=== PATIENT | female | born 1985 | race Caucasian/White ===

== ENCOUNTER 2016-11-16 08:35 | Emergency (ER) | payer OTHER ==
[~2016-11-16 08:35] MED LIST: BENZ1TAB7 PO; DEP250A PO; DEP500A PO; HAL5 PO
[2016-11-16 08:44] VITALS: BP 136/96; PULSE 101; RESP 18; O2SAT 98
--- NOTE | 2016-11-16 08:48 | ED.REPORT ---
HPI-Psychiatric Illness Date of Service Nov 16, 2016 ED Provider: Kurt Najera DO The patient is a 31 year old female with a hx of schizophrenia and polysubstance abuse who presents to the ED by EMS after standing outside for 18 hrs in the rain. Family called 911 after the pt would not come inside. On scene , she will not talk to medics or police. Pt has no complaints, denies suicidal ideation and states she has no pain or problems. She saw a counselor on the 01 of November. Nursing Notes Stated Complaint: MENTAL EVAL Chief Complaint: General Complaint Nursing Notes Reviewed: Yes Allergies: Coded Allergies: Sulfa (Sulfonamide Antibiotics) (Verified Allergy, Severe, 06/29/15) Scheduled Benztropine Mesylate (Benztropine Mesylate) 1 Mg Tablet 1 MG PO BID Divalproex DR (Depakote DR) 250 Mg Tablet 250 MG PO HS Divalproex DR (Depakote DR) 500 Mg Tablet 500 MG PO HS Haloperidol (Haloperidol) 5 Mg Tablet 10 MG PO HS Haloperidol (Haloperidol) 5 Mg Tablet 10 MG PO DAILY General Time Seen by MD: 08:47 Chief Complaint Bizarre behavior Hx Obtained From: EMS Unable to Obtain Hx: Patient condition Arrived By: Ambulance Onset Occurred: 17 - 20 hours ago Symptom Duration: Since onset Progression Since Onset: Unchanged Severity: Current: No pain currently Similar Sx Previous: No Risk-Psychiatric Illness Suicide Risk Stratification RF Statements: Risk factors reviewed Past Medical History Past Medical History Notes: recent admit for EtOH intox requiring intubation Past Medical History 1) Schizophrenia 2) History of polysubstance abuse Past Surgical History Unknown Smoking History Light Tobacco Smoker Social History Drug Use: Meth, Other Ambulatory Status Independent Review of Systems Unable to Obtain ROS Patient condition, Mental status Physical Exam Initial Vital Signs Vital Signs (First) Date Time Temp Pulse Resp B/P Pulse Ox O2 Delivery O2 Flow Rate FiO2 11/16/16 08:44 36.5 101 18 136/96 98 Room Air Initial VS: Reviewed Head / Eyes: Atraumatic, Normocephalic, PERRL Respiratory: Breath sounds normal, Clear to auscultation, No respiratory distress Cardiovascular: Regular rate & rhythm, Heart sounds normal Abdomen / GI: Soft, Non-tender, No guarding, No rebound Extremities: Vascular intact, Neuro intact, No swelling, No tenderness Skin: Warm General/Constitutional: Awake does not respond to questions intially refuses to follow nurse and doctor commands Mental Status: Positive: Unresponsive Psychiatric: Not suicidal Interpretation & Diagnostics Lab Results Interpretation Result Diagram: 11/16/16 0903 11/16/16 0903 Test 11/16/16 09:03 11/16/16 12:24 White Blood Count 7.7th/mm3 (3.8-10.1) Red Blood Count 4.49mil/mm3 (3.90-5.20) Hemoglobin 14.7g/dL (12.0-15.6) Hematocrit 43.7% (35.0-46.0) Mean Corpuscular Volume 97.3fL (81-100) Mean Corpuscular Hemoglobin 32.7pg (27.0-35.0) Mean Corpuscular Hemoglobin Concent 33.6% (32.0-37.0) Red Cell Distribution Width 12.2% (12.3-15.4) Platelet Count 185bil/L (150-400) Neutrophils (%) (Auto) 68.9% (40-74) Lymphocytes (%) (Auto) 24.5% (14-46) Monocytes (%) (Auto) 5.3% (4-12) Eosinophils (%) (Auto) 0.9% (0-5) Basophils (%) (Auto) 0.3% (0-3) Sodium Level 138mEq/L (134-144) Potassium Level 4.3mEq/L (3.5-5.2) Chloride Level 98mEq/L (97-108) Carbon Dioxide Level 20mmol/L (18-29) Blood Urea Nitrogen 12mg/dL (6-20) Creatinine 0.88mg/dL (0.57-1.00) Estimat Glomerular Filtration Rate 107mL/min (>59) Glucose Level 97mg/dL (60-99) Calcium Level 9.6mg/dL (8.5-10.1) Total Bilirubin 0.3mg/dL (0.0-1.2) Aspartate Amino Transf (AST/SGOT) 19U/L (0-50) Alanine Aminotransferase (ALT/SGPT) 22U/L (0-32) Alkaline Phosphatase 113U/L (25-150) Total Protein 7.1g/dL (6.4-8.4) Albumin 4.6g/dL (3.4-5.0) Thyroid Stimulating Hormone (TSH) 2.000uIU/mL (0.450-4.500) Hold Lima Top Tube Received (Received) Urine Color Dark yellow (YELLOW) Urine Appearance Cloudy (CLEAR,HAZY) Urine pH 5.5 (5.0-8.0) Urine Specific [place] 1.030 (1.003-1.035) Urine Protein 30mg/dL (NEG,TRACE) Urine Glucose (UA) Negativemg/dL (NEGATIVE) Urine Ketones 40mg/dL (NEGATIVE) Urine Occult Blood Large (NEGATIVE) Urine Nitrite Negative (NEGATIVE) Urine Bilirubin Negative (NEGATIVE) Urine Urobilinogen Normalmg/dL (NORMAL) Urine Leukocyte Esterase Small (NEGATIVE) Urine RBC 3-10/hpf (0-2) Urine WBC 11-50/hpf (0-5) Urine Epithelial Cells Moderate/hpf (NONE-MOD) Urine Crystals Amorphous urates (NONE Urine Bacteria Few/hpf (NONE-FEW) Urine Hyaline Casts None/lpf (NONE) Urine Granular Casts None seen (NONE SEEN) Urine Waxy Casts None seen (NONE SEEN) Urine Red Blood Cell Casts None seen (NONE SEEN) Urine White Blood Cell Casts None seen (NONE SEEN) Urine Mucus Present (None Seen) Urine Trichomonas None seen (NONE SEEN) Urine Yeast None (NONE SEEN) Urinalysis Comment Urine Culture Reflexed Indicated Re-Eval/Medical Decision Med Decision/Clinical Course I suspect that this is severely decompensated mental illness. I recommended that this patient be detained. Patient denied any urinary tract infection symptoms such as burning urgency or frequency. This is asymptomatic bacteriuria I do not suspect that this needs treatment with antibiotics. Counseled Regarding: Diagnosis, Lab results, Need for admission Discharge & Departure Shift Change Sign-Out Patient Care Transferred: Yes Discussed Complaint(s): Yes Additonal Information: Awt placement Impression: Primary Impression: Schizophrenia Schizophrenia type: unspecified Qualified Code: F20.9 - Schizophrenia, unspecified )( Condition at Discharge: Clear for psych facility Disposition: ADMITTED TO HOSPITAL Discharge Condition All VS Reviewed: Yes Condition: Stable Referrals: NOPCP (PCP) [facility] Care Transferred to: [facility] Care Transferred at: 15:20 Scribe Attestation Portion of this note were transcribed by Alayna Graham. I, Dr. O'Nella, personally performed the history, physical exam, and medical decision-making: I reviewed and confirmed the accuracy for the information in the transcribed note. Signed by: ruchi Sharp, 11/16/16 1500 copies to: KYRIE; [facility] Kurt Najera DO Nov 16, 2016 08:47 Alayna Graham Nov 16, 2016 10:01
[2016-11-16 09:14] LABS: BASOPHILS % (AUTO) 0.3 % (0-3); EOSINOPHILS % (AUTO) 0.9 % (0-5); MONOCYTES % (AUTO) 5.3 % (4-12); Mean Corpuscular Hemoglobin 32.7 pg (27.0-35.0); Mean Corpuscular Volume 97.3 fL (81-100); NEUTROPHILS % (AUTO) 68.9 % (40-74); Platelet Count 185 bil/L (150-400)
[2016-11-16 10:00] VITALS: BP 130/80; PULSE 93; RESP 16; O2SAT 96
[2016-11-16 13:00] VITALS: BP 136/82; PULSE 93; RESP 14; O2SAT 96
[2016-11-16 13:05] LABS: APPEARANCE,URINE CLOUDY (CLEAR,HAZY); COLOR,URINE DARK YELLOW (YELLOW); PH,URINE 5.5 (5.0-8.0)
[2016-11-16 13:06] LABS: OCCULT BLOOD,URINE LARGE (NEGATIVE); UROBILINOGEN,URINE NORMAL (NORMAL)
[2016-11-16 15:54] VITALS: BP 133/75; PULSE 90; RESP 16; O2SAT 97
[2016-11-16 17:41] VITALS: BP 140/90; PULSE 96; RESP 14; O2SAT 96
== END 2016-11-16 17:42 | disposition other institution (70) ==
LOC: SED 08:35 → EDBD 08:35 → SED 17:42
DX: F20.9 Schizophrenia, unspecified (principal); F15.90 Other stimulant use, unspecified, uncomplicated; Z79.899 Other long term (current) drug therapy; Z88.2 Allergy status to sulfonamides

== ENCOUNTER 2016-12-17 11:02 | Emergency (ER) | payer OTHER ==
[~2016-12-17] VITALS: Ht 162.6 cm; Wt 91.0 kg
[2016-12-17 11:29] VITALS: BP 150/103; PULSE 90; RESP 18; O2SAT 98
--- NOTE | 2016-12-17 12:31 | ED.REPORT ---
HPI-Psychiatric Illness Date of Service December 17, 2016 ED Provider: Nursing Notes Stated Complaint: PSYCHIATRIC Chief Complaint: Psychiatric Complaint Allergies: Coded Allergies: Sulfa (Sulfonamide Antibiotics) (Verified Allergy, Severe, 06/29/15) Scheduled Benztropine Mesylate (Benztropine Mesylate) 1 Mg Tablet 1 MG PO BID Divalproex DR (Depakote DR) 250 Mg Tablet 250 MG PO HS Divalproex DR (Depakote DR) 500 Mg Tablet 500 MG PO HS Haloperidol (Haloperidol) 5 Mg Tablet 10 MG PO HS Haloperidol (Haloperidol) 5 Mg Tablet 10 MG PO DAILY Lorazepam (Lorazepam) 1 Mg Tablet 1 MG PO QID Metronidazole (Metronidazole) 500 Mg Tablet 500 MG PO BID Olanzapine (Zyprexa) 5 Mg Tablet 5 MG PO BID General Time Seen by MD: 12:31 Past Medical History Past Medical History Notes: recent admit for EtOH intox requiring intubation Past Medical History 1) Schizophrenia 2) History of polysubstance abuse Past Surgical History Unknown Smoking History Light Tobacco Smoker Social History Drug Use: Meth, Other Ambulatory Status Independent Physical Exam Initial Vital Signs Vital Signs (First) Date Time Temp Pulse Resp B/P Pulse Ox O2 Delivery O2 Flow Rate FiO2 12/17/16 11:29 36.6 90 18 150/103 98 12/17/16 23:41 Room Air Interpretation & Diagnostics Lab Results Interpretation Result Diagram: 12/17/16 1310 12/17/16 1310 Test 12/17/16 13:10 White Blood Count 8.8th/mm3 (3.8-10.1) Red Blood Count 4.56mil/mm3 (3.90-5.20) Hemoglobin 14.9g/dL (12.0-15.6) Hematocrit 44.4% (35.0-46.0) Mean Corpuscular Volume 97.4fL (81-100) Mean Corpuscular Hemoglobin 32.7pg (27.0-35.0) Mean Corpuscular Hemoglobin Concent 33.6% (32.0-37.0) Red Cell Distribution Width 12.1% (12.3-15.4) Platelet Count 170bil/L (150-400) Neutrophils (%) (Auto) 62.5% (40-74) Lymphocytes (%) (Auto) 27.8% (14-46) Monocytes (%) (Auto) 6.8% (4-12) Eosinophils (%) (Auto) 2.4% (0-5) Basophils (%) (Auto) 0.3% (0-3) Sodium Level 141mEq/L (134-144) Potassium Level 3.9mEq/L (3.5-5.2) Chloride Level 100mEq/L (97-108) Carbon Dioxide Level 27mmol/L (18-29) Blood Urea Nitrogen 8mg/dL (6-20) Creatinine 0.78mg/dL (0.57-1.00) Estimat Glomerular Filtration Rate 123mL/min (>59) Glucose Level 96mg/dL (60-99) Calcium Level 10.0mg/dL (8.5-10.1) Total Bilirubin 0.3mg/dL (0.0-1.2) Aspartate Amino Transf (AST/SGOT) 22U/L (0-50) Alanine Aminotransferase (ALT/SGPT) 21U/L (0-32) Alkaline Phosphatase 107U/L (25-150) Total Protein 7.5g/dL (6.4-8.4) Albumin 4.8g/dL (3.4-5.0) Thyroid Stimulating Hormone (TSH) 3.160uIU/mL (0.450-4.500) Hold Lima Top Tube Received (Received) Valproic Acid (Depakene) Level 3ug/mL (50-125) Discharge & Departure Referrals: NOPCP (PCP) Kurt Najera DO December 17, 2016 12:31
--- NOTE | 2016-12-17 12:37 | ED.REPORT ---
HPI-Psychiatric Illness Date of Service December 17, 2016 ED Provider: History of Present Illness: 31yo female with hx. of schizophrenia, reportedly not at baseline per accompanying sample case porter from [facility]. Pt. does report some use of unspecified illicit substances. Declines to answer most questions about her health history, including psych medication compliance. She denies any SI/HI. Nursing Notes Stated Complaint: PSYCHIATRIC Chief Complaint: Psychiatric Complaint Nursing Notes Reviewed: Yes Allergies: Coded Allergies: Sulfa (Sulfonamide Antibiotics) (Verified Allergy, Severe, 06/29/15) Scheduled Benztropine Mesylate (Benztropine Mesylate) 1 Mg Tablet 1 MG PO BID Divalproex DR (Depakote DR) 250 Mg Tablet 250 MG PO HS Divalproex DR (Depakote DR) 500 Mg Tablet 500 MG PO HS Haloperidol (Haloperidol) 5 Mg Tablet 10 MG PO HS Haloperidol (Haloperidol) 5 Mg Tablet 10 MG PO DAILY General Time Seen by MD: 12:31 Chief Complaint Bizarre behavior brokerage office manager reports increased "standing and staring." Hx Obtained From: Processing Inspector ([facility] case sealer) Arrived By: Walk-in Onset Occurred: Onset unknown Symptom Duration: Duration unknown Recent Healthcare: No recent doctor visit Similar Sx Previous: Yes Risk-Psychiatric Illness Suicide Risk Stratification Suicide Risk Factors - Adult: : Prior psych admission: Substance abuse RF Statements: Risk factors reviewed Past Medical History Past Medical History Notes: recent admit for EtOH intox requiring intubation Past Medical History 1) Schizophrenia 2) History of polysubstance abuse Past Surgical History Unknown Smoking History Light Tobacco Smoker Social History Drug Use: Meth, Other Ambulatory Status Independent Review of Systems Unable to Obtain ROS Patient condition Physical Exam Initial Vital Signs Vital Signs (First) Date Time Temp Pulse Resp B/P Pulse Ox O2 Delivery O2 Flow Rate FiO2 12/17/16 11:29 36.6 90 18 150/103 98 12/17/16 23:41 Room Air Initial VS: Reviewed General/Constitutional: No acute distress, Well hydrated Alertness: Positive: Confused (schizo-affect) Behavior: Positive: Uncooperative, Withdrawn Psychiatric: Not suicidal, Not homicidal Abnormal Mood/Affect: Positive: Flat affect Respiratory / Chest: Breath sounds NL, Breath sounds = bilat, No respiratory distress Cardiovascular: Heart rate NL, Regular rhythm, Heart sounds NL Abdomen: Soft, No guarding Interpretation & Diagnostics Interpretation & Diagnostics: Serum Valproic acid =3 (range 50-100) Lab Results Interpretation Result Diagram: 12/17/16 1310 12/17/16 1310 Test 12/17/16 13:10 White Blood Count 8.8th/mm3 (3.8-10.1) Red Blood Count 4.56mil/mm3 (3.90-5.20) Hemoglobin 14.9g/dL (12.0-15.6) Hematocrit 44.4% (35.0-46.0) Mean Corpuscular Volume 97.4fL (81-100) Mean Corpuscular Hemoglobin 32.7pg (27.0-35.0) Mean Corpuscular Hemoglobin Concent 33.6% (32.0-37.0) Red Cell Distribution Width 12.1% (12.3-15.4) Platelet Count 170bil/L (150-400) Neutrophils (%) (Auto) 62.5% (40-74) Lymphocytes (%) (Auto) 27.8% (14-46) Monocytes (%) (Auto) 6.8% (4-12) Eosinophils (%) (Auto) 2.4% (0-5) Basophils (%) (Auto) 0.3% (0-3) Sodium Level 141mEq/L (134-144) Potassium Level 3.9mEq/L (3.5-5.2) Chloride Level 100mEq/L (97-108) Carbon Dioxide Level 27mmol/L (18-29) Blood Urea Nitrogen 8mg/dL (6-20) Creatinine 0.78mg/dL (0.57-1.00) Estimat Glomerular Filtration Rate 123mL/min (>59) Glucose Level 96mg/dL (60-99) Calcium Level 10.0mg/dL (8.5-10.1) Total Bilirubin 0.3mg/dL (0.0-1.2) Aspartate Amino Transf (AST/SGOT) 22U/L (0-50) Alanine Aminotransferase (ALT/SGPT) 21U/L (0-32) Alkaline Phosphatase 107U/L (25-150) Total Protein 7.5g/dL (6.4-8.4) Albumin 4.8g/dL (3.4-5.0) Thyroid Stimulating Hormone (TSH) 3.160uIU/mL (0.450-4.500) Hold Lima Top Tube Received (Received) Valproic Acid (Depakene) Level 3ug/mL (50-125) Re-Eval/Medical Decision Med Decision/Clinical Course Pt. is non-compliant with meds, likely resulting in decompensation of schizophrenia. FOR[facility] PATROLMAN consulted and reports Pt. has VELASQUEZ, requiring CDMHP eval in ED to consider possible detainment. Juan J Reid, CDP came and evaluated Pt. She will be detained to [facility], bed available at 12:00AM Counseled Regarding: Diagnosis, Need for transfer Discharge & Departure Impression: Primary Impression: Schizophrenia Schizophrenia type: undifferentiated schizophrenia Qualified Code: F20.3 - Undifferentiated schizophrenia Additional Impression: Noncompliance with medication regimen )( Condition at Discharge: Clear for psych facility Disposition: Transfer, Psychiatric Inpt Transfer Requested at: 21:00 Receiving Hospital: [facility] Transfer Accepted: Yes Transfer Accepted at: 21:30 Transfer Reason: Higher level of care Patient Informed: Unable Referrals: NOPCP (PCP) EDSupervising Provider for APC: Steven Mcleod MD, Christopher R PAC December 17, 2016 12:37 Steven Mcleod MD December 18, 2016 07:21
[2016-12-17 13:23] LABS: BASOPHILS % (AUTO) 0.3 % (0-3); EOSINOPHILS % (AUTO) 2.4 % (0-5); MONOCYTES % (AUTO) 6.8 % (4-12); Mean Corpuscular Hemoglobin 32.7 pg (27.0-35.0); Mean Corpuscular Volume 97.4 fL (81-100); NEUTROPHILS % (AUTO) 62.5 % (40-74); Platelet Count 170 bil/L (150-400)
[2016-12-17 23:41] VITALS: BP 128/84; RESP 16; O2SAT 95
== END 2016-12-17 23:45 | disposition other institution (70) ==
LOC: SED 11:02
DX: F20.3 Undifferentiated schizophrenia (principal); Z91.14 Patient's other noncompliance with medication regimen; F17.200 Nicotine dependence, unspecified, uncomplicated; Z88.2 Allergy status to sulfonamides

== ENCOUNTER 2016-12-20 12:20 | Inpatient (IN) | payer MEDICAID, OTHER ==
[~2016-12-20] VITALS: Ht 162.6 cm; Wt 91.5 kg
--- NOTE | 2016-12-20 16:05 | NUR ---
0700- 1900. nurs. Admit note .. 31 y.o. female pt admitted to [facility] at 1455 from [facility], transported by [facility]. Pt has outpt care with [place] services, AMAURY Salinas, and Dr Perez. Pt was on LRO since prev recent hosp. at [facility], but was apparently failing to take meds, not eating, sleeping, or taking care of hygiene, standing outside her apt building for several hours at a time unresponsive, not paying rent at risk of eviction. Pt apparently has hx of meth and MJ abuse, and reports use, but RDS in [facility] ED on 12/17 negative. Pt admitted to [facility] on a petition to revoke LRO and is now on a order for continuance with hearing on 12/25/16. Pt transferred to [facility] because of pt privacy concerns at [facility]. On admission pt pleasant, familiar with unit, some latency in verbal expression ,some sadness re not wanting to be spending time in hospital wanting "to have a greater spiritual experience" and denying AHs but c/o GUZMAN on R. temporal area and some pinching pain in small area of L temporal area. Pt reporting that she is not menstruating as reported " because I am " Pt is on metronidazole 500mg po BID for 7 days [facility] Pt has bartholin gland cyst on L. labia txed with warm wet compresses. Pt has possible bacterial vaginosis.
[2016-12-20] MEDS ORDERED: LORA1TAB PO (17:07)
[2016-12-20] MEDS ORDERED: METR500T19 PO (17:07)
[2016-12-20] MEDS ORDERED: OLAN5TAB4 PO (17:11)
[2016-12-20] MEDS ORDERED: Magnesium Hydroxide 10 mL Oral Concentration PO PRN (17:20)
[2016-12-20] MEDS ORDERED: Benzocaine-Menthol Lozenge 2/Pkg PO PRN (17:20)
--- NOTE | 2016-12-20 20:35 | NUR ---
Observations 0900 to 0 Pt arrived on unit at 1455 and was able to complete the admission process and signed all paperwork. Pt affect and mood was flat, guarded and isolative. Pt was in her room and isolative most of the shift coming out to D.R. occasionally. Pt was minimally social when approached by staff, responding with short answers. Pt attended meals in D.R. and 100% of dinner. Pt was offered snack but declined. Pt was observed every 15 minutes throughout the shift as ordered. Pt is currently in bed resting, respirations apparent.
[2016-12-20] MEDS: METRONIDAZOLE 500 MG PO SCH (21:50)
--- NOTE | 2016-12-21 05:20 | NUR ---
nursing, nights, 11-7 s/o- has appeared to sleep after 2114 during q 15 minute assessments. a- no apparent distress. p- monitor behavior/emotional state, quality, times and amount of sleep, use and effect of medication. milly
[2016-12-21] MEDS: METRONIDAZOLE 500 MG PO SCH ×2 (07:48→20:35)
[2016-12-21 10:15] VITALS: BP 127/85; PULSE 77; RESP 16
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
--- NOTE | 2016-12-21 21:12 | NUR ---
Observations 0900 to 2130 Pt affect and mood was flat, guarded and isolative. Pt has been standing in her doorway/hallway and staring down the hallway refusing to respond when approached and getting worse throughout the day. Pt was isolative coming in and out of room and out to D.R. occasionally. Pt was minimally social when approached by staff, responding with one word answers and head nods. Pt almost appears. Pt attended meals in D.R. and ate approximately 50-60% of meals. Pt was offered snack but declined. Pt was observed every 15 minutes throughout the shift as ordered.
[2016-12-21] MEDS: LORazepam 1 mg Tablet PO PRN (21:58)
--- NOTE | 2016-12-22 05:34 | NUR ---
Pt rigidly standing in hallway staring ahead with a fixed gaze, attempting to respond to questions but unable to get out a word except for an inaudible answer. Movements are much delayed she does not engage in spontaneous conversation and has difficulty making needs known. Pt has great difficulty following through on a task, encouraged her to communicate with a thumbs up or down but she was unable to. She is disheveled, thought blocking evident and although she needed many prompts to swallow medications she was compliant. Pt received Ambien 5mg and Ativan 1mg at 2158. Pt slept 7.25 hours without interruption.
[2016-12-22 08:00] VITALS: BP 116/80; PULSE 87; RESP 18
[2016-12-22] MEDS: METRONIDAZOLE 500 MG PO SCH ×2 (08:07→20:32)
--- NOTE | 2016-12-22 12:47 | PCM.PNPSY ---
Subjective Date of Service December 22, 2016 Subjective I spent 30 minutes both reviewing treatment plan with clinical team, interviewing the patient and providing supportive/educational psychotherapy. I spent more than 50% of the time counseling the patient. I reviewed the treatment plan with the patient and discussed options available including the potential risks, benefits and side effects. [place] reports being sad and missing her family. She continues to have severe impairment in Thought organization and mood stability. Staff reports that she has been attempting to participate in one-to-one unit and group activities but that she is so psychomotor retarded that she is having difficulty. She slept 6 hours. She denies medication side effects. Patient was not able to identify her medications or what they were used to treat. Current Medications Current Medications Clonazepam 0.5 mg BID PO Last administered on 12/22/16 08:07; Admin Dose 0.5 MG ; Start 12/21/16 at 20:30 Lorazepam 1 mg Q4H PRN PO Last administered on 12/21/16 21:58; Admin Dose 1 MG ; Start 12/20/16 at 17:20 Olanzapine 5 mg BID PO Last administered on 12/21/16 07:49; Admin Dose 5 MG; Start 12/20/16 at 20:30; Stop 12/21/16 at 14:24; Status DC Olanzapine 10 mg BID PO Last administered on 12/22/16 08:07; Admin Dose 10 MG; Start 12/21/16 at 20:30 Patient Own Medication 1 ea BID PO Last administered on 12/22/16 08:07; Admin Dose 1 EA; Start 12/20/16 at 20:30 Zolpidem Tartrate 5 mg HS PRN PO Last administered on 12/21/16 21:58; Admin Dose 5 MG; Start 12/20/16 at 17:20 Mental Status Exam Vital Signs Vital Signs Date Time Temp Pulse Resp B/P Pulse Ox O2 Delivery O2 Flow Rate FiO2 12/22/16 08:00 37.0 87 18 116/80 Appearance: Unkept, Disheveled Attitude: Guarded Behavior: Other (prolonged blank stare) Affect: Restricted, Flat Mood: Dysthymic, Fearful Thought Process/Associations: Blocking Speech Production: Soft, Mumbled Speech Rate: Lags/Latency Speech Articulation: Slurred Thought Content: Anabaptism preoccupation Danger to Self/Suicidal Ideati: None Danger to Others: None Delusions: Other (Preocupation "getting to Eros") Hallucinations: Auditory (Denies), Visual (Denies) Consciousness: Alert Orientation: Person, Place, Date, Situation Memory: Grossly Intact Estimate Intellectual Function: Below Average Basis for IQ estimate: Word use/vocabulary, Educational history (9th grade education) Cognitive Testing Method: Spelling forward & backward Insight: Limited Judgement: Limited Mental Health Plan Patient is a 31 yo female in a nearly catatonic state and a very poor historian. She has a history of schizophrenia and poly substance abuse and was transferred to the care center from [facility] due to her ex-spouse being on staff there. She was evaluated in [facility] ED on 12/17/16 for bizarre behavior and transferred to [facility] where a bed was available. Per nursing staff, patient 's ex- is on staff which led to a "conflict of interest resulting in legal matters", they requested a transfer to our facility. She has likely been noncompliant with her medications leading to decompensation. Substance abuse is likely a contributing factor however patient is not specific about recent use and urine tox dip in the ED on 12/17/16 was negative. She appears disheveled, acting detached, and bizarre. She has intense feelings about God in that she wants Him to be respected and when asked about family history she states that her mother has diabetes type II or she used to if God has cured it already. She does not seem to have an extraordinary relationship with God as they have no way of communicating with each other with the exception of prayer. She does feel her primary goal is to get to [place]. She presents suspicious and guarded with prolonged blank stare. Her Thought process is guarded with occasional thought blocking. [place] AXIS I: schizophrenia chronic paranoid poly substance abuse AXIS II: differed AXIS III: bacterial vaginosis AXIS IV: medication non compliance AXIS V: GAF 25 Treatments Patient is being provided with a high degree of safety through the structure and active adult engagement. We will focus on developing improved coping skills and identifying stressors that may have led to current episode. We will attempt to: Integrate into therapeutic groups, milieu and individual therapy. Maintain in a closely monitored and structured unit Provide low-stimulation environment Obtain collateral data to assist in treatment planning Assess degree of lability of affect and impulse control Complete safety plan Decrease frequency of relapse and need for re-hospitalization Denies thoughts of harm to self Establish a consistent sleep pattern Use medication effective in stabilization of mood and/or thought process Reduce the risk of imminent harm to self and/or others by providing a safe environment Assure patient tolerates medication without side effects Patient will be on the following psychiatric medications: metronidazole Zyprexa increase to 10mg PO BID Legal status: 90 day petition to revoke. Patient will have a chance to talk to the traffic survey technician on Saturday. Clayton Cash MD December 22, 2016 12:46
--- NOTE | 2016-12-22 14:52 | NUR ---
Nursing Notes Day shift S: Can I watch a movie? O: Pt asked appropriate questions today. Pt more interactive today, she does stand and stare at people, appears catatonic. Pt responds to direct questions with a very mumbled, quiet response that is difficult to understand. A: Pt appears disheveled, her hair unkempt. Pt slow to respond. Pt will stand and just stare with a fixed gaze at other people, almost through them. Pt has interacted with other patients today and has also participated in group meeting this morning P: Follow plan of care, monitor behaviors.
--- NOTE | 2016-12-22 19:40 | NUR ---
Observations 0900 to 2130 Pt maintained behavioral control throughout the shift. Pt mostly communicates in 1-2 words, spent most of day staring vacantly. Pt communicated more successfully in morning and communication decreased as day went on. Pt attended community meeting and said daily goal was to get out of hospital. Pt briefly sat on patio and threw nerf football. Pt smiled once at a joke from peer but otherwise was flat, withdrawn. pt ate 50-75% of meals and was observed every 15 minutes as ordered.
--- NOTE | 2016-12-23 05:18 | NUR ---
Nursing Note 7pm to 11pm Open Tenter Operator Pt appears somewhat improved, less mute with peers and select staff, hygiene improved, however when this personal lines underwriter approached pt. she smiled but would not answer questions. Pt took meds with less time examining them. Still paranoid and guarded. Received Ambien 5mg for sleep and slept without interruption throughout the night. Monitored pt. with q15 min face checks for safety location and accountability
[2016-12-23] MEDS: METRONIDAZOLE 500 MG PO SCH ×2 (07:43→20:58)
[2016-12-23 08:30] VITALS: BP 138/95; PULSE 98; RESP 16
--- NOTE | 2016-12-23 11:56 | NUR ---
Nursing Note [id number] Behavior S/O: Pt ate 100% of breakfast. Pt took am medications as ordered. Pt d/n attend group, but stood in hallway instead. Pt has no interaction with peers. When asked questions, she answered me in an extremely muffled tone or with her lips closed. Pt has no eye contact with staff or peers. A: Pt is paranoid & guarded. P: Provide supportive environment. Monitor medications & effects.
--- NOTE | 2016-12-23 18:35 | PCM.PNPSY ---
Subjective Date of Service December 23, 2016 Subjective The patient only had minimal responses to questions. She seemed quite apprehensive and fearful. She denied side effects. Sleep: 7 hours, "a little" Appetite: "Okay" Suicidal and homicidal ideation: Denied Auditory hallucinations: Would not respond Visual hallucinations: Would not respond Other Psychotic Symptoms: Appeared quite frightened Anxiety: Endorsed Depression: Would not respond Current Medications Current Medications Clonazepam 0.5 mg BID PO Last administered on 12/23/16 07:43; Admin Dose 0.5 MG ; Start 12/21/16 at 20:30 Olanzapine 10 mg BID PO Last administered on 12/23/16 07:43; Admin Dose 10 MG; Start 12/21/16 at 20:30 Mental Status Exam Appearance: Unkept, Disheveled Attitude: Guarded Behavior: Other (prolonged blank stare) Affect: Restricted, Flat Mood: Dysthymic, Fearful Thought Process/Associations: Blocking Speech Production: Soft, Mumbled Speech Rate: Lags/Latency Speech Articulation: Slurred Thought Content: Other (difficult to assess) Danger to Self/Suicidal Ideati: None Danger to Others: None Delusions: Other (Preocupation "getting to Eros") Hallucinations: Auditory (unable to assess), Visual (unable to assess) Consciousness: Alert Orientation: Person, Place, Situation Memory: Untestable Estimate Intellectual Function: Below Average Basis for IQ estimate: Word use/vocabulary, Educational history (9th grade education) Attention/Concentration & Cogn: Impaired Insight: Limited Judgement: Limited Mental Health Plan Patient is a 31 yo female in a nearly catatonic state which makes her a very poor historian with history of schizophrenia and poly substance abuse transferred [facility] the [facility] from [facility]. She was evaluated in [facility] ED on 12/17/16 for bizarre behavior and transferred to [facility] where a bed was available. Per nursing staff, patient's ex- is on staff which led to a "conflict of interest resulting in legal matters", they requested a transfer to our facility. She has likely been noncompliant with her medications leading to decompensation. The patient is here on a petition for revocation of less restrictive order. Substance abuse is likely a contributing factor however patient is not specific about recent use and urine tox dip in the ED on 12/17/16 was negative. She appears disheveled, acting detached, and bizarre. She has intense feelings about God in that she wants him to be respected and when asked about family history she states that her mother has diabetes type II or she used to if God has cured it already. She reported her primary goal is to get to [place]. She presents suspicious and guarded with prolonged blank stare. Due to her level of thought blocking or current level of psychosis is difficult to assess. [place] AXIS I: Schizophrenia, chronic paranoid type Poly substance use disorder AXIS II: Deferred AXIS III: Bacterial vaginosis AXIS IV: Unknown AXIS V: GAF 25 Medications Metronidazole 500 mg twice a day Olanzapine 10 mg twice a day Clonazepam 0.5 mg twice daily Zolpidem 5 mg nightly as needed for insomnia Lorazepam 1 mg every 4 hours as needed for anxiety or agitation Treatments 1. The patient is admitted to the inpatient unit and will be provided a safe and secure environment. 2. The patient is denying current active suicidality and is not in need of a one-to-one at this time. 3. The patient is encouraged to participate with group and milieu activities. 4. The patient will be seen by the treatment team on a daily basis to assess symptoms, side effects and response to treatment. 5. Continue current medications 6. Contact outpatient provider regarding need for mood stabilizer or alternate medication. 7. Anticipated length of stay is 14+ days. Quinn Rosen MD December 23, 2016 18:35
--- NOTE | 2016-12-23 19:39 | NUR ---
Observations 0900 to 2130 Pt affect and mood was flat, guarded, withdrawn and isolative. Pt has been standing in her doorway/hallway and staring down the hallway at times. Pt was isolative coming in and out of room and out to D.R. occasionally. Pt was minimally social when approached by staff, responding with one word answers and head nods. Pt had a visitor and it appeared to go well. Pt attended meals in D.R. and ate 100% of breakfast and 75% of lunch. Pt has not eaten dinner yet. Pt was offered snack but declined. Pt took a shower with some encouragement from staff. Pt was observed every 15 minutes throughout the shift as ordered. Pt is currently resting in bed, eyes closed, respirations apparent.
--- NOTE | 2016-12-23 23:25 | NUR ---
Nurses Note Evening Patient has been nearly mute whispering and isolating to her room. Patient has psychomotor retardation. She was visited by a male friend without improved spontaneity. Patient remains medication compliant without adverse effects. Her hygiene and appetite have been poor,sleep undisturbed. Will maintain q 15min. checks for safety and support. Addendum: 12/23/16 at 2331 by RAN MARTINEZ RN Amended: Links added.
--- NOTE | 2016-12-24 05:38 | NUR ---
Nursing note: shift supervisor rn/sleep Patient appears to be sleeping on safety checks during the night, no complaints voiced
[2016-12-24 08:50] VITALS: BP 124/87; PULSE 76; RESP 15
[2016-12-24] MEDS: METRONIDAZOLE 500 MG PO SCH ×2 (09:34→20:23)
--- NOTE | 2016-12-24 13:16 | NUR ---
Nursing Note [id number] Behavior S/O: Pt ate 100% of breakfast & lunch. Vital signs stable. Pt has been able to talk minimally with peers, staff & on the phone. Tone is very quiet, but understandable. Pt hesitant to answer questions. Pt asked why I came into her room while she was on the phone. Pt has intense stares at times or has avoidant gaze. Pt reports, "I'm going home tomorrow." She is scheduled for a hearing tomorrow & has agreed to take medications prior to court. A: Pt appears paranoid & guarded. She appears to be responding to internal stimuli. P: Provide supportive environment. Monitor medications & effects.
--- NOTE | 2016-12-24 16:14 | NUR ---
Observations 0900 to 2130 Pt affect and mood was flat, guarded, withdrawn and isolative. Pt has been in bed a majority of the shift, [facility] in the late morning and early afternoon. Pt was minimally social when approached by staff, responding with one word answers and head nods. Pt attended meals in D.R. and ate 100% of breakfast and 100% of lunch. Pt was offered snack but declined. Pt was observed every 15 minutes throughout the shift as ordered. Pt is currently resting in bed, eyes closed, respirations apparent.
[2016-12-24] MEDS: Divalproex (QD) 500 mg ER24 Tablet PO SCH (20:22)
--- NOTE | 2016-12-24 22:42 | PCM.PNPSY ---
Subjective Date of Service December 24, 2016 Subjective The patient was somewhat more talkative today. She furrowed her brow while looking intently at this writer technical publications. She assented that she believed that she was communicating telepathically. We review prior treatment with Haldol, Depakote and Zyprexa. She felt the Depakote was somewhat helpful. She denied side effects. Sleep: 9 hours Appetite: "Okay" Suicidal and homicidal ideation: Denied Auditory hallucinations: denies Visual hallucinations: denies Other Psychotic Symptoms: endorsed telepathy Anxiety: Endorsed Depression: Denied Current Medications Current Medications Divalproex Sodium 1,000 mg HS PO Last administered on 12/24/16t 20:22; Admin Dose 1,000 MG; Start 12/24/16 at 21:00 Mental Status Exam Appearance: Unkept, Disheveled Attitude: Guarded Behavior: Other (prolonged furrowed stare) Affect: Restricted, Flat Mood: Dysthymic, Fearful Thought Process/Associations: Blocking Speech Production: Soft, Mumbled Speech Rate: Lags/Latency Speech Articulation: Slurred Thought Content: Other (difficult to assess) Danger to Self/Suicidal Ideati: None Danger to Others: None Delusions: Other (Endorses telepathy) Hallucinations: Auditory (Denies), Visual (Denies) Consciousness: Alert Orientation: Person, Place, Situation Memory: Untestable Estimate Intellectual Function: Average (to ), Below Average Basis for IQ estimate: Word use/vocabulary, Educational history (9th grade education) Attention/Concentration & Cogn: Impaired Insight: Limited Judgement: Limited Mental Health Plan Patient is a 31 yo female who presented in a nearly catatonic state with a history of schizophrenia and polysubstance use [facility] She was evaluated in [facility] ED on 12/17/16 for bizarre behavior and transferred to [facility] where a bed was available. Per nursing staff, patient's ex- is on staff and they requested a transfer to our facility. The patient has been medication non-adherent leading to decompensation. The patient is here on a petition for revocation of less restrictive order. Substance abuse is likely a contributing factor however patient is not specific about recent use and urine tox screen in the ED on was negative. She appears disheveled, acting detached, and bizarre. She is also expressing synagogue preoccupation with her reported primary goal to get to [place]. She presents suspicious and guarded with prolonged blank stare. Due to her level of thought blocking or current level of psychosis is difficult to assess, but she did endorse telepathy today and agreed to take Depakote. [place] AXIS I: Schizophrenia, chronic paranoid type Poly substance use disorder AXIS II: Deferred AXIS III: Bacterial vaginosis AXIS IV: Unknown AXIS V: GAF 25 Medications Metronidazole 500 mg twice a day Olanzapine 10 mg twice a day Clonazepam 0.5 mg twice daily Zolpidem 5 mg nightly as needed for insomnia Lorazepam 1 mg every 4 hours as needed for anxiety or agitation Treatments 1. The patient is admitted to the inpatient unit and will be provided a safe and secure environment. 2. The patient is denying current active suicidality and is not in need of a one-to-one at this time. 3. The patient is encouraged to participate with group and milieu activities. 4. The patient will be seen by the treatment team on a daily basis to assess symptoms, side effects and response to treatment. 5. Add DepakoteER 1000mg po nightly 6. Contacted outpatient provider regarding need for mood stabilizer or alternate medication, but not available and message left. 7. Anticipated length of stay is 14+ days. Quinn Rosen MD December 24, 2016 22:42 Quinn Rosen MD December 24, 2016 22:42
--- NOTE | 2016-12-24 23:10 | NUR ---
NURSING NOTE [id number] Mood: "congest... congestion" Affect: constricted Behavior: Pt. isolating to her room for most of the shift. Did come out to eat dinner. Approached this pattern chart writer several times this shift as though she had a question to ask but would just stand and stare, silently. Thought processes: endorsing AH/VH but could not elaborate as to what they were. Pt. has delayed responses. Appears very guarded. Needs much encouragement to answer questions and then when she does answer it is in a very low whisper. When pt was asked about her mood she responded "congestion" but then denied any cold or congestion symptoms and then told this pattern chart writer "I just need to walk for a little bit" and asked this pattern chart writer to walk w/her. She laughed when this pattern chart writer asked her if she had set a goal for the day but could not explain why. Maikol Conn 5 mg @ HS
--- NOTE | 2016-12-25 06:15 | NUR ---
Nursing Note 11pm to 7am Director Of Rehabilitation Pt asleep at start of shift. Got Ambien 5mg at 2021 and slept through the night without interruption. No issues observed or reported. Monitored pt. with q 15 minute face checks for safety, location and accountability. Monitored pt with q 15 minute face checks for safety, location and accountability
[2016-12-25] MEDS: METRONIDAZOLE 500 MG PO SCH ×2 (08:30→21:23)
--- NOTE | 2016-12-25 14:16 | NUR ---
Nursing Note [id number] Behavior S/O: Pt ate 100% of breakfast & lunch today. When asked how she was feeling she stated, "I'm pissed. I want to go home. My rents paid and I'm wasting it." Pt requesting a test because she thinks she is . Pt had test done in our ER prior to her being sent to [facility] then being transferred here. Pt stopped talking & started mumbling after being told she wasn't . A: Pt has no insight into illness. P: Provide supportive environment. Monitor medications & effects.
[2016-12-25 14:25] VITALS: BP 111/59; PULSE 66; RESP 17
--- NOTE | 2016-12-25 16:43 | PCM.PNPSY ---
Subjective Date of Service December 25, 2016 Subjective Patient had recently woken from rest upon our visit today, she was minimally conversant. She has tried Risperidone in the past which made her "narcoleptic". Records from [facility] showed that she had been taking Invega 6 mg previously. She remains quiet and will only occasionally answer questions. She does state that she wants to be at home and safe with her kids. Sleep: 12 hours Appetite: "Okay" Suicidal and homicidal ideation: Denied Auditory hallucinations: denies Visual hallucinations: denies Other Psychotic Symptoms: endorsed telepathy, States that she wants to hurt the thoughts inside her. No racing thoughts Anxiety: Endorsed Depression: 12/19 Current Medications Current Medications Divalproex Sodium 1,000 mg HS PO Last administered on 12/24/16t 20:22; Admin Dose 1,000 MG; Start 12/24/16 at 21:00 Mental Status Exam Vital Signs Vital Signs Date Time Temp Pulse Resp B/P Pulse Ox O2 Delivery O2 Flow Rate FiO2 12/25/16 14:25 36.8 66 17 111/59 Appearance: Unkept, Disheveled Attitude: Guarded Behavior: Other (prolonged furrowed stare) Affect: Restricted, Flat Mood: Dysthymic, Fearful Thought Process/Associations: Blocking Speech Production: Soft, Mumbled Speech Rate: Lags/Latency Speech Articulation: Slurred Thought Content: Other (difficult to assess) Danger to Self/Suicidal Ideati: None Danger to Others: None Delusions: Other (Endorses telepathy) Hallucinations: Auditory (Denies), Visual (Denies) Consciousness: Alert Orientation: Person, Place, Situation Memory: Untestable Estimate Intellectual Function: Average (to ), Below Average Basis for IQ estimate: Word use/vocabulary, Educational history (9th grade education) Attention/Concentration & Cogn: Impaired Insight: Limited Judgement: Limited Mental Health Plan Patient is a 31 yo female who presented in a nearly catatonic state with a history of schizophrenia and polysubstance use [facility] from [facility]. She was evaluated in [facility] ED on 12/17/16 for bizarre behavior and transferred to [facility] where a bed was available. Per nursing staff, patient's ex- is on staff and they requested a transfer to our facility. The patient has been medication non-adherent leading to decompensation. The patient is here on a petition for revocation of less restrictive order. Substance abuse is likely a contributing factor however patient is not specific about recent use and urine tox screen in the ED on was negative. She appears disheveled, acting detached, and bizarre. She is also expressing restoration preoccupation with her reported primary goal to get to [place]. . Patient is sleeping well and remains tired. She has previously done well on Invega and Risperidone like medications per [facility] though she was very sleepy on Risperidone during the day. Patient somewhat more engaging with treatment team. [place] AXIS I: Schizophrenia, chronic paranoid type Poly substance use disorder AXIS II: Deferred AXIS III: Bacterial vaginosis AXIS IV: Unknown AXIS V: GAF 25 Medications Metronidazole 500 mg twice a day Olanzapine 10 mg twice a day Clonazepam 0.5 mg twice daily Zolpidem 5 mg nightly as needed for insomnia Lorazepam 1 mg every 4 hours as needed for anxiety or agitation Treatments 1. The patient is admitted to the inpatient unit and will be provided a safe and secure environment. 2. The patient is denying current active suicidality and is not in need of a one-to-one at this time. 3. The patient is encouraged to participate with group and milieu activities. 4. The patient will be seen by the treatment team on a daily basis to assess symptoms, side effects and response to treatment. 5. DepakoteER 1000mg po nightly, blood level after 5 days. 6. Add Risperidone 2 mg at bedtime only. Decrease Olanzapine to 5 mg BID starting tomorrow morning. 7. Anticipated length of stay is 14+ days. Attending Statement The patient was seen and examined together with Dr. Drake on 12-25-16 and I have added additional information to the note above. Holyl Drake DO December 25, 2016 16:43 Quinn Rosen MD December 25, 2016 22:19
--- NOTE | 2016-12-25 18:12 | NUR ---
Observations [id number] Pt was asleep upon start of shift. She slept much of the morning, waking up late for breakfast. She continues to speak very little to peers and staff, but more so then observed yesterday. Pt attended court today. She expressed the desire to leave and is not happy she has to stay. PT continues to say that she is . She attended group and was much more vocal and articulate then observed the rest of the day. Pt ate 100% of meals. She was observed every 15 minutes of shift as directed.
--- NOTE | 2016-12-25 19:59 | NUR ---
Nurses Note Evening Patient remains minimally verbal with poor eye contact. She has been out on the unit attempting to interact with peers. Patients' hygiene remains disturbed, her appetite and sleep patterns within normal limits.Will maintain q 15min. checks for safety and support. Addendum: 12/25/16 at 2002 by RAN MARTINEZ RN Amended: Links added.
[2016-12-25] MEDS: Divalproex (QD) 500 mg ER24 Tablet PO SCH (21:22)
[2016-12-25] MEDS: risperiDONE 2 mg Tablet PO SCH (21:23)
[2016-12-26] MEDS: METRONIDAZOLE 500 MG PO SCH ×2 (08:46→20:30)
[2016-12-26 13:24] VITALS: BP 114/78; PULSE 89; RESP 16
[2016-12-26] MEDS: Alum-Mag Hydrox-Simeth 30 mL Suspension PO PRN (13:43)
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
--- NOTE | 2016-12-26 18:25 | NUR ---
[facility] Day Shift Pt maintained behavioral control throughout the shift. Pt affect appears flat, somewhat brighter when engaged with staff or peers. Pt remains somewhat latent, though less so than noted on previous shifts. Pt spends most of the shift sitting quietly in the dining room, participating in unit activities, or resting in her room. Pt is appropriate with staff and peers when active on the unit. Pt attended community meeting and participated in group activities throughout the shift. Pt attended all meals and ate approx 70-100% of all meals.
--- NOTE | 2016-12-26 20:26 | NUR ---
Biodiesel Processing Technician/Counselor: S: "Sebastien tells me don't give up." O: Patient slept 9+ hours last night as per staff. She denies S/I and H/I. She denies auditory and visual hallucinations. Depression is 8/10 and anxiety is 7/10. A: Patient is unkept, disheveled, guarded, restricted affect, dysthymic, fearful, mumbled speech, limited insight, limited judgment. P: Follow the care plan, coordinate with out-patient providers.
[2016-12-26] MEDS: Divalproex (QD) 500 mg ER24 Tablet PO SCH (21:34)
[2016-12-26] MEDS: risperiDONE 2 mg Tablet PO SCH (21:35)
--- NOTE | 2016-12-27 04:49 | NUR ---
nursing, nights, 11-7 s/o- has appeared to sleep after 0 during q 15 minute assessments. a- no apparent distress. p- monitor behavior/emotional state, quality, times and amount of sleep, use and effect of medication. milly
[2016-12-27] MEDS: METRONIDAZOLE 500 MG PO SCH ×2 (08:30→20:30)
[2016-12-27 10:05] VITALS: BP 115/71; PULSE 92; RESP 16
--- NOTE | 2016-12-27 15:25 | PCM.PNPSY ---
Subjective Date of Service December 27, 2016 Subjective Upon observation earlier in the day patient was seen smiling and interacting with peers. She was resting at the time of our visit. She was able to answer questions appropriately. She states that the risperidone is at a good dose for now and that she is able to feel landry. Sleep: 7.5+ Appetite: good Suicidal and homicidal ideation: denies Auditory hallucinations: does not endorse Visual hallucinations: does not endorse Other Psychotic Symptoms: Does not want to hurt the thoughts inside her Anxiety: less than yesterday Depression: less than yesterday Current Medications Current Medications Olanzapine 5 mg BID PO Last administered on 12/27/16 09:09; Admin Dose 5 MG; Start 12/26/16 at 08:30 Risperidone 2 mg HS PO Last administered on 12/26/16 21:35; Admin Dose 2 MG; Start 12/25/16 at 21:00 Mental Status Exam Vital Signs Vital Signs Date Time Temp Pulse Resp B/P Pulse Ox O2 Delivery O2 Flow Rate FiO2 12/27/16 10:05 36.8 92 16 115/71 Appearance: Unkept, Disheveled Attitude: Guarded Behavior: Other (prolonged furrowed stare, only periodic) Affect: Restricted, Flat Mood: Dysthymic, Fearful Thought Process/Associations: Blocking Speech Production: Soft, Mumbled Speech Rate: Lags/Latency Speech Articulation: Slurred Thought Content: Other (difficult to assess) Danger to Self/Suicidal Ideati: None Danger to Others: None Delusions: Other (Endorses telepathy) Hallucinations: Auditory (Denies), Visual (Denies) Consciousness: Alert Orientation: Person, Place, Situation Memory: Untestable Estimate Intellectual Function: Average (to ), Below Average Basis for IQ estimate: Word use/vocabulary, Educational history (9th grade education) Attention/Concentration & Cogn: Impaired Insight: Limited Judgement: Limited Mental Health Plan Patient is a 31 yo female in a nearly catatonic state which makes her a very poor historian with history of schizophrenia and poly substance abuse transferred to the care center from [facility]. She was evaluated in [facility] ED on 12/17/16 for bizarre behavior and transferred to [facility] where a bed was available. Per nursing staff, patient's ex- is on staff which led to a "conflict of interest resulting in legal matters", they requested a transfer to our facility. She has likely been noncompliant with her medications leading to decompensation. Substance abuse is likely a contributing factor however patient is not specific about recent use and urine tox dip in the ED on 12/17/16 was negative. She appears disheveled, acting detached, and bizarre. She has intense feelings about God. She does feel her primary goal is to get to [place]. She presents suspicious and guarded with prolonged blank stare. Her thought process is guarded with occasional thought blocking. Today, the patient is sleeping well and remains tired. She is overall improving and seems to be more expressive and states she is "joyful." She has been telling staff that she is , lab history review shows a low Vitamin D level in 2009. If low, supplementation would likely contribute to improving her mood and affect. [place] AXIS I: Schizophrenia, chronic paranoid type Poly substance use disorder AXIS II: Deferred AXIS III: Bacterial vaginosis AXIS IV: Unknown AXIS V: GAF 25 Medications Metronidazole 500 mg twice a day Olanzapine 5 mg twice a day Clonazepam 0.5 mg twice daily Risperidone 2mg nightly Zolpidem 5 mg nightly as needed for insomnia Lorazepam 1 mg every 4 hours as needed for anxiety or agitation Treatments 1. The patient is admitted to the inpatient unit and will be provided a safe and secure environment. 2. The patient is denying current active suicidality and is not in need of a one-to-one at this time. 3. The patient is encouraged to participate with group and milieu activities. 4. The patient will be seen by the treatment team on a daily basis to assess symptoms, side effects and response to treatment. 5. DepakoteER 1000mg po nightly, blood level after 5 days (12/28/16) 6. Risperidone 2 mg at bedtime only, increase as tolerated to 4mg. 7. Olanzapine 5 mg BID. 8. Vitamin D level and beta HCG blood tests to be drawn today. 9. Anticipated length of stay is 14+ days. Attending Statement The patient was seen and examined together with Dr. Drake on 12/27/16 and I have added additional information to the note above. Holly Drake DO December 27, 2016 15:25 Quinn Rosen MD December 27, 2016 21:50
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
--- NOTE | 2016-12-27 18:23 | NUR ---
Observations [id number] Pt continues to limit communication between peers and staff. She was observed talking more at some points in the day, and others being barely communicative. Pt took a shower this morning, and spent much of the day in bed. She stated she didn't feel well, and that she was hot. Pt's vitals were fine along with temperature. Pt attended all meals, eating 100%. She was observed every 15 minutes of shift as directed.
--- NOTE | 2016-12-27 18:58 | NUR ---
Liquefied Natural Gas Operator/Counselor: S: Patient whispered "no" when asked if there has been any progress in the pitts of good and evil? O: Patient slept 7.5+ hours last night as per staff. She denies S/I and H/I. She denies auditory and visual hallucinations. Depression is "less" and anxiety is "some." A: Patient is unkept, disheveled, guarded, restricted affect, dysthymic, fearful, mumbled speech, limited insight, limited judgment. P: Follow the care plan, coordinate with out-patient providers.
[2016-12-27] MEDS: Divalproex (QD) 500 mg ER24 Tablet PO SCH (20:56)
[2016-12-27] MEDS: risperiDONE 2 mg Tablet PO SCH ×2 (20:56→21:00)
--- NOTE | 2016-12-27 22:27 | NUR ---
Nurses Note Medication Patient refused Risperdal 2mg HS stating that in the past it caused her to lactate.Her mood improved with full range of affect when her boyfriend visited earlier. Will maintain q 15min. checks for safety and support.
--- NOTE | 2016-12-28 05:17 | NUR ---
nursing, nights, 11-7 s/o- has appeared to sleep after 2200 during q 15 minute assessments. a- no apparent distress. p- monitor behavior/emotional state, quality, times and amount of sleep, use and effect of medication. milly
[2016-12-28] MEDS: METRONIDAZOLE 500 MG PO SCH ×2 (08:30→20:07)
[2016-12-28 08:38] LABS: BASOPHILS % (AUTO) 0.6 % (0-3); EOSINOPHILS % (AUTO) 6.3 % (0-5); MONOCYTES % (AUTO) 5.8 % (4-12); Mean Corpuscular Hemoglobin 32.4 pg (27.0-35.0); Mean Corpuscular Volume 99.8 fL (81-100); NEUTROPHILS % (AUTO) 51.3 % (40-74); Platelet Count 190 bil/L (150-400)
--- NOTE | 2016-12-28 13:43 | NUR ---
NURS Note Mood: Denies depression, anxiety. Affect: Flat Thought Process/Content: Pt stated "I feel a little depressed when people ask me if Im depressed. 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 Behavior: Pt often lurks outside medication room door. Limited interaction with staff or peers. Addendum: 12/28/16 at 1347 by BOWEN TELLO RN MARQUES Mays SI. Davon WEAVER, FAVIOLA.
--- NOTE | 2016-12-28 15:05 | NUR ---
Screen Tacker/Counselor: S/O: Patient slept 7+ hours last night as per staff. She denies S/I and H/I. She does not endorse auditory and visual hallucinations. A: Patient is unkept, disheveled, guarded, restricted affect, fearful, mumbled speech, limited insight, limited judgment. P: Follow the care plan, coordinate with out-patient providers.
--- NOTE | 2016-12-28 15:28 | PCM.PNPSY ---
Subjective Date of Service December 28, 2016 Subjective The patient reports her mood has improved, but she has been very sleepy. She was resting in her room at the time of our visit. She states that the pitts between good and evil has gotten better today compared to yesterday. She agrees with changing Zyprexa to once a day at bedtime to avoid daytime drowsiness. Sleep: Too sleepy Appetite: good Suicidal and homicidal ideation: She does have suicidal ideation sometimes, and in response to homicidal ideation, she says "only if they hurt my family." Auditory hallucinations: God and she have a back and forth conversation. "Prompting and urgent." Visual hallucinations: denies Other Psychotic Symptoms: mildly catatonic Anxiety: denies Depression: denies Current Medications Current Medications Cholecalciferol 5,000 unit DAILY PO Last administered on 12/28/16t 12:06; Admin Dose 5,000 UNIT; Start 12/28/16 at 09:45 Mental Status Exam Appearance: Unkept, Disheveled Attitude: Guarded Behavior: Other (prolonged furrowed stare, only periodic) Affect: Restricted, Flat Mood: Dysthymic, Fearful Thought Process/Associations: Blocking Speech Production: Soft, Mumbled Speech Rate: Lags/Latency Speech Articulation: Slurred Thought Content: Other (difficult to assess) Danger to Self/Suicidal Ideati: None Danger to Others: None Delusions: Other (Endorses telepathy) Hallucinations: Auditory (Denies), Visual (Denies) Consciousness: Alert Orientation: Person, Place, Situation Memory: Untestable Estimate Intellectual Function: Average (to ), Below Average Basis for IQ estimate: Word use/vocabulary, Educational history (9th grade education) Attention/Concentration & Cogn: Impaired Insight: Limited Judgement: Limited Result Diagram: 12/28/16 0830 12/28/16 0830 Mental Health Plan Patient is a 31 yo female in a nearly catatonic state which makes her a very poor historian with history of schizophrenia and poly substance abuse transferred to the care center from [facility]. She was evaluated in [facility] ED on 12/17/16 for bizarre behavior and transferred to [facility] where a bed was available. Per nursing staff, patient's ex- is on staff which led to a "conflict of interest resulting in legal matters", they requested a transfer to our facility. Given her low depakote level, she has likely been noncompliant with her medications leading to decompensation. Substance abuse is likely a contributing factor however patient is not specific about recent use and urine tox dip in the ED on 12/17/16 was negative. She appears disheveled, acting detached, and bizarre. She has intense feelings about God. She does feel her primary goal is to get to [place]. She presents suspicious and guarded with prolonged blank stare at times. Her thought process is guarded with occasional thought blocking. Patient is sleeping well and remains tired. She is overall improving and seems to be more expressive and joyful relatively. She has been telling staff that she is , beta HCG is negative, vitamin D low, valproic acid level is in low therapeutic range of 64. Patient reports that she lactates when on risperidone, we will check a baseline prolactin level. [place] AXIS I: Schizophrenia, chronic paranoid type Poly substance use disorder AXIS II: Deferred AXIS III: Bacterial vaginosis AXIS IV: Unknown AXIS V: GAF 25 Medications Metronidazole 500 mg twice a day Olanzapine 10 mg nightly Clonazepam 0.5 mg twice daily Risperidone 2mg nightly Zolpidem 5 mg nightly as needed for insomnia Lorazepam 1 mg every 4 hours as needed for anxiety or agitation Treatments 1. The patient is admitted to the inpatient unit and will be provided a safe and secure environment. 2. The patient is denying current active suicidality and is not in need of a one-to-one at this time. 3. The patient is encouraged to participate with group and milieu activities. 4. The patient will be seen by the treatment team on a daily basis to assess symptoms, side effects and response to treatment. 5. DepakoteER 1000mg po nightly, blood level after 5 days (12/28/16) 65 6. Risperidone 2 mg at bedtime only, increase as tolerated to 4mg. 7. Olanzapine changed to 10 mg HS in an effort to decrease daytime sleepiness. 8. Vitamin D low, supplement 5000 mg daily, beta HCG negative. 9. Anticipated length of stay is 14+ days. Attending Statement The patient was seen and examined together with Dr. Drake on 12/28/16 and I have added additional information to the note above. Holly Drake DO December 28, 2016 15:28 Quinn Rosen MD December 28, 2016 23:01
[2016-12-28 17:37] VITALS: BP 124/61; PULSE 70; RESP 16
--- NOTE | 2016-12-28 18:54 | NUR ---
[facility] Day Shift Pt affect and behavior unchanged from previous shifts. Pt maintained behavioral control throughout the shift. Pt affect appears flat, somewhat brighter when engaged with staff or peers. Pt remains somewhat latent, though less so than noted on previous shifts. Pt spends most of the shift sitting quietly in the dining room, participating in unit activities, or resting in her room. Pt is appropriate with staff and peers when active on the unit. Pt attended all meals and ate approx 70-100% of all meals.
[2016-12-28] MEDS: risperiDONE 2 mg Tablet PO SCH (20:10)
[2016-12-28] MEDS: Divalproex (QD) 500 mg ER24 Tablet PO SCH (20:11)
--- NOTE | 2016-12-28 22:49 | NUR ---
NURSING NOTE [id number] Mood: "okay" Affect: quiet, guarded Behavior: lingers in the hallways staring at peers and staff, occasionally in an intrusive manner w/other pts but is seemingly unaware of this, otherwise resting in bed Thought processes: gives delayed responses and mostly one-word answers w/a few sentences on occasion. Denies AH/VH/SI/HI. Denies depression or anxiety. Reported she was supposed to leave yesterday but this resume writer confirmed w/the doctor this was not accurate.
--- NOTE | 2016-12-29 05:00 | NUR ---
Nursing notes: mold shifter/sleep Patient appears to be sleeping on safety checks during the night. voices no complaints.
[2016-12-29] MEDS: METRONIDAZOLE 500 MG PO SCH ×2 (08:21→20:07)
--- NOTE | 2016-12-29 13:49 | NUR ---
Nursing Day Shift- S- "They don't have any reason to keep me here." O- Pt. had slept well per report. She was awake for breakfast, and eat well. She appears flat with an intense lost stare, and poor spacial boundaries. Pt. denied confusion, auditory, or visual hallucinations. She took medications without resistance. A- Pt. appears to have limited processing at this time and internal preoccupation. Limited insight. P- Cont. bHTP.
[2016-12-29 15:35] VITALS: BP 120/76; PULSE 90; RESP 16
--- NOTE | 2016-12-29 16:08 | PCM.PNPSY ---
Subjective Date of Service December 29, 2016 Subjective I spent 30 minutes both reviewing treatment plan with clinical team, interviewing the patient and providing supportive/educational psychotherapy. I spent more than 50% of the time counseling the patient. I reviewed the treatment plan with the patient and discussed options available including the potential risks, benefits and side effects. [place] reports a mild improvement in thought organization and mood stability. Staff reports that she has been more active and is participating in one-to-one unit and group activities. She slept 8 hours. She remained quite psychomotor retarded but since I last saw her 5 days ago she has had a marked improvement in presenting symptoms. She denies medication side effects. Patient was able to identify her medications and what they were used to treat. Current Medications Current Medications Cholecalciferol 5,000 unit DAILY PO Last administered on 12/29/16t 08:20; Admin Dose 5,000 UNIT; Start 12/28/16 at 09:45 Mental Status Exam Vital Signs Vital Signs Date Time Temp Pulse Resp B/P Pulse Ox O2 Delivery O2 Flow Rate FiO2 12/29/16 15:35 36.4 90 16 120/76 Appearance: Unkept, Disheveled Attitude: Guarded Behavior: Other (prolonged furrowed stare, only periodic) Affect: Restricted, Flat Mood: Dysthymic, Fearful Thought Process/Associations: Blocking Speech Production: Soft, Mumbled Speech Rate: Lags/Latency Speech Articulation: Slurred Thought Content: Other (difficult to assess) Danger to Self/Suicidal Ideati: None Danger to Others: None Delusions: Other (Endorses telepathy) Hallucinations: Auditory (Denies), Visual (Denies) Consciousness: Alert Orientation: Person, Place, Situation Memory: Untestable Estimate Intellectual Function: Average (to ), Below Average Basis for IQ estimate: Word use/vocabulary, Educational history (9th grade education) Attention/Concentration & Cogn: Impaired Insight: Limited Judgement: Limited Result Diagram: 12/28/16 0830 12/28/16 0830 Mental Health Plan Patient is a 31 yo female in a nearly catatonic state and a very poor historian. She has a history of schizophrenia and poly substance abuse and was transferred to the care center from [facility] due to her ex-spouse being on staff there. She was evaluated in [facility] ED on 12/17/16 for bizarre behavior and transferred to [facility] where a bed was available. Per nursing staff, patient 's ex- is on staff which led to a "conflict of interest resulting in legal matters", they requested a transfer to our facility. She has likely been noncompliant with her medications leading to decompensation. Substance abuse is likely a contributing factor however patient is not specific about recent use and urine tox dip in the ED on 12/17/16 was negative. She appears disheveled, acting detached, and bizarre. She has intense feelings about God in that she wants Him to be respected and when asked about family history she states that her mother has diabetes type II or she used to if God has cured it already. She does not seem to have an extraordinary relationship with God as they have no way of communicating with each other with the exception of prayer. She does feel her primary goal is to get to [place]. She presents suspicious and guarded with prolonged blank stare. Her Thought process is guarded with occasional thought blocking. Patient is now sleeping well but remains tired. She is overall improving and seems to be more expressive and joyful relatively. She has been telling staff that she is , beta HCG is negative, vitamin D low, valproic acid level is in low therapeutic range of 64. Patient reports that she lactates when on risperidone, we will check a baseline prolactin level. [place] AXIS I: Schizophrenia, chronic paranoid type Poly substance use disorder AXIS II: Deferred AXIS III: Bacterial vaginosis AXIS IV: Unknown AXIS V: GAF 30 Medications Metronidazole 500 mg twice a day Olanzapine 10 mg nightly Clonazepam 0.5 mg twice daily Risperidone 2mg nightly Zolpidem 5 mg nightly as needed for insomnia Lorazepam 1 mg every 4 hours as needed for anxiety or agitation Treatments 1. The patient is admitted to the inpatient unit and will be provided a safe and secure environment. 2. The patient is denying current active suicidality and is not in need of a one-to-one at this time. 3. The patient is encouraged to participate with group and milieu activities. 4. The patient will be seen by the treatment team on a daily basis to assess symptoms, side effects and response to treatment. 5. DepakoteER 1000mg po nightly, blood level after 5 days (12/28/16) 65 6. Risperidone 2 mg at bedtime only, increase as tolerated to 4mg. 7. Olanzapine changed to 10 mg HS in an effort to decrease daytime sleepiness. 8. Vitamin D low, supplement 5000 mg daily, beta HCG negative. 9. Anticipated length of stay is 14+ days. Clayton Cash MD December 29, 2016 16:08
[2016-12-29] MEDS: risperiDONE 2 mg Tablet PO SCH (20:18)
[2016-12-29] MEDS: Divalproex (QD) 500 mg ER24 Tablet PO SCH (20:18)
--- NOTE | 2016-12-29 21:27 | NUR ---
OBSERVATIONS Pt was pleasant and cooperative with staff. Pt became progressively more social and verbal throughout the shift. Pt showered and did laundry. Pt spent much of the day on the unit but does not speak much until engaged. Pt ate well at meals and snack times. Maintained Q15 checks for safety as directed.
--- NOTE | 2016-12-29 22:55 | NUR ---
NURSING NOTE [id number] Mood: *pt unable to give mood statement* Affect: suspicious, constricted Behavior: isolative, visible on fringes of milieu. Approached this information writer twice this shift to notify me that she had upper abdominal discomfort but that "it's gone now". When asked if she had indigestion the pt. denied and instead said "baby" (pt. continues to hold delusion she is ). Med compliant. Thought processes: pt. has been very guarded this evening and needs much prompting to answer questions w/one or two words. Denies all psychiatric issues and has no insight into why she is here.
--- NOTE | 2016-12-30 06:38 | NUR ---
Sleep 11p-7a Adequate sleep through the night with no noted distress or awakening per protocol. Total sleep over 8 hours.
[2016-12-30] MEDS: METRONIDAZOLE 500 MG PO SCH ×2 (08:05→20:18)
--- NOTE | 2016-12-30 10:38 | NUR ---
Day shift note S: "I don't know what's real and what's not real." "I want to kill my mom, I've almost killed her in the past, but she's already ." "I was so scared I ran away to my mind. I'm confused and lost." "Someone needs to help me stop writing because I'll write myself out of existence, my family, my friends. I'll write myself into a black hole." "There are 5-6 of me, 12 all together." O: Anxious; increasingly anxious the more she talks. Having trouble sleeping. Ate breakfast, interacted with other patients at times. A: Pt. seen pacing, anxious, many thoughts about her past traumatic experiences emotionally with her mother. Asked many times for help, help to stop writing her story. P: Pt. given ativan 1 mg po this am. Encouraged pt. to talk about feelings. Reassuring pt. that we are here to help and the medications are here to help as well. Continuing scheduled medications. Addendum: 12/30/16 at 1049 by LUKAS BA RN NOTE WRITTEN ON WRONG PATIENT PLEASE DISREGARD ABOVE NOTE.
--- NOTE | 2016-12-30 10:50 | NUR ---
Day shift note: Disregard other day shift note timed at 1038 S: "At first thought, I'm 9/10 anxious, anxious to get out of here." "I took ambien the night before last and slept, I was afraid to take it at first but the bible says He will protect you from poison." "The [place] landed near me and talked to me, told me when I would deliver" O: Pt. first thing this am passive, withdrawn, giving one word answers with flat affect and staring. Later this morning pleasant, easy conversation. Focus is on God's plan for her, in his control. A: Pt. seems positive and hopeful; smiling and good eye contact. P: Continuing scheduled medications; encouraging pt. to talk about feelings and concerns.
--- NOTE | 2016-12-30 15:31 | PCM.PNPSY ---
Subjective Date of Service December 30, 2016 Subjective I spent 30 minutes both reviewing treatment plan with clinical team, interviewing the patient and providing supportive/educational psychotherapy. I spent more than 50% of the time counseling the patient. I reviewed the treatment plan with the patient and discussed options available including the potential risks, benefits and side effects. [place] reports a continued mild improvement in thought organization and mood stability. Staff reports that she has been more active and is participating in one-to-one unit and group activities. She slept 8 hours. She remains quite psychomotor retarded but continues to show improvement. She denies medication side effects. Patient was able to identify her medications and what they were used to treat. Current Medications Current Medications Olanzapine 10 mg HS PO Last administered on 12/29/16t 20:17; Admin Dose 10 MG; Start 12/29/16 at 21:00 Mental Status Exam Appearance: Unkept, Disheveled Attitude: Guarded Behavior: Other (prolonged furrowed stare, only periodic) Affect: Restricted, Flat Mood: Dysthymic, Fearful Thought Process/Associations: Blocking Speech Production: Soft, Mumbled Speech Rate: Lags/Latency Speech Articulation: Slurred Thought Content: Other (difficult to assess) Danger to Self/Suicidal Ideati: None Danger to Others: None Delusions: Other (Endorses telepathy) Hallucinations: Auditory (Denies), Visual (Denies) Consciousness: Alert Orientation: Person, Place, Situation Memory: Untestable Estimate Intellectual Function: Average (to ), Below Average Basis for IQ estimate: Word use/vocabulary, Educational history (9th grade education) Attention/Concentration & Cogn: Impaired Insight: Limited Judgement: Limited Result Diagram: 12/28/16 0830 12/28/16 0830 Mental Health Plan Patient is a 31 yo female in a nearly catatonic state and a very poor historian. She has a history of schizophrenia and poly substance abuse and was transferred to the care center from [facility] due to her ex-spouse being on staff there. She was evaluated in [facility] ED on 12/17/16 for bizarre behavior and transferred to [facility] where a bed was available. Per nursing staff, patient 's ex- is on staff which led to a "conflict of interest resulting in legal matters", they requested a transfer to our facility. She has likely been noncompliant with her medications leading to decompensation. Substance abuse is likely a contributing factor however patient is not specific about recent use and urine tox dip in the ED on 12/17/16 was negative. She appears disheveled, acting detached, and bizarre. She has intense feelings about God in that she wants Him to be respected and when asked about family history she states that her mother has diabetes type II or she used to if God has cured it already. She does not seem to have an extraordinary relationship with God as they have no way of communicating with each other with the exception of prayer. She does feel her primary goal is to get to [place]. She presents suspicious and guarded with prolonged blank stare. Her Thought process is guarded with occasional thought blocking. Patient is now sleeping well but remains tired. She is overall improving and seems to be more expressive and joyful relatively. She has been telling staff that she is , beta HCG is negative, vitamin D low, valproic acid level is in low therapeutic range of 64. Patient reports that she lactates when on risperidone, baseline prolactin level level returned at 34. [place] AXIS I: Schizophrenia, chronic paranoid type Poly substance use disorder AXIS II: Deferred AXIS III: Bacterial vaginosis AXIS IV: Unknown AXIS V: GAF 30 Medications Metronidazole 500 mg twice a day Olanzapine 10 mg nightly Clonazepam 0.5 mg twice daily Risperidone 2mg nightly Zolpidem 5 mg nightly as needed for insomnia Lorazepam 1 mg every 4 hours as needed for anxiety or agitation Treatments 1. The patient is admitted to the inpatient unit and will be provided a safe and secure environment. 2. The patient is denying current active suicidality and is not in need of a one-to-one at this time. 3. The patient is encouraged to participate with group and milieu activities. 4. The patient will be seen by the treatment team on a daily basis to assess symptoms, side effects and response to treatment. 5. DepakoteER 1000mg po nightly, blood level after 5 days (12/28/16) 65 6. Risperidone 2 mg at bedtime only, increase as tolerated to 4mg. 7. Olanzapine changed to 10 mg HS in an effort to decrease daytime sleepiness. 8. Vitamin D low, supplement 5000 mg daily, beta HCG negative. 9. Anticipated length of stay is 14+ days. Clayton Cash MD December 30, 2016 15:31
--- NOTE | 2016-12-30 16:20 | NUR ---
MHA Note D- Patient showered this morning of her own volition and appears well groomed. She ate all of her meals. She attended all structured groups and social activities of three. A- Patient started the shift standing in the box and staring at staff. Once asked if she needed anything patient was able to articulate her needs. She requested a shower. Patient has been social with peers and staff when engaged. She does not endorse suicidal or homicidal ideation although her conversations are earlene no matter the content so her mental state is difficult to convey. P- Continue current treatment plan.
[2016-12-30 18:16] VITALS: BP 123/73; PULSE 89; RESP 12
[2016-12-30] MEDS: Divalproex (QD) 500 mg ER24 Tablet PO SCH (20:16)
[2016-12-30] MEDS: risperiDONE 2 mg Tablet PO SCH (20:18)
--- NOTE | 2016-12-31 06:58 | NUR ---
Nursing Noc Pt visible on the unit and appropriately attending to her ADLs. Pt presents with intense gaze and delayed response. She attended evening wrap up group and took scheduled medication without difficulty. Good sleep through the night with no noted distress or awakening per protocol checks. Total sleep over 8 hours.
[2016-12-31] MEDS: METRONIDAZOLE 500 MG PO SCH ×2 (08:30→20:30)
[2016-12-31 11:29] VITALS: BP 117/60; PULSE 75; RESP 15
[2016-12-31] MEDS: Alum-Mag Hydrox-Simeth 30 mL Suspension PO PRN (12:56)
--- NOTE | 2016-12-31 13:46 | NUR ---
Obs Dayshift Pt is slightly more tired and quiet today. Pt stated that she feels a little more slow today but is trying. Pt is attending groups and did go outside w/ peers for a short time. Pt is polite, calm, guarded, little engaging w/ peers. Pt states that she would just like to get back home soon and get back to her apartment. Poor ADL's, Good meals
--- NOTE | 2016-12-31 14:34 | PCM.PNPSY ---
Subjective Date of Service December 31, 2016 Subjective I spent 30 minutes both reviewing treatment plan with clinical team, interviewing the patient and providing supportive/educational psychotherapy. I spent more than 50% of the time counseling the patient. I reviewed the treatment plan with the patient and discussed options available including the potential risks, benefits and side effects. [place] reports a continued mild improvement in thought organization and mood stability. Staff reports that she has been more isolative and sedated but is attempting to participate more in one-to-one unit and group activities. She slept 8 hours. She remains quite psychomotor retarded but continues to show improvement. She denies medication side effects. Patient was able to identify her medications and what they were used to treat. Current Medications Current Medications Olanzapine 10 mg HS PO Last administered on 12/30/16t 20:16; Admin Dose 10 MG; Start 12/29/16 at 21:00 Mental Status Exam Vital Signs Vital Signs Date Time Temp Pulse Resp B/P Pulse Ox O2 Delivery O2 Flow Rate FiO2 12/31/16 11:29 36.7 75 15 117/60 Appearance: Unkept, Disheveled Attitude: Guarded Behavior: Other (prolonged furrowed stare, only periodic) Affect: Restricted, Flat Mood: Dysthymic, Fearful Thought Process/Associations: Blocking Speech Production: Soft, Mumbled Speech Rate: Lags/Latency Speech Articulation: Slurred Thought Content: Other (difficult to assess) Danger to Self/Suicidal Ideati: None Danger to Others: None Delusions: Other (Endorses telepathy) Hallucinations: Auditory (Denies), Visual (Denies) Consciousness: Alert Orientation: Person, Place, Situation Memory: Untestable Estimate Intellectual Function: Average (to ), Below Average Basis for IQ estimate: Word use/vocabulary, Educational history (9th grade education) Attention/Concentration & Cogn: Impaired Insight: Limited Judgement: Limited Result Diagram: 12/28/16 0830 12/28/16 0830 Mental Health Plan Patient is a 31 yo female in a nearly catatonic state and a very poor historian. She has a history of schizophrenia and poly substance abuse and was transferred to the care center from [facility] due to her ex-spouse being on staff there. She was evaluated in [facility] ED on 12/17/16 for bizarre behavior and transferred to [facility] where a bed was available. Per nursing staff, patient 's ex- is on staff which led to a "conflict of interest resulting in legal matters", they requested a transfer to our facility. She has likely been noncompliant with her medications leading to decompensation. Substance abuse is likely a contributing factor however patient is not specific about recent use and urine tox dip in the ED on 12/17/16 was negative. She appears disheveled, acting detached, and bizarre. She has intense feelings about God in that she wants Him to be respected and when asked about family history she states that her mother has diabetes type II or she used to if God has cured it already. She does not seem to have an extraordinary relationship with God as they have no way of communicating with each other with the exception of prayer. She does feel her primary goal is to get to [place]. She presents suspicious and guarded with prolonged blank stare. Her Thought process is guarded with occasional thought blocking. Patient is now sleeping well but remains tired. She is overall improving and seems to be more expressive and joyful relatively. She has been telling staff that she is , beta HCG is negative, vitamin D low, valproic acid level is in low therapeutic range of 64. Patient reports that she lactates when on risperidone, baseline prolactin level level returned at 34. [place] AXIS I: Schizophrenia, chronic paranoid type Poly substance use disorder AXIS II: Deferred AXIS III: Bacterial vaginosis AXIS IV: Unknown AXIS V: GAF 30 Medications Metronidazole 500 mg twice a day Olanzapine 10 mg nightly Clonazepam 0.5 mg twice daily Risperidone 2mg nightly Zolpidem 5 mg nightly as needed for insomnia Lorazepam 1 mg every 4 hours as needed for anxiety or agitation Treatments 1. The patient is admitted to the inpatient unit and will be provided a safe and secure environment. 2. The patient is denying current active suicidality and is not in need of a one-to-one at this time. 3. The patient is encouraged to participate with group and milieu activities. 4. The patient will be seen by the treatment team on a daily basis to assess symptoms, side effects and response to treatment. 5. DepakoteER 1000mg po nightly, blood level after 5 days (12/28/16) 65 6. Risperidone 2 mg at bedtime only, increase as tolerated to 4mg. 7. Olanzapine changed to 10 mg HS in an effort to decrease daytime sleepiness. 8. Vitamin D low, supplement 5000 mg daily, beta HCG negative. 9. Anticipated length of stay is 14+ days. Claytno Cash MD December 31, 2016 14:34
--- NOTE | 2016-12-31 17:38 | NUR ---
Nursing: Day shift: S: I need a vitamin and an ultrasound. What is that (slide board) for? My mother was a caregiver... O: [place] was restricted in affect, having delayed response, very quiet voice, and staring eye appearance as she made a request for Tyelnol for ankle pain at 0840. PRN medication was effective. Later in the day, she approached policy writer, complimented her on her attire, asked a question about equipment she saw. In the afternoon, her speech was spontaneous, she initiated conversation, and had good eye contact. Showered self. At 1800 as policy writer talked with Carlos she spoke about a " person who put her name on my lease... I'll have to go to the scientology about it...Sebastien and jon made me feel better...I want to go to [place]." Admits that when she becomes upset, she uses the very quiet voice. Denies depression, anxiety and suicidal ideation. A: Varies in presentation. Remains with disorganized thinking. P: Continue to assess for effectiveness of medications. Addendum: 12/31/16 at 1811 by JOSE ENRIQUE MCKEON RN Amended: Links added.
[2016-12-31] MEDS: risperiDONE 2 mg Tablet PO SCH (21:13)
[2016-12-31] MEDS: Divalproex (QD) 500 mg ER24 Tablet PO SCH (21:14)
--- NOTE | 2017-01-01 02:37 | NUR ---
Nursing Noc Pt presents as well groomed, interactive with peers and participatory in evening activities. Took scheduled medication without difficulty and retired to bed. Noted to be asleep at 2200 with no noted distress or awakening per protocol checks. Addendum: 01/01/17 at 0546 by HANNAH MALDONADO RN Adequate sleep through the night with no noted distress or awakening per protocol checks. Total sleep over 7.5 hours.
--- NOTE | 2017-01-01 04:45 | NUR ---
Observations 1900 - 0700 Pt was sitting at table by herself at the start of the shift. Pt was observed to be flat, minimally social, guarded, preoccupied and disheveled. Pt was pleasant, polite and cooperative when approached. Pt responds with a head nod and/or mumbling and is hard to understand. Pt maintained behavior throughout the shift. Pt speech and eye contact was poor. Pt attended wrap up group. Pt stated her positive for the day was "moving forward, talking to peers" Pt rated her mood for the day 02/18, with 10 being the best. Pt first appeared asleep at 2215 and has slept well through the night. Pt was observed every 15 minutes through the night as ordered. Pt is currently asleep with respirations apparent.
[2017-01-01] MEDS: METRONIDAZOLE 500 MG PO SCH ×2 (08:21→20:19)
--- NOTE | 2017-01-01 10:39 | NUR ---
Nursing: Day shift: 0700 to 1500. S/O: Virginia has been out in the open unit all morning. She answers without delay and she has responsive facial expression, smiling or otherwise as she interacts with peers. No requests for PRN meds or complaints. Dressed appropriately and neatly. P: Continue to assess. Addendum: 01/01/17 at 1053 by JOSE ENRIQUE MCKEON RN Amended: Links added. Addendum: 01/01/17 at 1432 by JOSE ENRIQUE MCKEON RN Nursing: [place] has been participating in group activities. At 1300, she rated depression at 5/10 'because I miss my family at home". Stated she feels ready to be discharged. Fewer of the blank, staring, [id number] times but these are still present. Denies anxiety and suicidal ideation.
[2017-01-01 12:55] VITALS: BP 124/79; PULSE 97; RESP 17
--- NOTE | 2017-01-01 14:21 | PCM.PNPSY ---
Subjective Date of Service January 01, 2017 Subjective I spent 30 minutes both reviewing treatment plan with clinical team, interviewing the patient and providing supportive/educational psychotherapy. I spent more than 50% of the time counseling the patient. I reviewed the treatment plan with the patient and discussed options available including the potential risks, benefits and side effects. [place] reports a continued mild improvement in thought organization and mood stability. Staff reports that she has been isolative but is attempting to participate more in one-to-one unit and group activities. She slept 8 hours. She remains psychomotor retarded but continues to show slow but daily improvement. She denies medication side effects. Patient was able to identify her medications and what they were used to treat. Mental Status Exam Vital Signs Vital Signs Date Time Temp Pulse Resp B/P Pulse Ox O2 Delivery O2 Flow Rate FiO2 01/01/17 12:55 36.6 97 17 124/79 Appearance: Unkept, Disheveled Attitude: Guarded Behavior: Other (prolonged furrowed stare, only periodic) Affect: Restricted, Flat Mood: Dysthymic, Fearful Thought Process/Associations: Blocking Speech Production: Soft, Mumbled Speech Rate: Lags/Latency Thought Content: Other (difficult to assess) Danger to Self/Suicidal Ideati: None Danger to Others: None Delusions: Other (Endorses telepathy) Hallucinations: Auditory (Denies) Consciousness: Alert Orientation: Person, Place, Situation Memory: Untestable Estimate Intellectual Function: Average (to ), Below Average Basis for IQ estimate: Word use/vocabulary, Educational history (9th grade education) Attention/Concentration & Cogn: Impaired Insight: Limited Judgement: Limited Result Diagram: 12/28/16 0830 12/28/16 0830 Mental Health Plan Patient is a 31 yo female in a nearly catatonic state and a very poor historian. She has a history of schizophrenia and poly substance abuse and was transferred to the care center from [facility] due to her ex-spouse being on staff there. She was evaluated in [facility] ED on 12/17/16 for bizarre behavior and transferred to [facility] where a bed was available. Per nursing staff, patient 's ex- is on staff which led to a "conflict of interest resulting in legal matters", they requested a transfer to our facility. She has likely been noncompliant with her medications leading to decompensation. Substance abuse is likely a contributing factor however patient is not specific about recent use and urine tox dip in the ED on 12/17/16 was negative. On admission She appeared disheveled, acting detached, and bizarre. She has intense feelings about God in that she wants Him to be respected and when asked about family history she states that her mother has diabetes type II or she used to if God has cured it already. She presented as suspicious and guarded with prolonged blank stare. Her Thought process remains guarded with occasional thought blocking. Patient is now sleeping well but remains tired. She is overall improving and and at times can be expressive and joyful relatively. [place] AXIS I: Schizophrenia, chronic paranoid type Poly substance use disorder AXIS II: Deferred AXIS III: Bacterial vaginosis AXIS IV: Unknown AXIS V: GAF 30 Medications Metronidazole 500 mg twice a day Olanzapine 10 mg nightly Clonazepam 0.5 mg twice daily Risperidone 2mg nightly Zolpidem 5 mg nightly as needed for insomnia Lorazepam 1 mg every 4 hours as needed for anxiety or agitation Treatments 1. The patient is admitted to the inpatient unit and will be provided a safe and secure environment. 2. The patient is denying current active suicidality and is not in need of a one-to-one at this time. 3. The patient is encouraged to participate with group and milieu activities. 4. The patient will be seen by the treatment team on a daily basis to assess symptoms, side effects and response to treatment. 5. DepakoteER 1000mg po nightly, blood level after 5 days (12/28/16) 65 6. Risperidone 2 mg at bedtime 7. Olanzapine changed to 10 mg HS in an effort to decrease daytime sleepiness. 8. Vitamin D low, supplement 5000 mg daily, beta HCG negative. 9. Anticipated length of stay is 14+ days. Clayton Cash MD January 01, 2017 14:21
[2017-01-01] MEDS: risperiDONE 2 mg Tablet PO SCH (20:19)
[2017-01-01] MEDS: Divalproex (QD) 500 mg ER24 Tablet PO SCH (20:19)
--- NOTE | 2017-01-01 21:00 | NUR ---
Obs Dayshift Pt is quiet, childlike, reserved, guarded, soft spoken, tearful at times, timid. Pt is often standing in the box in her door way watching peers and staff or staring at the wall. Pt is attending groups, but little engaging w/ peers. Pt is polite, states that she would just like to get back to her apartment. Pt appears confused at times, doesn't always respond to questions or takes a very long time to respond. Needing encouragement often from staff and some peers. Pt has ok ADL's, Good meals
--- NOTE | 2017-01-01 22:56 | NUR ---
NURSING NOTE [id number] Mood: "good now that my neighbor is here" Affect: constricted Behavior: visible off and on in common areas, social w/a newly admitted peer, GINETTE, who is apparently her neighbor from home. She showered. Continues to linger off and on near NS staring suspiciously at staff. Speaking in low, whisper tone and offers few-worded responses. Med compliant. Thought processes: pt. denies having any reason for being here, denies AH/VH/SI/HI. Prolonged stare at this typewriters functional tester when asked about anxiety and depression and declined to answer.
--- NOTE | 2017-01-02 06:22 | NUR ---
Sleep 11p-7a Adequate sleep through the night with no noted distress or awakening per protocol checks. Total sleep over 9 hours.
[2017-01-02] MEDS: METRONIDAZOLE 500 MG PO SCH ×2 (08:30→20:30)
--- NOTE | 2017-01-02 14:38 | NUR ---
Obs Dayshift Pt is participating in some groups, continues to be very quiet, timid, and standing in the milieu staring at nothing. Pt states her daily goals to DC and go back to her apartment each day, little insight. Pt is neighbors w/ a new peer and follows her around and allows the peer to order her around. Pt appears sad, depressed, and confused often times. Pt has good ADL's, Good meals
--- NOTE | 2017-01-02 14:43 | PCM.PNPSY ---
Subjective Date of Service January 02, 2017 Subjective I spent 30 minutes both reviewing treatment plan with clinical team, interviewing the patient and providing supportive/educational psychotherapy. I spent more than 50% of the time counseling the patient. I reviewed the treatment plan with the patient and discussed options available including the potential risks, benefits and side effects. [place] reports a continued mild improvement in thought organization and mood stability. Staff reports that she has been isolative but is attempting to participate more in one-to-one unit and group activities. She slept 9 hours. She remains psychomotor retarded but continues to show slow but daily improvement. She denies medication side effects. Mental Status Exam Appearance: Unkept, Disheveled Attitude: Guarded Behavior: Other (prolonged furrowed stare, only periodic) Affect: Restricted, Flat Mood: Dysthymic, Fearful Thought Process/Associations: Blocking Speech Production: Soft, Mumbled Speech Rate: Lags/Latency Thought Content: Other (difficult to assess) Danger to Self/Suicidal Ideati: None Danger to Others: None Delusions: Other (Endorses telepathy) Hallucinations: Auditory (Denies) Consciousness: Alert Orientation: Person, Place, Situation Memory: Untestable Estimate Intellectual Function: Average (to ), Below Average Basis for IQ estimate: Word use/vocabulary, Educational history (9th grade education) Attention/Concentration & Cogn: Impaired Insight: Limited Judgement: Limited Result Diagram: 12/28/1630 12/28/16 0830 Mental Health Plan Patient is a 31 yo female in a nearly catatonic state and a very poor historian. She has a history of schizophrenia and poly substance abuse and was transferred to the care center from [facility] due to her ex-spouse being on staff there. She was evaluated in [facility] ED on 12/17/16 for bizarre behavior and transferred to [facility] where a bed was available. Per nursing staff, patient 's ex- is on staff which led to a "conflict of interest resulting in legal matters", they requested a transfer to our facility. She has likely been noncompliant with her medications leading to decompensation. Substance abuse is likely a contributing factor however patient is not specific about recent use and urine tox dip in the ED on 12/17/16 was negative. On admission She appeared disheveled, acting detached, and bizarre. She has intense feelings about God in that she wants Him to be respected and when asked about family history she states that her mother has diabetes type II or she used to if God has cured it already. She presented as suspicious and guarded with prolonged blank stare. Her Thought process remains guarded with occasional thought blocking. Patient is now sleeping well but remains tired. She is overall improving and and at times can be expressive and joyful relatively. [place] AXIS I: Schizophrenia, chronic paranoid type Poly substance use disorder AXIS II: Deferred AXIS III: Bacterial vaginosis AXIS IV: Unknown AXIS V: GAF 35 Medications Metronidazole 500 mg twice a day Olanzapine 10 mg nightly Clonazepam 0.5 mg twice daily Risperidone 2mg nightly Zolpidem 5 mg nightly as needed for insomnia Lorazepam 1 mg every 4 hours as needed for anxiety or agitation Treatments 1. The patient is admitted to the inpatient unit and will be provided a safe and secure environment. 2. The patient is denying current active suicidality and is not in need of a one-to-one at this time. 3. The patient is encouraged to participate with group and milieu activities. 4. The patient will be seen by the treatment team on a daily basis to assess symptoms, side effects and response to treatment. 5. DepakoteER 1000mg po nightly, blood level after 5 days (12/28/16) 65 6. Risperidone 2 mg at bedtime 7. Olanzapine changed to 10 mg HS in an effort to decrease daytime sleepiness. 8. Vitamin D low, supplement 5000 mg daily, beta HCG negative. 9. Anticipated length of stay is 14+ days. Clayton Cash MD January 02, 2017 14:43
[2017-01-02 18:24] VITALS: BP 112/74; PULSE 82
--- NOTE | 2017-01-02 18:41 | NUR ---
[id number]. nurs. S: "I am ready to go home and take care of everything that needs to be done... yes I was (having chest pain) but it's gone now." O: Pt out on unit, spending some time standing and staring and looking confused or 'stuck' but somewhat participatory and interacting by listening to some peers. Pt visiting with S.O. who reported pt's chest pain while pt sitting comfortably and looking at visitor in apparent comfort, may have taken or experience of peer on unit and still believes herself to be . P:CNCP
[2017-01-02] MEDS: Divalproex (QD) 500 mg ER24 Tablet PO SCH (21:13)
[2017-01-02] MEDS: risperiDONE 2 mg Tablet PO SCH (21:14)
[2017-01-03] MEDS: LORazepam 1 mg Tablet PO PRN (06:02)
[2017-01-03 07:34] VITALS: BP 150/89; PULSE 83; RESP 18
[2017-01-03] MEDS: METRONIDAZOLE 500 MG PO SCH ×2 (08:30→20:06)
--- NOTE | 2017-01-03 13:01 | PCM.PNPSY ---
Subjective Date of Service January 03, 2017 Subjective I spent 30 minutes both reviewing treatment plan with clinical team, interviewing the patient and providing supportive/educational psychotherapy. I spent more than 50% of the time counseling the patient. I reviewed the treatment plan with the patient and discussed options available including the potential risks, benefits and side effects. [place] reports a continued mild improvement in thought organization and mood stability. Staff reports that she has been isolative but is attempting to participate more in one-to-one unit and group activities. She slept 7 hours. She remains psychomotor retarded but continues to show slow but daily improvement. She continues to be delusional about being . She feels that things are better and that now she has the alondra of God protecting her and is requesting discharge. She denies medication side effects. Mental Status Exam Vital Signs Vital Signs Date Time Temp Pulse Resp B/P Pulse Ox O2 Delivery O2 Flow Rate FiO2 01/03/17 07:34 36.5 83 18 150/89 Appearance: Unkept, Disheveled Attitude: Guarded Behavior: Other (prolonged furrowed stare, only periodic) Affect: Restricted, Flat Mood: Expansive, Dysthymic Thought Process/Associations: Blocking Speech Production: Soft, Mumbled Speech Rate: Lags/Latency Thought Content: Other (difficult to assess) Danger to Self/Suicidal Ideati: None Danger to Others: None Delusions: Other (Endorses telepathy) Hallucinations: Auditory (Denies) Consciousness: Alert Orientation: Person, Place, Situation Memory: Untestable Estimate Intellectual Function: Average (to ), Below Average Basis for IQ estimate: Word use/vocabulary, Educational history (9th grade education) Attention/Concentration & Cogn: Impaired Insight: Limited Judgement: Limited Result Diagram: 12/28/16 0830 12/28/16 0830 Mental Health Plan Patient is a 31 yo female in a nearly catatonic state and a very poor historian. She has a history of schizophrenia and poly substance abuse and was transferred to the care center from [facility] due to her ex-spouse being on staff there. She was evaluated in [facility] ED on 12/17/16 for bizarre behavior and transferred to [facility] where a bed was available. Per nursing staff, patient 's ex- is on staff which led to a "conflict of interest resulting in legal matters", they requested a transfer to our facility. She has likely been noncompliant with her medications leading to decompensation. Substance abuse is likely a contributing factor however patient is not specific about recent use and urine tox dip in the ED on 12/17/16 was negative. On admission She appeared disheveled, acting detached, and bizarre. She has intense feelings about God in that she wants Him to be respected and when asked about family history she states that her mother has diabetes type II or she used to if God has cured it already. She presented as suspicious and guarded with prolonged blank stare. Her Thought process remains guarded with occasional thought blocking. Patient is now sleeping well but remains tired. She is overall improving and and at times can be expressive and joyful relatively. [place] AXIS I: Schizophrenia, chronic paranoid type Poly substance use disorder AXIS II: Deferred AXIS III: Bacterial vaginosis AXIS IV: Unknown AXIS V: GAF 35 Medications Metronidazole 500 mg twice a day Olanzapine 10 mg nightly Clonazepam 0.5 mg twice daily Risperidone 2mg nightly Zolpidem 5 mg nightly as needed for insomnia Lorazepam 1 mg every 4 hours as needed for anxiety or agitation Treatments 1. The patient is admitted to the inpatient unit and will be provided a safe and secure environment. 2. The patient is denying current active suicidality and is not in need of a one-to-one at this time. 3. The patient is encouraged to participate with group and milieu activities. 4. The patient will be seen by the treatment team on a daily basis to assess symptoms, side effects and response to treatment. 5. DepakoteER 1000mg po nightly, blood level after 5 days (12/28/16) 65 6. Risperidone 2 mg at bedtime 7. Olanzapine changed to 10 mg HS in an effort to decrease daytime sleepiness. 8. Vitamin D low, supplement 5000 mg daily, beta HCG negative. 9. Anticipated length of stay is 14+ days. Clayton Cash MD January 03, 2017 13:01
--- NOTE | 2017-01-03 18:36 | NUR ---
[id number] nurs. S: " I feel like a gerbil here sometimes, all the people around.. 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 O: Pt stating that she is ready to be home and away from crowded busy milieu laughing with her description of self as feeling like a gerbil here. Pt reports is not overwhelmed by approaches and conversation of peer who lives in same apartment building. Pt with brighter affect, less latency, more relaxed countenance. Out on unit and participating in grps. No staring stuck episodes observed today . P:CNCP
--- NOTE | 2017-01-03 19:02 | NUR ---
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 Patient denies S/I and H/I. She also denies auditory and visual hallucinations. Depression is 0/10. Anxiety is "a little." A: Patient is cooperative, unkept, disheveled, guarded, restricted affect, dysthymic, endorses telepathy, limited insight, limited judgment. P: Follow care plan, coordinate with out-patient providers.
[2017-01-03] MEDS: Divalproex (QD) 500 mg ER24 Tablet PO SCH (20:03)
[2017-01-03] MEDS: risperiDONE 2 mg Tablet PO SCH (20:03)
--- NOTE | 2017-01-04 04:22 | NUR ---
nursing, nights, 11-7 s/o- has appeared to sleep after 2330 during q 15 minute assessments. a- no apparent distress. p- monitor behavior/emotional state, quality, times and amount of sleep, use and effect of medication. milly
[2017-01-04] MEDS: METRONIDAZOLE 500 MG PO SCH ×2 (08:17→20:30)
[2017-01-04 10:25] VITALS: BP 118/78; PULSE 87; RESP 16
--- NOTE | 2017-01-04 11:19 | PCM.PNPSY ---
Subjective Date of Service January 04, 2017 Subjective I spent 30 minutes both reviewing treatment plan with clinical team, interviewing the patient and providing supportive/educational psychotherapy. I spent more than 50% of the time counseling the patient. I reviewed the treatment plan with the patient and discussed options available including the potential risks, benefits and side effects. Virginia reports a continued mild improvement in thought organization and mood stability. Staff reports that she has been isolative but is attempting to participate more in one-to-one unit and group activities. She slept 7 hours. She remains psychomotor retarded but continues to show slow but daily improvement. She continues to be delusional about being . She feels that things are better and that now she has the alondra of God protecting her and is requesting discharge. She denies medication side effects. Mental Status Exam Vital Signs Vital Signs Date Time Temp Pulse Resp B/P Pulse Ox O2 Delivery O2 Flow Rate FiO2 01/04/17 10:25 36.5 87 16 118/78 Appearance: Unkept, Disheveled Attitude: Guarded Behavior: Other (prolonged furrowed stare, only periodic) Affect: Restricted, Flat Mood: Expansive, Dysthymic Thought Process/Associations: Blocking Speech Production: Soft, Mumbled Speech Rate: Lags/Latency Thought Content: Other (difficult to assess) Danger to Self/Suicidal Ideati: None Danger to Others: None Delusions: Other (Endorses telepathy) Hallucinations: Auditory (Denies) Consciousness: Alert Orientation: Person, Place, Situation Memory: Untestable Estimate Intellectual Function: Average (to ), Below Average Basis for IQ estimate: Word use/vocabulary, Educational history (9th grade education) Attention/Concentration & Cogn: Impaired Insight: Limited Judgement: Limited Mental Health Plan Patient is a 31 yo female in a nearly catatonic state and a very poor historian. She has a history of schizophrenia and poly substance abuse and was transferred to the care center from [facility] due to her ex-spouse being on staff there. She was evaluated in [facility] ED on 12/17/16 for bizarre behavior and transferred to [facility] where a bed was available. Per nursing staff, patient 's ex- is on staff which led to a "conflict of interest resulting in legal matters", they requested a transfer to our facility. She has likely been noncompliant with her medications leading to decompensation. Substance abuse is likely a contributing factor however patient is not specific about recent use and urine tox dip in the ED on 12/17/16 was negative. On admission She appeared disheveled, acting detached, and bizarre. She has intense feelings about God in that she wants Him to be respected and when asked about family history she states that her mother has diabetes type II or she used to if God has cured it already. She presented as suspicious and guarded with prolonged blank stare. Her Thought process remains guarded with occasional thought blocking but overall has significantly improved. Patient is now sleeping well but remains tired. She is overall improving and and at times can be expressive and joyful relatively. [place] AXIS I: Schizophrenia, chronic paranoid type Poly substance use disorder AXIS II: Deferred AXIS III: Bacterial vaginosis AXIS IV: Unknown AXIS V: GAF 35 Medications Metronidazole 500 mg twice a day Olanzapine 10 mg nightly Clonazepam 0.5 mg twice daily Risperidone 2mg nightly Zolpidem 5 mg nightly as needed for insomnia Lorazepam 1 mg every 4 hours as needed for anxiety or agitation Treatments 1. The patient is admitted to the inpatient unit and will be provided a safe and secure environment. 2. The patient is denying current active suicidality and is not in need of a one-to-one at this time. 3. The patient is encouraged to participate with group and milieu activities. 4. The patient will be seen by the treatment team on a daily basis to assess symptoms, side effects and response to treatment. 5. DepakoteER 1000mg po nightly, blood level after 5 days (12/28/16) 65 6. Risperidone 2 mg at bedtime 7. Olanzapine changed to 10 mg HS in an effort to decrease daytime sleepiness. 8. Vitamin D low, supplement 5000 mg daily, beta HCG negative. 9. Anticipated length of stay is 14+ days. Clayton Cash MD January 04, 2017 11:19
--- NOTE | 2017-01-04 16:14 | NUR ---
Nursing Dayshift: S: "It's much better." O: Patient describing her anxiety today. Depression "low". Denies harmful thoughts and hallucinations. Social with select peers. Tolerated irritable peers making distasteful remarks about her. Peers redirected. Approachable. Fair appetite at meals. A: Quiet. Calm. P: CPOC. Monitor mood and behavior.
--- NOTE | 2017-01-04 16:39 | NUR ---
Observations 0700 - 1900 Pt was flat, quiet, lost and guarded. Pt continues to let other peers hover over her and attempt to care for her. Pt speech in soft and eye contact was ok. Pt is pleasant and friendly upon approach but doesn't say much. Pt is polite and cooperative. Pt maintained behavior control throughout the shift. Pt attended community meeting and set a daily goal. Pt stated that she wants to continue moving forward. Pt rated her mood 4/10, with 10 being the best. Pt attended group and also went out on patio to get fresh air with staff and peers. Pt attended meals in D.R. and ate 100% and 75% of meals. Pt ate snack. Pt was observed every 15 minutes throughout the shift as ordered.
--- NOTE | 2017-01-04 18:58 | NUR ---
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 Patient denies S/I and H/I. She also denies auditory and visual hallucinations. Depression is 0/10 and anxiety is 0/10. When asked her mood, patient stated, "Less flat." A: Patient is cooperative, unkept, disheveled, guarded, restricted affect, dysthymic, endorses telepathy, limited insight, limited judgment. P: Follow care plan, coordinate with out-patient providers.
[2017-01-04] MEDS: risperiDONE 2 mg Tablet PO SCH (20:38)
[2017-01-04] MEDS: Divalproex (QD) 500 mg ER24 Tablet PO SCH (20:38)
--- NOTE | 2017-01-05 05:54 | NUR ---
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 No complaints voiced.
[2017-01-05] MEDS: METRONIDAZOLE 500 MG PO SCH ×2 (08:09→20:16)
[2017-01-05 08:37] VITALS: BP 125/64; PULSE 86; RESP 16
--- NOTE | 2017-01-05 14:56 | NUR ---
day shift note S/O-"I want to go home and see my family." Pt. stated her anxiety and depression is 5/10 and denies hallucinations and SI. She walks with a downcast gaze and a slow gait. She has a blunted affect and speaks in short phrases. She has diverted eye contact and appears to have internal stimuli. She is appropriate with staff and peers. She has an adequate appetite. She stated she slept well last night. A-Lack of insight. Psychosis. P-Monitor for safety per protocol. Keep to regular routine on unit. Assess efficacy of meds to manage target symptoms. Encourage engagement in milieu activities.
--- NOTE | 2017-01-05 18:19 | NUR ---
Observations [id number] Pt was asleep upon start of shift. She continues to be very delayed with speech and responses. Pt continues to follow peers around the unit much of the day, and sleeping. Pt did not shower or do any laundry today. She attended all meals, eating 100%. Pt also attended groups, going outside and spent a short time in the art room. Pt was observed every 15 minutes of shift as directed.
[2017-01-05] MEDS: risperiDONE 2 mg Tablet PO SCH (20:16)
[2017-01-05] MEDS: Divalproex (QD) 500 mg ER24 Tablet PO SCH (20:16)
--- NOTE | 2017-01-05 22:46 | NUR ---
NURSING NOTE [id number] Mood: "alright" *scoffs* Affect: flat but brightens off and on Behavior: social on unit w/peers, spent time chatting w/peers out on the patio, med compliant at , attended all groups Thought processes: pt denies all issues this evening and expressed that she feels she does not need to be here and that she should be discharged. Showing lack of insight as to why she is here and why she is taking some of her medications. Did not know the medications she was taking this evening -- education provided. Pt. denies AH/VH/SI/HI.
--- NOTE | 2017-01-05 23:38 | PCM.PNPSY ---
Subjective Date of Service January 05, 2017 Subjective Patient brighter, interacting with peers, attending to hygiene. Patient still reporting some daytime sedation. Patient still believing that she is , informed of recent negative HCG, but patient wants additional follow-up. She states that peers have told her that CPS will try to take her children away, but they have already been placed with the father in one case and grandparents in the other. The patient reports still having voices telling her to slit her wrists but she meditates on God's intention, "he has a plan for me, and that's [ suicide] is not it." Sleep: 8 hours Appetite: "better, but I still need some prompting." Suicidal and homicidal ideation: denies Auditory hallucinations: as above, decreased overall Visual hallucinations: denies Other Psychotic Symptoms: still some thought blocking Anxiety: 12/19 Depression: 11/19 Current Medications Current Medications Clonazepam 0.5 mg HS PO Last administered on 01/05/17t 20:16; Admin Dose 0.5 MG ; Start 01/05/17 at 21:00 Mental Status Exam Appearance: Neat/well groomed Attitude: Cooperative, Guarded Behavior: Other (still latent) Affect: Restricted Mood: Dysthymic, Anxious Thought Process/Associations: Logical/Sequential, Goal Directed, Blocking Speech Production: Paucity Speech Rate: Lags/Latency Speech Articulation: Normal Thought Content: Somatic preoccupation Danger to Self/Suicidal Ideati: None Danger to Others: None Delusions: Paranoid (Endorses) Hallucinations: Auditory (Endorses), Visual (Denies) Consciousness: Alert Orientation: Person, Place, Situation Memory: Grossly Intact, Short Term Memory (Impaired) Estimate Intellectual Function: Average (to ), Below Average Basis for IQ estimate: Word use/vocabulary, Educational history (9th grade education) Attention/Concentration & Cogn: Impaired Insight: Limited Judgement: Limited Mental Health Plan Patient is a 31 yo female in a nearly catatonic state which makes her a very poor historian with history of schizophrenia and poly substance abuse transferred to the care center from [facility]. She was evaluated in [facility] ED on 12/17/16 for bizarre behavior and transferred to [facility] where a bed was available. Per nursing staff, patient's ex- is on staff which led to a "conflict of interest resulting in legal matters", they requested a transfer to our facility. Given her low depakote level, she has likely been noncompliant with her medications leading to decompensation. Substance abuse was likely a contributing factor however patient was not specific about recent use and urine tox dip in the ED on 12/17/16 was negative. She appeared disheveled, acting detached, and bizarre. She had intense feelings about God. She reported her primary goal is to get to [place]. She presented as suspicious and guarded with prolonged blank stare at times. Her thought process were guarded with occasional thought blocking. The patient has made significant improvement with brighter affect and is attending to hygiene. She still is easily influenced by others and believes that she is . The patient reports that she had P450 testing done at [facility] in 2012 but does not have the results. Although patient has AH telling her to harm herself, she does not find them threatening and finds it easy to ignore them. [place] AXIS I: Schizophrenia, chronic paranoid type Poly substance use disorder AXIS II: Deferred AXIS III: Bacterial vaginosis AXIS IV: Unknown AXIS V: GAF 35 Medications Metronidazole 500 mg twice a day Olanzapine 10 mg nightly Clonazepam 0.5 mg twice daily Risperidone 2mg nightly Zolpidem 5 mg nightly as needed for insomnia Lorazepam 1 mg every 4 hours as needed for anxiety or agitation Treatments 1. The patient is admitted to the inpatient unit and will be provided a safe and secure environment. 2. The patient is denying current active suicidality and is not in need of a one-to-one at this time. 3. The patient is encouraged to participate with group and milieu activities. 4. The patient will be seen by the treatment team on a daily basis to assess symptoms, side effects and response to treatment. 5. DepakoteER 1000mg po nightly, blood level after 5 days (12/28/16) 65 6. Risperidone 2 mg at bedtime, patient declining increase due to prior h/o , prolactin elevated 7. Olanzapine changed to 10 mg HS in an effort to decrease daytime sleepiness. If P450 testing not available, will increase vs. depakote. 8. Vitamin D low, supplement 5000 mg daily, beta HCG negative. 9. Obtain records from [facility] regarding P450. 10. Anticipated length of stay is 14+ days. Quinn Rosen MD January 05, 2017 23:38
--- NOTE | 2017-01-06 05:30 | NUR ---
Nursing NOC 7p-7a PT has been sleeping all night on safety rounds. Voiced no complaints. Will continue with current POC and monitor for any A/R.
--- NOTE | 2017-01-06 11:57 | NUR ---
Nursing Note [id number] Behavior S/O: Pt ate 100% of breakfast. She attended community meeting this morning. Out in milieu. Cooperative with staff & peers. Conversation tracking clear & organized with soft tone. She answers questions appropriately. She states, "I want to go home." Eye contact improving. Slightly restricted affect. A: Pt slowly improving. P: Provide supportive environment. Monitor medications & effects.
[2017-01-06 18:42] VITALS: BP 117/71; PULSE 82; RESP 16
--- NOTE | 2017-01-06 20:29 | NUR ---
Observations 00 - 0 Pt affect and mood continues to be flat, quiet, lost and guarded. Pt continues to let other peers hover over her and attempt to care for her. Pt speech in soft and eye contact was ok. Pt is pleasant and friendly upon approach but doesn't say much. Pt is polite and cooperative. Pt maintained behavior control throughout the shift. Pt attended community meeting and set a daily goal. Pt stated that she wants to continue moving forward. Pt rated her mood 9/10, with 10 being the best. Pt attended group and also went out on patio to get fresh air with staff and peers. Pt attended meals in D.R. and has a good appetite. Pt ate 100% of breakfast and 75% of lunch and dinner. Pt ate snack. Pt took a shower and washed a load of his clothes. Pt was observed every 15 minutes as ordered throughout the shift.
[2017-01-06] MEDS: Divalproex (QD) 500 mg ER24 Tablet PO SCH (20:32)
[2017-01-06] MEDS: risperiDONE 2 mg Tablet PO SCH (20:32)
--- NOTE | 2017-01-06 21:44 | PCM.PNPSY ---
Subjective Date of Service January 06, 2017 Subjective The patient used no as needed medication overnight. Patient brighter, interacting with peers, attending to hygiene. Patient reporting improved daytime sedation. Patient still believing that she is and reports feeling "something pulling me away from the piano room." She reported that she was "lobbying more for the right things representing rebirth." We discussed either increasing olanzapine or Depakote and patient agreed that she seemed to be helped better by Depakote. No side effect complaints. Sleep: 7.5 hours Appetite: "good, not as much prompting." Suicidal and homicidal ideation: denies Auditory hallucinations: as above, decreased overall Visual hallucinations: denies Other Psychotic Symptoms: still some thought blocking Anxiety: 11/19 Depression: 09/21 Current Medications Current Medications Clonazepam 0.5 mg HS PO Last administered on 01/06/17 20:32; Admin Dose 0.5 MG ; Start 01/05/17 at 21:00 Divalproex Sodium 1,500 mg HS PO Last administered on 01/06/17 20:32; Admin Dose 1,500 MG; Start 01/06/17 at 21:00 Mental Status Exam Vital Signs Vital Signs Date Time Temp Pulse Resp B/P Pulse Ox O2 Delivery O2 Flow Rate FiO2 01/06/17 18:42 36.2 82 16 117/71 Appearance: Neat/well groomed Attitude: Cooperative, Guarded Behavior: Other (still latent) Affect: Restricted, Other (smiling more) Mood: Anxious Thought Process/Associations: Logical/Sequential, Goal Directed, Blocking Speech Production: Paucity Speech Rate: Lags/Latency Speech Articulation: Normal Thought Content: Somatic preoccupation Danger to Self/Suicidal Ideati: None Danger to Others: None Delusions: Paranoid (Endorses) Hallucinations: Auditory (Endorses), Visual (Denies) Consciousness: Alert Orientation: Person, Place, Situation Memory: Grossly Intact, Short Term Memory (Impaired) Estimate Intellectual Function: Average Basis for IQ estimate: Word use/vocabulary, Educational history (9th grade education) Attention/Concentration & Cogn: Impaired Insight: Limited Judgement: Limited Mental Health Plan Patient is a 31 yo female in a nearly catatonic state on admission, which made her a very poor historian with history of schizophrenia and poly substance abuse [facility]. She was evaluated in [facility] ED on 12/17/16 for bizarre behavior and transferred to [facility] where a bed was available. Per nursing staff, patient's ex- is on staff and they requested a transfer to our facility. Given her low depakote level, she had likely been noncompliant with her medications leading to decompensation. Substance abuse was likely a contributing factor however patient was not specific about recent use and urine tox dip in the ED on 12/17/16 was negative. She appeared disheveled, acting detached, and bizarre. She had intense feelings about God. She reported her primary goal is to get to [place]. She presented as suspicious and guarded with prolonged blank stare at times. Her thought process were guarded with occasional thought blocking. The patient has made significant improvement with brighter affect and is attending to hygiene. She still is easily influenced by others and believes that she is . The patient reports that she had P450 testing done at [facility] in 2012 but does not have the results. Although patient has AH telling her to harm herself, she does not find them threatening and finds it easy to ignore them. Given her persisting restoration delusions, optimizing Depakote may improve paranoia. Patient agreeable. [place] AXIS I: Schizophrenia, chronic paranoid type Poly substance use disorder AXIS II: Deferred AXIS III: Bacterial vaginosis AXIS IV: Unknown AXIS V: GAF 35 Medications Depakote ER 1000mg nightly Olanzapine 10 mg nightly Clonazepam 0.5 mg twice daily Risperidone 2mg nightly Zolpidem 5 mg nightly as needed for insomnia Lorazepam 1 mg every 4 hours as needed for anxiety or agitation Treatments 1. The patient is admitted to the inpatient unit and will be provided a safe and secure environment. 2. The patient is denying current active suicidality and is not in need of a one-to-one at this time. 3. The patient is encouraged to participate with group and milieu activities. 4. The patient will be seen by the treatment team on a daily basis to assess symptoms, side effects and response to treatment. 5. Increase depakoteER to 1500mg po nightly, recheck blood level in 5 days. 6. Risperidone 2 mg at bedtime, patient declining increase due to prior h/o , prolactin elevated 7. Olanzapine changed to 10 mg HS in an effort to decrease daytime sleepiness. 8. Vitamin D low, supplement 5000 mg daily, beta HCG negative. 9. Obtain records from [facility] regarding P450. 10. Anticipated length of stay is 14+ days. Quinn Rosen MD January 06, 2017 21:44 Quinn Rosen MD January 06, 2017 21:44
--- NOTE | 2017-01-06 22:58 | NUR ---
NURSING NOTE [id number] Mood: "good" Affect: smiling more, laughing appropriately in conversation, good eye contact Behavior: social w/peers, attended rec group, watched movies in the DR w/peers, med compliant Thought processes: continues to harbor delusions re: being and has told both staff and peers she is and is seen on unit walking around caressing her abdomen. She denies AH/VH/SI. Denies feeling depressed or anxious. Spoke to this ghost writer in soft voice but used full, clear sentences.
--- NOTE | 2017-01-07 05:05 | NUR ---
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 Voices no complaints.
--- NOTE | 2017-01-07 10:47 | NUR ---
Nursing Note [id number] Behavior S/O: Pt ate 100% of breakfast. Pt attended & participated in community meeting this morning. Out in milieu joking with peers. Pt can speak with normal rate & volume when talking with peers. Pt becomes quiet when answering questions about her mental health. Pt stated she used "lotion" & "toothpaste" on her face for beauty treatment. Pt states she wants to go home. A: Pt con't to be guarded. Little insight into illness. P: Provide supportive environment. Monitor medications & effects.
[2017-01-07 17:24] VITALS: BP 131/85; PULSE 85; RESP 16
--- NOTE | 2017-01-07 18:24 | PCM.PNPSY ---
Subjective Date of Service January 07, 2017 Subjective The patient used no as needed medication overnight. The patient was in bed acting somewhat withdrawn but brightened with a broad smile when a joke was made. She stated that her mood was "pretty good." She felt that she was doing better overall and stated that she had a "better goal, to be discharged." She reports that she is currently in bed as she is feeling somewhat overwhelmed but cannot say by what. She thinks the increase in Depakote has helped her thought processes somewhat. No side effect complaints. Sleep: 7.5 hours, "well" Appetite: "good." Suicidal and homicidal ideation: denies Auditory hallucinations: Reports present but not a problem Visual hallucinations: denies Other Psychotic Symptoms: still some thought blocking Anxiety: "A little" Depression: "Some sadness" Current Medications Current Medications Clonazepam 0.5 mg HS PO Last administered on 01/06/17 20:32; Admin Dose 0.5 MG ; Start 01/05/17 at 21:00 Divalproex Sodium 1,500 mg HS PO Last administered on 01/06/17 20:32; Admin Dose 1,500 MG; Start 01/06/17 at 21:00 Mental Status Exam Vital Signs Vital Signs Date Time Temp Pulse Resp B/P Pulse Ox O2 Delivery O2 Flow Rate FiO2 01/07/17 17:24 36.2 85 16 131/85 Appearance: Neat/well groomed Attitude: Cooperative, Guarded Behavior: Other (still latent) Affect: Restricted, Other (smiling more) Mood: Anxious Thought Process/Associations: Logical/Sequential, Goal Directed, Blocking Speech Production: Paucity Speech Rate: Lags/Latency Speech Articulation: Normal Thought Content: Somatic preoccupation Danger to Self/Suicidal Ideati: None Danger to Others: None Delusions: Paranoid (Endorses) Hallucinations: Auditory (Endorses), Visual (Denies) Consciousness: Alert Orientation: Person, Place, Situation Memory: Grossly Intact, Short Term Memory (Impaired) Estimate Intellectual Function: Average Basis for IQ estimate: Word use/vocabulary, Educational history (9th grade education) Attention/Concentration & Cogn: Impaired Insight: Limited Judgement: Limited Mental Health Plan Patient is a 31 yo female in a nearly catatonic state on admission, which made her a very poor historian with history of schizophrenia and poly substance abuse [facility]. She was evaluated in [facility] ED on 12/17/16 for bizarre behavior and transferred to [facility] where a bed was available. Per nursing staff, patient's ex- is on staff and they requested a transfer to our facility. Given her low depakote level, she had likely been noncompliant with her medications leading to decompensation. Substance abuse was likely a contributing factor however patient was not specific about recent use and urine tox dip in the ED on 12/17/16 was negative. She appeared disheveled, acting detached, and bizarre. She had intense feelings about God. She reported her primary goal is to get to [place]. She presented as suspicious and guarded with prolonged blank stare at times. Her thought process were guarded with occasional thought blocking. The patient has made significant improvement with brighter affect and is attending to hygiene. She was noted to be up and interacting with peers in the day room prior to interview by the treatment team. The patient previously reported that she had P450 testing done at [facility] in 2012 but does not have the results and these will need to be obtained Saturday. The patient appears to believe that Depakote is helpful with her symptoms and she is noting a decrease in her auditory hallucinations. [place] AXIS I: Schizophrenia, chronic paranoid type Poly substance use disorder AXIS II: Deferred AXIS III: Bacterial vaginosis AXIS IV: Unknown AXIS V: GAF 35 Medications Depakote ER 1500mg nightly Olanzapine 10 mg nightly Clonazepam 0.5 mg twice daily Risperidone 2mg nightly Zolpidem 5 mg nightly as needed for insomnia Lorazepam 1 mg every 4 hours as needed for anxiety or agitation Treatments 1. The patient is admitted to the inpatient unit and will be provided a safe and secure environment. 2. The patient is denying current active suicidality and is not in need of a one-to-one at this time. 3. The patient is encouraged to participate with group and milieu activities. 4. The patient will be seen by the treatment team on a daily basis to assess symptoms, side effects and response to treatment. 5. Continue Depakote ER 1500mg po nightly, recheck blood level in 5 days. 6. Risperidone 2 mg at bedtime, patient declining increase due to prior h/o , prolactin elevated 7. Olanzapine changed to 10 mg HS in an effort to decrease daytime sleepiness. 8. Vitamin D low, supplement 5000 mg daily, beta HCG negative. 9. Obtain records from [facility] regarding P450. 10. Anticipated length of stay is 14+ days. Quinn Rosen MD January 07, 2017 18:24
--- NOTE | 2017-01-07 19:43 | NUR ---
NURSING NOTE [id number] Mood: "kind of cranky" Affect: irritable, sarcastic w/this publicity writer Behavior: napping in bed at start of shift, later spent time on patio w/female peers socializing. Ate all of her meals. Watched TV w/peers. Med compliant. Thought processes: pt. reports she is cranky because she is still here and feels she does not need to be. She became exasperated when this publicity writer asked her if she has any AH/VH and said "no, I wish everyone would quit asking me that!" Continues to deny all psychiatric and safety issues.
[2017-01-07] MEDS: risperiDONE 2 mg Tablet PO SCH (20:06)
[2017-01-07] MEDS: Divalproex (QD) 500 mg ER24 Tablet PO SCH (20:06)
--- NOTE | 2017-01-07 20:57 | NUR ---
Observations 00 - 0 Pt affect and mood continues to be flat, quiet, lost and guarded. Pt speech in soft and eye contact was ok. Pt is pleasant and friendly upon approach but doesn't say much. Pt is polite and cooperative. Pt maintained behavior control throughout the shift. Pt attended community meeting and set a daily goal. Pt stated that she wants to continue moving forward. Pt rated her mood "at home"/10, on a scale of 1 to 10 with 10 being the best. Pt went out on patio to get fresh air with staff and peers. Pt attended meals in D.R. and has a good appetite. Pt ate 100% of breakfast, lunch and dinner. Pt ate snack. Pt took a shower and washed a load of his clothes. Pt rested in her room during free time. Pt was observed every 15 minutes as ordered throughout the shift.
--- NOTE | 2017-01-08 06:05 | NUR ---
Group Burner Machine Nursing Note 7pm to 7am Pt asleep at start of shift. Breathing even and unlabored. Slept without interruption for 8.75 hours. Monitoring ongoing.
--- NOTE | 2017-01-08 06:41 | NUR ---
OBSERVATIONS Pt was pleasant and cooperative with staff. Pt was in common areas for much of the shift but did not overtly socialize. Pt struggles to vocalize wishes and advocate for herself. It appears that at times other pts can be overbearing and overwhelming to her. Pt slept well. Pt showered in the morning. Maintained Q15 checks for safety as directed.
[2017-01-08 08:26] VITALS: BP 123/81; PULSE 96; RESP 17
--- NOTE | 2017-01-08 13:41 | NUR ---
Nursing Note [id number] Behavior, Mood S/O: Pt has good appetite. Vital signs stable. Pt rated mood at a "8 1/2" on a scale of 1-10/10 the best. She reports "a little" anxiety. "I'd feel better if I was at home than I do here." Pt out in milieu interacting appropriately with peers. Pt denies hallucinations. Pt's conversation tracking clear & organized. She becomes more quiet & hard to understand when talking with staff about mental health problems. A: Pt has little insight into mental illness. P: Provide supportive environment. Monitor medications & effects.
--- NOTE | 2017-01-08 14:52 | NUR ---
Obs Dayshift Pt is more able to have a 1:1 conversation, but continues to be very quiet, mumbling, and not understandable at times. Pt is attending groups, and participating in programs. Pt has been calm today, engages w/ some peers and staff. Quiet and keeps away from other peers. Pt continues to rest often in bed, head down and appears confused or sad. Pt is eating well, Good ADL's
--- NOTE | 2017-01-08 16:10 | NUR ---
Repairer And Checker/Counselor S:"My mood is just ok." O: Patient did not express any SI or HI, or any auditory or visual hallucinations. She did rate her anxiety at a 6, and her depression at a 5. She stated that her mood was "ok". A: Patient was very quiet, and very hard to understand. Questions had to be asked a couple times in order to hear the answer. Patient did attend group, and was a little more lively, but when trying to engage in one on one conversation, client needs to be prompted to speak up. P: Follow care plan and coordinate with outpatient providers.
--- NOTE | 2017-01-08 17:30 | PCM.PNPSY ---
Subjective Date of Service January 08, 2017 Subjective The patient was more alert today and friendly with good eye contact and engagement and occasional smiling and laughing. This was still interspersed with periods of low speech and mumbling but these episodes were less frequent. She stated that she is feeling approximately 50% of her best normal self. She states that she feels that things are more "in balance and." She reports that she is still talking to God approximately 20 times per day and he is responding in a way that reminds her of the trauma. She reported that earlier in the day she had a meltdown as she had had an epiphany. Sleep: 7.5 hours, "well" Appetite: "good." Suicidal and homicidal ideation: denies Auditory hallucinations: Endorses Visual hallucinations: denies Other Psychotic Symptoms: still some thought blocking Anxiety: Denies Depression: Denies Current Medications Current Medications Divalproex Sodium 1,500 mg HS PO Last administered on 01/07/17t 20:06; Admin Dose 1,500 MG; Start 01/06/17 at 21:00 Mental Status Exam Appearance: Neat/well groomed Attitude: Cooperative, Guarded Behavior: Other (still latent) Affect: Restricted, Other (smiling more) Mood: Euthymic (at times), Anxious Thought Process/Associations: Logical/Sequential, Goal Directed, Blocking Speech Production: Paucity Speech Rate: Lags/Latency Speech Articulation: Normal Thought Content: Somatic preoccupation Danger to Self/Suicidal Ideati: None Danger to Others: None Delusions: Paranoid (Endorses) Hallucinations: Auditory (Endorses), Visual (Denies) Consciousness: Alert Orientation: Person, Place, Situation Memory: Grossly Intact, Short Term Memory (Impaired) Estimate Intellectual Function: Average Basis for IQ estimate: Word use/vocabulary, Educational history (9th grade education) Attention/Concentration & Cogn: Impaired Insight: Limited Judgement: Limited Mental Health Plan Patient is a 31 yo female in a nearly catatonic state on admission, which made her a very poor historian with history of schizophrenia and poly substance abuse [facility]. She was evaluated in [facility] ED on 12/17/16 for bizarre behavior and transferred to [facility] where a bed was available. Per nursing staff, patient's ex- is on staff and they requested a transfer to our facility. Given her low depakote level, she had likely been noncompliant with her medications leading to decompensation. Substance abuse was likely a contributing factor however patient was not specific about recent use and urine tox dip in the ED on 12/17/16 was negative. She appeared disheveled, acting detached, and bizarre. She had intense feelings about God. She reported her primary goal is to get to [place]. She presented as suspicious and guarded with prolonged blank stare at times. Her thought process were guarded with occasional thought blocking. The patient has made significant improvement with brighter affect and is attending to hygiene. She was noted to be up and interacting with peers in the day room and during group. The patient previously reported that she had P450 testing done at [facility] in 2012 but does not have the results and we have called to see if they are available. The patient appears to believe that Depakote is helpful with her symptoms and she is noting a decrease in her auditory hallucinations. The patient is agreeable to increasing the olanzapine and decreasing risperidone. [place] AXIS I: Schizophrenia, chronic paranoid type Poly substance use disorder AXIS II: Deferred AXIS III: Bacterial vaginosis AXIS IV: Unknown AXIS V: GAF 35 Medications Depakote ER 1500mg nightly Olanzapine 10 mg nightly Clonazepam 0.5 mg twice daily Risperidone 2mg nightly Zolpidem 5 mg nightly as needed for insomnia Lorazepam 1 mg every 4 hours as needed for anxiety or agitation Treatments 1. The patient is admitted to the inpatient unit and will be provided a safe and secure environment. 2. The patient is denying current active suicidality and is not in need of a one-to-one at this time. 3. The patient is encouraged to participate with group and milieu activities. 4. The patient will be seen by the treatment team on a daily basis to assess symptoms, side effects and response to treatment. 5. Continue Depakote ER 1500mg po nightly, recheck blood level in 5 days. 6. Decrease Risperidone to 1 mg at bedtime, patient declining increase due to prior h/o , prolactin elevated 7. Olanzapine increase to 15 mg HS in an effort to decrease daytime sleepiness. 8. Vitamin D low, supplement 5000 mg daily, beta HCG negative. 9. Obtain records from [facility] regarding P450. 10. Anticipated length of stay is 14+ days. Quinn Rosen MD January 08, 2017 17:30
[2017-01-08] MEDS: Divalproex (QD) 500 mg ER24 Tablet PO SCH (21:55)
[2017-01-08] MEDS: risperiDONE 1 mg Tablet PO SCH (21:55)
--- NOTE | 2017-01-08 22:30 | NUR ---
NURS Note [id number] Mood: Endorses anxiety 07/21, given scheduled Klonopin. Denies depression. Affect: Restricted. Behavior: Pt spent much of shift in common areas interacting with peers. Thought Content/Process: Linear. Endorses HI, "I wish I had my gun rights so I could hurt people who hurt my family." Endorses AH, "I hear good voices and bad voices, sometimes they sound like someone else is talking to me." Denies SI. Denies VH. Pt speaks in soft voice with inspector automatic typewriter, difficult to assess thought content. Pt has been observed speaking at audible volume with peers. PRN/NURS Notes: No PRNs.
[2017-01-09 09:20] VITALS: BP 119/68; PULSE 85; RESP 16
--- NOTE | 2017-01-09 12:43 | NUR ---
Braid Cutter/Counselor S: "I feel more relaxed today." O: Patient did not express any SI or HI, and has had no visual hallucinations. She stated that her only auditory hallucinations were her conversations with god. She reported her anxiety was 0, down from a 12 last night. Her depression rated at a 6, and she reported feeling a little anxious and tired but that she slept well after her med change, and she feels a lot more relaxed today. Patient slept for 6+ hours. A: Patient was very cooperative and at times very lively and smiley. She got excited a few times when she was talking, which increased her speaking volume, and was much easier to understand. When asked questions about how she was feeling etc she was very quiet and hard to hear. Patient gets excited once engaged. P: Follow care plan and coordinate with outpatient providers. Follow up with behavior. Addendum: 01/09/17 at 1351 by [facility] [place] participated in group today, and was at times talkative and engaged, but did not want to share her "What I've been up to" activity with the group.
--- NOTE | 2017-01-09 14:43 | NUR ---
nursing note: "In love" is how she described her mood After asking if I believed in spirits, told me that a nymph had comforted her and told her she was not a nymphomaniac. her speech is pressured and tangential. She continues to mumble and is quite irritable when asked to speak louder. Is minimally social. Her appetite is good
--- NOTE | 2017-01-09 15:39 | NUR ---
Obs Dayshift Pt is slightly more talkative today and more volume to her voice. Pt continues to stand around the milieu for long periods of time staring blankly. Pt is engaging a little more w/ peers, attending more groups. Taking more naps today during free times. States that she is feeling much better and would like to get back home to her apartment. Good meals, Good ADL's
--- NOTE | 2017-01-09 17:23 | PCM.PNPSY ---
Subjective Date of Service January 09, 2017 Subjective The patient reports that she is doing "okay ... A little anxious looking forward. I felt scared, uncertain, and overwhelmed [before ] and now I am just tired and more relaxed." She reports having some "righteous rage" which means putting things together to move forward. The patient was more alert today and friendly with good eye contact and engagement and occasional smiling and laughing. This was still interspersed with periods of low speech and mumbling but these episodes were less frequent. She stated that she is feeling approximately 100% of her best normal self although this seems unlikely. She states that she feels that things are more "in balance and." She reports that she is still talking to God and he is talking back in a critical way with the example of "do not eat the apple". She reported that earlier in the day she had a meltdown as she had had an epiphany. Sleep: 6 hours, "well" Appetite: "It is okay." Suicidal and homicidal ideation: denies Auditory hallucinations: Endorses Visual hallucinations: denies Other Psychotic Symptoms: still some thought blocking Anxiety: 12 earlier, 0/10 now. Depression: 01/19 Current Medications Current Medications Olanzapine 15 mg HS PO Last administered on 01/08/17 21:55; Admin Dose 15 MG; Start 01/08/17 at 21:00 Risperidone 1 mg HS PO Last administered on 01/08/17 21:55; Admin Dose 1 MG; Start 01/08/17 at 21:00 Mental Status Exam Vital Signs Vital Signs Date Time Temp Pulse Resp B/P Pulse Ox O2 Delivery O2 Flow Rate FiO2 01/09/17 09:20 36.5 85 16 119/68 Appearance: Neat/well groomed Attitude: Cooperative, Guarded Behavior: Other (still latent) Affect: Restricted, Other (smiling more) Mood: Euthymic (at times), Anxious Thought Process/Associations: Logical/Sequential, Goal Directed, Blocking Speech Production: Paucity Speech Rate: Lags/Latency Speech Articulation: Normal Thought Content: Somatic preoccupation Danger to Self/Suicidal Ideati: None Danger to Others: None Delusions: Paranoid (Endorses) Hallucinations: Auditory (Endorses), Visual (Denies) Consciousness: Alert Orientation: Person, Place, Situation Memory: Grossly Intact, Short Term Memory (Impaired) Estimate Intellectual Function: Average Basis for IQ estimate: Word use/vocabulary, Educational history (9th grade education) Attention/Concentration & Cogn: Impaired Insight: Limited Judgement: Limited Mental Health Plan Patient is a 31 yo female in a nearly catatonic state on admission, which made her a very poor historian with history of schizophrenia and poly substance abuse transferred to the [facility] from [facility]. She was evaluated in [facility] ED on 12/17/16 for bizarre behavior and transferred to [facility] where a bed was available. Per nursing staff, patient's ex- is on staff and they requested a transfer to our facility. Given her low depakote level, she had likely been noncompliant with her medications leading to decompensation. Substance abuse was likely a contributing factor however patient was not specific about recent use and urine tox dip in the ED on 12/17/16 was negative. She appeared disheveled, acting detached, and bizarre. She had intense feelings about God. She reported her primary goal is to get to [place]. She presented as suspicious and guarded with prolonged blank stare at times. Her thought process were guarded with occasional thought blocking. The patient has made significant improvement with brighter affect and is attending to hygiene. She was noted to be up and interacting with peers in the day room and during group. The patient previously reported that she had P450 testing done at [facility] in 2012 but according to [facility], she did not have any such testing during her 2013 stay. The patient feels that she is having some benefit to decreasing the Risperdal in increasing olanzapine. While at [facility] she received prazosin 1mg which was increased to 2 mg Haldol 5 mg twice a day and benztropine 1 mg twice a day and haloperidol decanoate 100 mg every 3 weeks. [place] AXIS I: Schizophrenia, chronic paranoid type Poly substance use disorder AXIS II: Deferred AXIS III: Bacterial vaginosis AXIS IV: Unknown AXIS V: GAF 35 Medications Depakote ER 1500mg nightly Olanzapine 15 mg nightly Clonazepam 0.5 mg twice daily Risperidone 1mg nightly Zolpidem 5 mg nightly as needed for insomnia Lorazepam 1 mg every 4 hours as needed for anxiety or agitation Treatments 1. The patient is admitted to the inpatient unit and will be provided a safe and secure environment. 2. The patient is denying current active suicidality and is not in need of a one-to-one at this time. 3. The patient is encouraged to participate with group and milieu activities. 4. The patient will be seen by the treatment team on a daily basis to assess symptoms, side effects and response to treatment. 5. Continue Depakote ER 1500mg po nightly, recheck blood level in 5 days. 6. Continue taper of Risperidone and discontinue next few days 7. Olanzapine increase to 15 mg HS in an effort to decrease daytime sleepiness consider increasing next few days. 8. Vitamin D low, supplement 5000 mg daily, beta HCG negative. 9. Patient would likely benefit from P450 testing in the future. 10. Anticipated length of stay is 14+ days. Quinn Rosen MD January 09, 2017 17:23
[2017-01-09] MEDS: Divalproex (QD) 500 mg ER24 Tablet PO SCH (20:42)
[2017-01-09] MEDS: risperiDONE 1 mg Tablet PO SCH (20:43)
--- NOTE | 2017-01-09 22:16 | NUR ---
Nurses Note evening Patient has been interacting with select peers. Her thoughts remain slow,speech hesitant and low volume at times but has had good eye contact. She remains medication compliant and has a Depakote level ordered in am. Patient has attended groups,is appropriately social with a good appetite,poor hygiene and undisturbed sleep pattern. Will continue q 15min. checks for safety and support. Addendum: 01/09/17 at 2219 by RAN MARTINEZ RN Amended: Links added.
--- NOTE | 2017-01-10 04:18 | NUR ---
Nursing NOC 7p-7a Nothing mentionable this shift with pt. PT appears a little more animated at times, but other times pt will just stand and look around with a completely blank stare. No complaints from her at this time. PT is directable. Will CTM meds for effectiveness and for any new A/R. PT has slept well so far tonight.
[2017-01-10 09:17] LABS: BASOPHILS % (AUTO) 0.3 % (0-3); EOSINOPHILS % (AUTO) 4.1 % (0-5); MONOCYTES % (AUTO) 8.6 % (4-12); Mean Corpuscular Hemoglobin 33.3 pg (27.0-35.0); Mean Corpuscular Volume 101.2 fL (81-100); Platelet Count 182 bil/L (150-400)
[2017-01-10 09:54] LABS: Valproic Acid 71 ug/mL (50-125)
[2017-01-10 11:00] VITALS: BP 118/83; PULSE 89; RESP 16
--- NOTE | 2017-01-10 13:49 | NUR ---
Nursing Note [id number] Behavior S/O: Pt ate 100% of breakfast & 75% of lunch. Pt out in milieu much of the day. Conversation tracking clear & organized with slightly slow rate & rhythm. Pt has poor eye contact. Occasional smiles. Pt stated, "They must be keeping me here because I'm inspiring all these new people." A: Pt slowly improving. P: Provide supportive environment. Monitor medications & effects.
--- NOTE | 2017-01-10 17:55 | NUR ---
Observations 00 - 0 Pt affect and mood continues to be flat, quiet and guarded. Pt speech in soft and eye contact was ok. Pt is pleasant and friendly upon approach but doesn't say much. Pt is polite and cooperative. Pt maintained behavior control throughout the shift. Pt attended community meeting and set a daily goal. Pt stated that she wants to discharge. Pt rated her mood 10/10, on a scale of 1 to 10 with 10 being the best. Pt attended group. Pt went out on patio to get fresh air with staff and peers. Pt is social with peers, but listens alot more than Pt attended meals in D.R. and has a good appetite. Pt ate 100% of breakfast, 75% of lunch and is currently eating dinner. Pt ate snack. Pt took a shower and washed a load of her clothes. Pt rested in her room during free time. Pt was observed every 15 minutes as ordered throughout the shift.
--- NOTE | 2017-01-10 19:41 | NUR ---
Nurses Note Evening Patient remains pleasant upon approach, has been quiet and on the periphery of the unit today. Patients' eye contact has been good and she has been tracking well in conversations with occasional unrealistic beliefs,i.e. her and her son as the father of her child. She has been medication compliant,has been attending groups occasionally with fair hygiene,adequate appetite and sleep pattern. Continue to reality test,encourage continued medication compliance,maintain q 15min. checks for safety and support. Addendum: 01/10/17 at 1946 by RAN MARTINEZ RN Amended: Links added.
--- NOTE | 2017-01-10 20:13 | NUR ---
customer advocacy manager/Counselor: S: "I am going to my buddhism when I discharge." O: Patient slept 6.75 hours last night per staff. Patient denies S/I and H/I. She also denies auditory and visual hallucinations. Depression is 0/10 and anxiety is 0/10. A: Patient is cooperative, unkept, disheveled, guarded, restricted affect, dysthymic, endorses telepathy, limited insight, limited judgment. P: Follow care plan, coordinate with out-patient providers. Addendum: 01/10/17 at 2014 by CORNELL FERNANDEZ [facility] Patient attended and participated in the afternoon group session.
[2017-01-10] MEDS: Divalproex (QD) 500 mg ER24 Tablet PO SCH (20:47)
--- NOTE | 2017-01-10 23:33 | PCM.PNPSY ---
Subjective Date of Service Jan 10, 2017 Subjective The patient reports that she is doing "Alright...good as far as I know." She reports her mood as 5/10, "pretty awesome, keeps it real and protective." Patient reports some left shoulder pain from an injury i 2003, but denies other side effects. Patient reports having hallucinations starting later in the morning. Discussed adding small dose of olanzapine and patient agreeable. Sleep: 6.75 hours, Appetite: "Getting better." Suicidal and homicidal ideation: denies Auditory hallucinations: Endorses Visual hallucinations: Wiccan figures in the past. Other Psychotic Symptoms: still some thought blocking Anxiety: 5/10 Depression: 10 Mental Status Exam Appearance: Neat/well groomed Attitude: Cooperative, Guarded Behavior: Other (still latent) Affect: Restricted, Other (smiling more) Mood: Euthymic (at times), Anxious Thought Process/Associations: Logical/Sequential, Goal Directed, Blocking Speech Production: Paucity Speech Rate: Lags/Latency Speech Articulation: Normal Thought Content: Somatic preoccupation Danger to Self/Suicidal Ideati: None Danger to Others: None Delusions: Paranoid (Endorses) Hallucinations: Auditory (Endorses), Visual (Denies) Consciousness: Alert Orientation: Person, Place, Situation Memory: Grossly Intact, Short Term Memory (Impaired) Estimate Intellectual Function: Average Basis for IQ estimate: Word use/vocabulary, Educational history (9th grade education) Attention/Concentration & Cogn: Impaired Insight: Limited Judgement: Limited Result Diagram: 01/10/17 0905 01/10/17 0905 Mental Health Plan Patient is a 31 yo female in a nearly catatonic state on admission, which made her a very poor historian with history of schizophrenia and poly substance abuse [facility]. She was evaluated in [facility] ED on 12/17/16 for bizarre behavior and transferred to [facility] where a bed was available. Per nursing staff, patient's ex- is on staff and they requested a transfer to our facility. Given her low depakote level, she had likely been noncompliant with her medications leading to decompensation. Substance abuse was likely a contributing factor however patient was not specific about recent use and urine tox dip in the ED on 12/17/16 was negative. She appeared disheveled, acting detached, and bizarre. She had intense feelings about God. She reported her primary goal is to get to [place]. She presented as suspicious and guarded with prolonged blank stare at times. Her thought process were guarded with occasional thought blocking. The patient has made significant improvement with brighter affect and is attending to hygiene. She was noted to be up and interacting with peers in the day room and during group. She still seems to have difficulty with thought blocking at times and although reporting near baseline still appears to have significant impairment. [place] AXIS I: Schizophrenia, chronic paranoid type Poly substance use disorder AXIS II: Deferred AXIS III: Bacterial vaginosis AXIS IV: Unknown AXIS V: GAF 35 Medications Depakote ER 1500mg nightly Olanzapine 15 mg nightly Clonazepam 0.5 mg twice daily Risperidone 1mg nightly Zolpidem 5 mg nightly as needed for insomnia Lorazepam 1 mg every 4 hours as needed for anxiety or agitation Treatments 1. The patient is admitted to the inpatient unit and will be provided a safe and secure environment. 2. The patient is denying current active suicidality and is not in need of a one-to-one at this time. 3. The patient is encouraged to participate with group and milieu activities. 4. The patient will be seen by the treatment team on a daily basis to assess symptoms, side effects and response to treatment. 5. Continue Depakote ER 1500mg po nightly, recheck blood level in 5 days. 6. Discontinue Risperdal, start Olanzapine 5mg daily. 7. Olanzapine increase to 15 mg HS in an effort to decrease daytime sleepiness consider increasing next few days. 8. Vitamin D low, supplement 5000 mg daily, beta HCG negative. 9. Patient would likely benefit from P450 testing in the future. 10. Anticipated length of stay is 14+ days. Quinn Rosen MD Jan 10, 2017 23:33
--- NOTE | 2017-01-11 05:14 | NUR ---
nursing, nights, 11-7 s/o- has appeared to sleep after 2300 during q 15 minute assessments. a- no apparent distress. p- monitor behavior/emotional state, quality, times and amount of sleep, use and effect of medication. milly
[2017-01-11 09:42] VITALS: BP 115/72; PULSE 83; RESP 12
--- NOTE | 2017-01-11 14:31 | NUR ---
Dayshift note S/O: Pt has been making good eye contact today, tracking well. Pt speech is clear, even though quiet. Pt has been making small conversation even though its not linear thoughts, but rather disorganized and delusional A:. Emotionally labile. Pt denies any SI or HI P: Follow plan of care, monitor behaviors. Monitor for side effects
--- NOTE | 2017-01-11 17:34 | PCM.PNPSY ---
Subjective Date of Service Jan 11, 2017 Subjective The patient reported "mild vertigo" this morning but reports that it is now gone after drinking water. She reports feeling that the olanzapine in the morning helped with her symptoms and reduced anxiety. She added that she thought she was doing well and near her baseline. She then added that she felt "tired of being hurt in here." When she was asked what she meant by this she stated that it was "too smaller space" and she felt too close to other people and there was nowhere for her to escape to when she felt the need. Sleep: 6.5 hours Appetite: "Okay... Better" Suicidal and homicidal ideation: Denies Auditory hallucinations: Reports only hearing the positive word of God saying, "not to give up." Visual hallucinations: "I saw a dragon when I close my eyes" she denies visual hallucinations when eyes are open. Other Psychotic Symptoms: Still with poverty of speech and mumbling at times but appears brighter. Anxiety: 0/10 Depression: 1/10 Current Medications Current Medications Olanzapine 5 mg DAILY PO Last administered on 01/11/17t 08:17; Admin Dose 5 MG; Start 01/11/17 at 08:30 Mental Status Exam Vital Signs Vital Signs Date Time Temp Pulse Resp B/P Pulse Ox O2 Delivery O2 Flow Rate FiO2 01/11/17 09:42 36.2 83 12 115/72 Appearance: Neat/well groomed Attitude: Cooperative, Guarded Behavior: Other (still latent) Affect: Restricted, Other (smiling more) Mood: Euthymic (at times), Anxious Thought Process/Associations: Logical/Sequential, Goal Directed, Blocking Speech Production: Paucity Speech Rate: Lags/Latency Speech Articulation: Normal Thought Content: Somatic preoccupation Danger to Self/Suicidal Ideati: None Danger to Others: None Delusions: Paranoid (Endorses) Hallucinations: Auditory (Endorses), Visual (Denies) Consciousness: Alert Orientation: Person, Place, Situation Memory: Grossly Intact, Short Term Memory (Impaired) Estimate Intellectual Function: Average Basis for IQ estimate: Word use/vocabulary, Educational history (9th grade education) Attention/Concentration & Cogn: Impaired Insight: Limited Judgement: Limited Result Diagram: 01/10/1790401/10/17 09 Mental Health Plan Patient is a 31 yo female in a nearly catatonic state on admission, which made her a very poor historian with history of schizophrenia and poly substance abuse [facility] from [facility]. She was evaluated in [facility] ED on 12/17/16 for bizarre behavior and transferred to [facility] where a bed was available. Per nursing staff, patient's ex- is on staff and they requested a transfer to our facility. Given her low depakote level, she had likely been noncompliant with her medications leading to decompensation. Substance abuse was likely a contributing factor however patient was not specific about recent use and urine tox dip in the ED on 12/17/16 was negative. She appeared disheveled, acting detached, and bizarre. She had intense feelings about God. She reported her primary goal is to get to [place]. She presented as suspicious and guarded with prolonged blank stare at times. Her thought process were guarded with occasional thought blocking. The patient has made significant improvement with brighter affect and is attending to hygiene. She appeared less latent than yesterday and overall more engaged. She is still having episodic bursts of very quiet speech but these appear less than yesterday. She was noted to be up and interacting with peers in the day room and during group. [place] AXIS I: Schizophrenia, chronic paranoid type Poly substance use disorder AXIS II: Deferred AXIS III: Bacterial vaginosis AXIS IV: Unknown AXIS V: GAF 35 Medications Depakote ER 1500mg nightly Olanzapine 15 mg nightly Clonazepam 0.5 mg twice daily Risperidone 1mg nightly Zolpidem 5 mg nightly as needed for insomnia Lorazepam 1 mg every 4 hours as needed for anxiety or agitation Treatments 1. The patient is admitted to the inpatient unit and will be provided a safe and secure environment. 2. The patient is denying current active suicidality and is not in need of a one-to-one at this time. 3. The patient is encouraged to participate with group and milieu activities. 4. The patient will be seen by the treatment team on a daily basis to assess symptoms, side effects and response to treatment. 5. Continue Depakote ER 1500mg po nightly, consider increasing dose as blood level 71 on 01/10/2017. 6. Continue olanzapine 5 mg daily and 15 milligrams at bedtime 7. Vitamin D low, supplement 5000 mg daily, beta HCG negative. 8. Patient would likely benefit from P450 testing in the future. 9. Anticipated length of stay is 14+ days. Quinn Rosen MD Jan 11, 2017 17:33
--- NOTE | 2017-01-11 18:20 | NUR ---
NURSING NOTE [id number] Mood: "okay" Affect: bright Behavior: visible in milieu; socializing w/peers and spending time out on the patio. Ate most of her meal. Thought processes: denies any psychiatric issues this shift, speaking in regular volume and in clear sentences, no SI/HI.
--- NOTE | 2017-01-11 18:34 | NUR ---
[facility] Day Shift Pt affect and behavior mostly unchanged from previous shifts. Pt maintained behavioral control throughout the shift. Pt affect appears flat, somewhat brighter when engaged with staff or peers. Pt remains somewhat latent, though less so than noted on previous shifts (pt also appears more vocal with staff and peers in general). Pt spends most of the shift sitting quietly in the dining room, participating in unit activities, or resting in her room. Pt is appropriate with staff and peers when active on the unit. Pt attended all meals and ate approx 70-100% of all meals.
--- NOTE | 2017-01-11 19:35 | NUR ---
computer operations manager/Counselor: S: "I took my medicine a little early last night." O: Patient slept 6.5 hours last night per staff. Patient denies S/I and H/I. She also denies auditory and visual hallucinations. Depression is 1/10 and anxiety is 4/10. A: Patient is cooperative, unkept, disheveled, guarded, restricted affect, dysthymic, endorses telepathy, limited insight, limited judgment. P: Follow care plan, coordinate with out-patient providers.
[2017-01-11] MEDS: Divalproex (QD) 500 mg ER24 Tablet PO SCH (20:27)
--- NOTE | 2017-01-12 01:51 | NUR ---
activity patient in and out of commmon room earlier in the evening interacting appropriate with staff. compliant with medications. Addendum: 01/12/17 at 0642 by MALLORY MINAYA RN slept well through the night. up early, but stayed in her bed in her room.
--- NOTE | 2017-01-12 15:02 | NUR ---
Nursing Day note- Up in dining area for meals and sitting and talking with others. When I asked her if she was feeling depressed, she said that she doesn't like when staff asks her that because it makes her miss her family. She talked about her sons and that she wants to get back home and do things with them. Says that she is sleeping and eating ok. She spoke more in a regular tone of voice instead of a whisper.
--- NOTE | 2017-01-12 15:10 | PCM.PNPSY ---
Subjective Date of Service Jan 12, 2017 Subjective I spent 30 minutes both reviewing treatment plan with our clinical team, interviewing the patient and providing supportive/educational psychotherapy. I spent more than 50% of the time counseling the patient. I reviewed the treatment plan with the patient and discussed options available including the potential risks, benefits and side effects. [place] reports a slight improvement in thought organization and mood stability. She denies auditory hallucinations. She states she talks with God but this appeared to be appropriate in terms of her adventist and social contacts. Staff reports that she has been super quiet but attempting to participate in one-to- one unit and group activities. She slept 6 hours and denies psychotic symptoms review. She felt that her depressive mood is improving. She denies medication side effects. She was able to identify her medications and what they were used to treat. Current Medications Current Medications Olanzapine 5 mg DAILY PO Last administered on 01/12/17t 08:35; Admin Dose 5 MG; Start 01/11/17 at 08:30 Mental Status Exam Appearance: Neat/well groomed Attitude: Cooperative, Guarded Behavior: Other (still latent) Affect: Restricted, Other (smiling more) Mood: Dysthymic, Anxious Thought Process/Associations: Logical/Sequential, Goal Directed, Blocking Speech Production: Paucity Speech Rate: Lags/Latency Speech Articulation: Normal Thought Content: Somatic preoccupation Danger to Self/Suicidal Ideati: None Danger to Others: None Delusions: Paranoid (Endorses) Consciousness: Alert Orientation: Person, Place, Situation Memory: Grossly Intact, Short Term Memory (Impaired) Estimate Intellectual Function: Average Basis for IQ estimate: Word use/vocabulary, Educational history (9th grade education) Attention/Concentration & Cogn: Impaired Insight: Limited Judgement: Limited Result Diagram: 01/10/1790401/10/17 09 Mental Health Plan Patient is a 31 yo female in a nearly catatonic state and a very poor historian. She has a history of schizophrenia and poly substance abuse and was transferred to the care center from [facility] due to her ex-spouse being on staff there. She was evaluated in [facility] ED on 12/17/16 for bizarre behavior and transferred to [facility] where a bed was available. Per nursing staff, patient 's ex- is on staff at [facility] which led to a "conflict of interest resulting in legal matters", they requested a transfer to our facility. She has likely been noncompliant with her medications leading to decompensation. Substance abuse is likely a contributing factor however patient is not specific about recent use and urine tox dip in the ED on 12/17/16 was negative. On admission She appeared disheveled, acting detached, and bizarre. She has intense feelings about God in that she wants Him to be respected and when asked about family history she states that her mother has diabetes type II or she used to if God has cured it already. She presented as suspicious and guarded with prolonged blank stare. Her Thought process remains guarded with occasional thought blocking but overall she continues to show gradual but steady improvement. Patient is now sleeping well but remains tired. She is overall improving and and at times can be expressive and joyful relatively. [place] AXIS I: Schizophrenia, chronic paranoid type Poly substance use disorder AXIS II: Deferred AXIS III: Bacterial vaginosis AXIS IV: Unknown AXIS V: GAF 35 Medications Depakote ER 1500mg nightly Depakote ER 1500mg nightly Olanzapine 5 mg daily and 15 mg nightly Clonazepam 0.5 mg at bedtime Treatments Patient is being provided with a high degree of safety through our unit structure and active adult engagement provided by our mental health professionals, mental health technicians, psychiatric nurses and myself. We are focusing on developing improved coping skills and identifying stressors that may have led to current episode. We will attempt to: * Integrate into therapeutic groups, milieu and individual therapy. * Maintain in a closely monitored and structured unit * Provide low-stimulation environment * Obtain collateral data to assist in treatment planning * Assess degree of lability of affect and impulse control * Complete safety plan * Decrease frequency of relapse and need for re-hospitalization * Denies thoughts of harm to self and/or others * Establish a consistent sleep pattern * Medication effective in stabilization of mood and/or thought process * Reduce the risk of imminent harm to self and/or others by providing a safe environment * Tolerates medication without side effects Patient will be on the following psychiatric medications: Depakote ER 1500mg nightly Olanzapine 5 mg daily and 15 mg nightly Clonazepam 0.5 mg at bedtime Education: Educate patient about recreational drug use as an etiology Educate about metabolic etiologies related to obesity Patient's legal status Patient is on a 90 day LR O +30 days involuntary treatment hold. Patient will be given the opportunity to talk to her rotary shear worker helper and the measurer machine Anticipated number of hospital days to achieve above goals: 7 Disposition: Home Clayton Cash MD Jan 12, 2017 15:10
[2017-01-12 19:00] VITALS: BP 112/76; PULSE 78; RESP 16
[2017-01-12] MEDS: Divalproex (QD) 500 mg ER24 Tablet PO SCH (21:22)
--- NOTE | 2017-01-12 21:41 | NUR ---
OBSERVATIONS Pt was pleasant and cooperative with staff, appropriate and social with peers. Pt was more vocal and easier to converse with than on previous shifts. Pt participated in groupds. Pt ate all meals and snacks. Pt showered and laundered clothing. maintained Q15 safety checks as directed.
--- NOTE | 2017-01-12 21:59 | NUR ---
NURSING NOTE [id number] Mood: "fine" Affect: pleasant, bright Behavior: social w/peers, spent time w/peers on the patio, watched TV, med compliant Thought processes: pt. speaking in clear voice at normal volume, denies AH/VH, denies anxiety or depression. Reports she is eager to discharge and be back with her family and get back to cooking for them.
--- NOTE | 2017-01-13 06:10 | NUR ---
Sleep 11p-7a Adequate sleep through the night with no noted distress or awakening per protocol checks. Total sleep 7.5+ hours.
--- NOTE | 2017-01-13 06:24 | NUR ---
Observations 1900 - 0700 Pt was observed to be flat, guarded, a little brighter when engaged and was out on the unit most of the evening. Pt was pleasant, polite and cooperative when approached. Pt maintained behavior throughout the shift. Pt speech and eye contact was ok. Pt watched some TV with peers before bed. Pt ate snack. Pt first appeared asleep at 2230 and has slept through the night. Pt was observed every 15 minutes through the night as ordered.
--- NOTE | 2017-01-13 12:37 | PCM.PNPSY ---
Subjective Date of Service Jan 13, 2017 Subjective I spent 30 minutes both reviewing treatment plan with our clinical team, interviewing the patient and providing supportive/educational psychotherapy. I spent more than 50% of the time counseling the patient. I reviewed the treatment plan with the patient and discussed options available including the potential risks, benefits and side effects. [place] repeats that she feels a slight improvement in thought organization and mood stability. She denies auditory hallucinations. She states she talks with God but this appeared to be appropriate in terms of her latter-day. Staff reports that she has been isolative but attempting to participate in one-to-one unit and group activities. She slept 8 hours and denies psychotic symptoms review. She feels that her depressive mood is slowly improving. She denies medication side effects. She was able to identify her medications and what they were used to treat. Mental Status Exam Appearance: Neat/well groomed Attitude: Cooperative, Guarded Behavior: Other (still latent) Affect: Restricted, Other (smiling more) Mood: Dysthymic, Anxious Thought Process/Associations: Logical/Sequential, Goal Directed, Blocking Speech Production: Paucity Speech Rate: Lags/Latency Speech Articulation: Normal Thought Content: Somatic preoccupation Danger to Self/Suicidal Ideati: None Danger to Others: None Delusions: Paranoid (Endorses) Consciousness: Alert Orientation: Person, Place, Situation Memory: Grossly Intact, Short Term Memory (Impaired) Estimate Intellectual Function: Average Basis for IQ estimate: Word use/vocabulary, Educational history (9th grade education) Attention/Concentration & Cogn: Impaired Insight: Limited Judgement: Limited Result Diagram: 01/10/17 0905 01/10/17 0905 Mental Health Plan Patient is a 31 yo female in a nearly catatonic state and a very poor historian. She has a history of schizophrenia and poly substance abuse and was transferred to the care center from [facility] [place] [facility] due to her ex-spouse being on staff there. She was evaluated in [facility] ED on 12/17/16 for bizarre behavior and transferred to [facility] [place] where a bed was available. Per nursing staff, patient 's ex- is on staff at [facility] which led to a "conflict of interest resulting in legal matters", they requested a transfer to our facility. She has likely been noncompliant with her medications leading to decompensation. Substance abuse is likely a contributing factor however patient is not specific about recent use and urine tox dip in the ED on 12/17/16 was negative. On admission She appeared disheveled, acting detached, and bizarre. She has intense feelings about God in that she wants Him to be respected and when asked about family history she states that her mother has diabetes type II or she used to if God has cured it already. She presented as suspicious and guarded with prolonged blank stare. Her Thought process remains guarded with occasional thought blocking but overall she continues to show gradual but steady improvement. Patient is now sleeping well but remains tired. She is overall improving if not at a slow pace. [place] AXIS I: Schizophrenia, chronic paranoid type Poly substance use disorder AXIS II: Deferred AXIS III: Bacterial vaginosis AXIS IV: Unknown AXIS V: GAF 35 Medications Depakote ER 1500mg nightly Depakote ER 1500mg nightly Olanzapine 5 mg daily and 15 mg nightly Clonazepam 0.5 mg at bedtime Treatments Patient is being provided with a high degree of safety through our unit structure and active adult engagement provided by our mental health professionals, mental health technicians, psychiatric nurses and myself. We are focusing on developing improved coping skills and identifying stressors that may have led to current episode. We will attempt to: * Integrate into therapeutic groups, milieu and individual therapy. * Maintain in a closely monitored and structured unit * Provide low-stimulation environment * Obtain collateral data to assist in treatment planning * Assess degree of lability of affect and impulse control * Complete safety plan * Decrease frequency of relapse and need for re-hospitalization * Denies thoughts of harm to self and/or others * Establish a consistent sleep pattern * Medication effective in stabilization of mood and/or thought process * Reduce the risk of imminent harm to self and/or others by providing a safe environment * Tolerates medication without side effects Patient will be on the following psychiatric medications: Depakote ER 1500mg nightly Olanzapine 5 mg daily and 15 mg nightly Clonazepam 0.5 mg at bedtime Education: Educate patient about recreational drug use as an etiology Educate about metabolic etiologies related to obesity Patient's legal status Patient is on a 90 day LR O +30 days involuntary treatment hold. Patient will be given the opportunity to talk to her exercise scientist and the broadcasting equipment mechanic Anticipated number of hospital days to achieve above goals: 7 Disposition: Home Clayton Cash MD Jan 13, 2017 12:37
[2017-01-13 17:10] VITALS: BP 120/73; PULSE 83; RESP 16
--- NOTE | 2017-01-13 18:12 | NUR ---
[facility] Day Shift Pt maintained behavioral control throughout the shift. Pt affect appears much brighter than noted on previous. Pt remains somewhat latent, though less so than noted on previous shifts (pt also appears more vocal with staff and peers in general). Pt spends most of the shift sitting quietly in the dining room, participating in unit activities, or resting in her room. Pt occasionally noted endorsing bizarre grandiose delusions. Pt is appropriate with staff and peers when active on the unit. Pt attended all meals and ate approx 70-100% of all meals.
--- NOTE | 2017-01-13 18:45 | NUR ---
NURS Note Dayshift Mood: Endorses anxiety 1.5/10. Denies depression. Affect: Modulates between well-modulated and flat. Thought Process/Content: "God warns us with discipline and preparation." Intermittently bizarre and tangential, focused on zoroastrian themes. At times, linear and logical. Behavior: Pt in common areas much of shift, interacting appropriately with staff and peers.
[2017-01-13] MEDS: Divalproex (QD) 500 mg ER24 Tablet PO SCH (20:16)
--- NOTE | 2017-01-14 06:01 | NUR ---
Nursing Noc Pt's boyfriend visited during the evening hours. Pt social, pleasant and cooperative on unit. Her thoughts continue as bizarre with voodoo themes. No behavioral issues. Cooperative with care. Took scheduled medication without difficulty. Adequate sleep through the night with over 7 hours.
[2017-01-14 10:00] VITALS: BP 110/73; PULSE 76; RESP 18
--- NOTE | 2017-01-14 12:30 | NUR ---
Nursing Note: "Perfectly well" is how she described her feelings and then added "All is well in my soul". She has some insight: When asked what it was that got her in here: " I was standing still and staring I was trying to comprehend my surroundings. They said I was gravely disabled I guess. I don't feel that way now". She is flat, calm, interacting with her peers,compliant with meds, and out in the unit most of shift. She reports making a call to her payee, Mita, to make sure her apt rent is being paid and "I guess people are cleaning my apt. 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 I think people wouldn't annoy me so much if I was working." Delusions continue: "God told me I could be a traffic police officer in 2 years.." and religiousity' interjecting many bible verses in our conversations
--- NOTE | 2017-01-14 13:44 | PCM.PNPSY ---
Subjective Date of Service Jan 14, 2017 Subjective I spent 30 minutes both reviewing treatment plan with our clinical team, interviewing the patient and providing supportive/educational psychotherapy. I spent more than 50% of the time counseling the patient. I reviewed the treatment plan with the patient and discussed options available including the potential risks, benefits and side effects. [place] reported a marked improvement in both thought organization and mood stability. She denies auditory hallucinations. She states she talks with God but this appeared to be appropriate in terms of her roman catholic. Staff reports that she has been participating in one-to-one unit and group activities. She slept 7 hours and denies psychotic symptoms review. She feels that her depressive mood is slowly improving. She denies medication side effects. She was able to identify her medications and what they were used to treat. Mental Status Exam Vital Signs Vital Signs Date Time Temp Pulse Resp B/P Pulse Ox O2 Delivery O2 Flow Rate FiO2 01/14/17 10:00 36.5 76 18 110/73 Appearance: Neat/well groomed Attitude: Pleasant, Cooperative Behavior: Other (still latent) Affect: Well Modulated/Appropriate, Other (smiling more) Mood: Euthymic Thought Process/Associations: Logical/Sequential, Goal Directed, Blocking Speech Production: Normal Speech Rate: Lags/Latency Speech Articulation: Normal Thought Content: Somatic preoccupation Danger to Self/Suicidal Ideati: None Danger to Others: None Delusions: Paranoid (Endorses) Consciousness: Alert Orientation: Person, Place, Date, Situation Memory: Grossly Intact Estimate Intellectual Function: Average Basis for IQ estimate: Word use/vocabulary, Educational history (9th grade education) Attention/Concentration & Cogn: Grossly Intact Insight: Limited Judgement: Limited Result Diagram: 01/10/17 0901/10/17 09 Mental Health Plan Patient is a 31 yo female in a nearly catatonic state and a very poor historian. She has a history of schizophrenia and poly substance abuse and was transferred to the care center from [facility] due to her ex-spouse being on staff there. She was evaluated in [facility] ED on 12/17/16 for bizarre behavior and transferred to [facility] where a bed was available. Per nursing staff, patient 's ex- is on staff at [facility] which led to a "conflict of interest resulting in legal matters", they requested a transfer to our facility. She has likely been noncompliant with her medications leading to decompensation. Substance abuse is likely a contributing factor however patient is not specific about recent use and urine tox dip in the ED on 12/17/16 was negative. On admission She appeared disheveled, acting detached, and bizarre. She has intense feelings about God in that she wants Him to be respected and when asked about family history she states that her mother has diabetes type II or she used to if God has cured it already. She presented as suspicious and guarded with prolonged blank stare. Her Thought process remains impaired with occasional thought blocking but overall she continues to show gradual but steady improvement. Patient is now sleeping well but remains tired. She is overall improving if not at a slow pace. During my session today she was remarkably bright and socially appropriate. There was no delay to her speech and she was aware of circumstances and beginning to future plan how to take care of herself. [place] AXIS I: Schizophrenia, chronic paranoid type Poly substance use disorder AXIS II: Deferred AXIS III: Bacterial vaginosis AXIS IV: Unknown AXIS V: GAF 40 Medications Depakote ER 1500mg nightly Depakote ER 1500mg nightly Olanzapine 5 mg daily and 15 mg nightly Clonazepam 0.5 mg at bedtime Treatments Patient is being provided with a high degree of safety through our unit structure and active adult engagement provided by our mental health professionals, mental health technicians, psychiatric nurses and myself. We are focusing on developing improved coping skills and identifying stressors that may have led to current episode. We will attempt to: * Integrate into therapeutic groups, milieu and individual therapy. * Maintain in a closely monitored and structured unit * Provide low-stimulation environment * Obtain collateral data to assist in treatment planning * Assess degree of lability of affect and impulse control * Complete safety plan * Decrease frequency of relapse and need for re-hospitalization * Denies thoughts of harm to self and/or others * Establish a consistent sleep pattern * Medication effective in stabilization of mood and/or thought process * Reduce the risk of imminent harm to self and/or others by providing a safe environment * Tolerates medication without side effects Patient will be on the following psychiatric medications: Depakote ER 1500mg nightly Olanzapine 5 mg daily and 15 mg nightly Clonazepam 0.5 mg at bedtime Education: Educate patient about recreational drug use as an etiology Educate about metabolic etiologies related to obesity Patient's legal status Patient is on a 90 day LR O +30 days involuntary treatment hold. Patient will be given the opportunity to talk to her hydraulic auto jack mechanic and the occupational health physiotherapist Anticipated number of hospital days to achieve above goals: 5 Disposition: Home Clayton Cash MD Jan 14, 2017 13:44
--- NOTE | 2017-01-14 15:04 | NUR ---
Autocad Detailer/Counselor S: I'm feeling hopeful today. O: Patient did not have any SI or HI, and has not experienced any auditory of visual hallucinations. She rated her depression at a 5, and her anxiety at a 1. A: Patient was very easy to understand, and stated that her depression levels esa when asked about her levels of depression. It was explained to her that the question will only be asked once, and it is meant to check on her wellbeing, and not to increase her levels of anxiety or depression. The patient was understanding and stated that it helped to know that. She made good eye contact and was very cooperative. P: Follow care plan and coordinate with outpatient providers. Monitor behaviors. P
--- NOTE | 2017-01-14 17:31 | NUR ---
Observations [id number] Pt much brighter in appearance and mood- pt stated that she was feeling much better- "yesterday was low, today I woke up a 10". Pt much clearer in communication and speech, with goal of communicating better and speaking more clearly for the day. Pt continues to believe she is , and spent time with peers and in the box much of the day. Pt was also observed journaling, much of which is religiously oriented. Pt attended all meals, eating 100%. She was observed every 15 minutes of shift as directed.
[2017-01-14] MEDS: Divalproex (QD) 500 mg ER24 Tablet PO SCH (20:48)
--- NOTE | 2017-01-15 05:51 | NUR ---
Nursing Noc Pt visible out on the unit. Continuing much the same. Pleasant and social on the unit. Odd stare. Took scheduled medication without issue. Broken sleep of 6 hours.
[2017-01-15] MEDS: hydrOXYzine Pamoate 25 mg Capsule PO PRN (07:30)
[2017-01-15 08:43] VITALS: BP 113/75; PULSE 87; RESP 16
--- NOTE | 2017-01-15 10:44 | PCM.PNPSY ---
Subjective Date of Service Jan 15, 2017 Subjective I spent 30 minutes both reviewing treatment plan with our clinical team, interviewing the patient and providing supportive/educational psychotherapy. I spent more than 50% of the time counseling the patient. I reviewed the treatment plan with the patient and discussed options available including the potential risks, benefits and side effects. [place] repeated that she has felt a marked improvement in both thought organization and mood stability. She denies auditory hallucinations. She states she talks with God but this appeared to be appropriate in terms of her bahai. Staff reports that she has been participating in one-to-one unit and group activities. She slept 6 hours and denies psychotic symptoms review. She feels that her depressive mood is improving. She denies medication side effects. She was able to identify her medications and what they were used to treat. Mental Status Exam Appearance: Neat/well groomed Attitude: Pleasant, Cooperative Behavior: Other (still latent) Affect: Well Modulated/Appropriate, Other (smiling more) Mood: Euthymic Thought Process/Associations: Logical/Sequential, Goal Directed, Blocking Speech Production: Normal Speech Rate: Lags/Latency Speech Articulation: Normal Thought Content: Appropriate, Hoahaoism preoccupation (patient is a devout Gnosticist) Danger to Self/Suicidal Ideati: None Danger to Others: None Delusions: Paranoid (Endorses) Consciousness: Alert Orientation: Person, Place, Date, Situation Memory: Grossly Intact Estimate Intellectual Function: Average Basis for IQ estimate: Word use/vocabulary, Educational history (9th grade education) Attention/Concentration & Cogn: Grossly Intact Insight: Limited Judgement: Limited Result Diagram: 01/10/17 0905 01/10/17 0905 Mental Health Plan Patient is a 31 yo female in a nearly catatonic state and a very poor historian. She has a history of schizophrenia and poly substance abuse and was transferred to the care center from [facility] due to her ex-spouse being on staff there. She was evaluated in [facility] ED on 12/17/16 for bizarre behavior and transferred to [facility] where a bed was available. Per nursing staff, patient 's ex- is on staff at [facility] which led to a "conflict of interest resulting in legal matters", they requested a transfer to our facility. She has likely been noncompliant with her medications leading to decompensation. Substance abuse is likely a contributing factor however patient is not specific about recent use and urine tox dip in the ED on 12/17/16 was negative. On admission She appeared disheveled, acting detached, and bizarre. She has intense feelings about God in that she wants Him to be respected and when asked about family history she states that her mother has diabetes type II or she used to if God has cured it already. She presented as suspicious and guarded with prolonged blank stare. Her Thought process remains impaired with occasional thought blocking but overall she continues to show gradual but steady improvement. Patient is now sleeping well but remains tired. She is overall improving if not at a slow pace. During my session today she was bright and socially appropriate. There was no delay to her speech and she was aware of circumstances and beginning to future plan how to take care of herself. [employer] AXIS I: Schizophrenia, chronic paranoid type Poly substance use disorder AXIS II: Deferred AXIS III: Bacterial vaginosis AXIS IV: Unknown AXIS V: GAF 40 Medications Depakote ER 1500mg nightly Depakote ER 1500mg nightly Olanzapine 5 mg daily and 15 mg nightly Clonazepam 0.5 mg at bedtime Treatments Patient is being provided with a high degree of safety through our unit structure and active adult engagement provided by our mental health professionals, mental health technicians, psychiatric nurses and myself. We are focusing on developing improved coping skills and identifying stressors that may have led to current episode. We will attempt to: * Integrate into therapeutic groups, milieu and individual therapy. * Maintain in a closely monitored and structured unit * Provide low-stimulation environment * Obtain collateral data to assist in treatment planning * Assess degree of lability of affect and impulse control * Complete safety plan * Decrease frequency of relapse and need for re-hospitalization * Denies thoughts of harm to self and/or others * Establish a consistent sleep pattern * Medication effective in stabilization of mood and/or thought process * Reduce the risk of imminent harm to self and/or others by providing a safe environment * Tolerates medication without side effects Patient will be on the following psychiatric medications: Depakote ER 1500mg nightly Olanzapine 5 mg daily and 15 mg nightly Clonazepam 0.5 mg at bedtime Education: Educate patient about recreational drug use as an etiology Educate about metabolic etiologies related to obesity Patient's legal status Patient is on a 90 day LR O +30 days involuntary treatment hold. Patient will be given the opportunity to talk to her apprentice architect and the crystal gazer Anticipated number of hospital days to achieve above goals: 3 Disposition: Home Clayton Cash MD Jan 15, 2017 10:44
--- NOTE | 2017-01-15 13:35 | NUR ---
NURSING NOTE: "like shit" is how she describes how she feels. When asked if this was emotional or physical, says 'well they're pretty much the same... She expresses frustration about being here, "The longer I'm here the worse I'm going to get.' She has talked with her landlord who wants her to call her payee for rent and she has called [place] to talk to her payee and is waiting for a call back. She is grateful for an apt to go back to and says that people from her denominational are getting it ready for her. "I think I need to get a job. That is a better option (to dealing with her payee). She continues very flat , mumbling at times and irritable with having to repeat. She denies SI/HI or other thought disturbance. Still religiously preoccupied Addendum: 01/15/17 at 1416 by SHELIA TALAMANTES RN Pt later came up to me to apologize to me for being 'abrupt' earlier. She is attending all groups. , eating well, and is slightly latent Addendum: 01/15/17 at 1418 by SHELIA TALAMANTES RN Pt later came to apologize for being abrupt earlier. She is attending groups, appropriately groomed, and eating well
[2017-01-15] MEDS: Alum-Mag Hydrox-Simeth 30 mL Suspension PO PRN (15:51)
[2017-01-15] MEDS: Divalproex (QD) 500 mg ER24 Tablet PO SCH (20:57)
--- NOTE | 2017-01-16 04:57 | NUR ---
Observations 1900 - 0700 Pt affect and mood was unchanged from previous shifts and was out on the unit most of the evening. Pt was pleasant, polite and cooperative when approached. Pt maintained behavior throughout the shift. Pt speech and eye contact was a little improved. Pt attended wrap up group and stated that she met her daily goal. Pt ate snack. Pt first appeared asleep at 2215 and has slept through the night. Pt was observed every 15 minutes through the night as ordered.
--- NOTE | 2017-01-16 05:56 | NUR ---
Sleep Adequate sleep through the night with no noted distress or awakening per protocol checks. Total sleep over 7 hours.
--- NOTE | 2017-01-16 13:20 | NUR ---
nursing note: Pt has been visible on the unit, interacting with patients, and reading the Bible over someone who was feeling bad. She is flat but communicating with a little less latency. Finally got through to her CM @ [place] and says she would be picked up on Saturday, 01/18, at 1030. She went to group to work on safety plan and triggers. Her appetite is good, hygiene adequate
[2017-01-16 13:28] VITALS: BP 110/70; PULSE 78; RESP 16
--- NOTE | 2017-01-16 14:30 | PCM.PNPSY ---
Subjective Date of Service Jan 16, 2017 Subjective I spent 30 minutes both reviewing treatment plan with our clinical team, interviewing the patient and providing supportive/educational psychotherapy. I spent more than 50% of the time counseling the patient. I reviewed the treatment plan with the patient and discussed options available including the potential risks, benefits and side effects. Virginia repeated that she has felt a marked improvement in both thought organization and mood stability. She denies auditory hallucinations. She states she talks with God but this appears to be appropriate in terms of her buddhism. Staff reports that she has been participating well in one-to-one unit and group activities. She slept 7 hours and denies psychotic symptoms review. She feels that her depressive mood is improving. She denies medication side effects. She was able to identify her medications and what they were used to treat. Mental Status Exam Vital Signs Vital Signs Date Time Temp Pulse Resp B/P Pulse Ox O2 Delivery O2 Flow Rate FiO2 01/16/17 13:28 36.8 78 16 110/70 Appearance: Neat/well groomed Attitude: Pleasant, Cooperative Behavior: No unusual behavior Affect: Well Modulated/Appropriate, Other (smiling more) Mood: Euthymic Thought Process/Associations: Logical/Sequential, Goal Directed Speech Production: Normal Speech Rate: Normal Speech Articulation: Normal Thought Content: Appropriate, Yazidi preoccupation (patient is a devout Latter-Day) Danger to Self/Suicidal Ideati: None Danger to Others: None Consciousness: Alert Orientation: Person, Place, Date, Situation Memory: Grossly Intact Estimate Intellectual Function: Average Basis for IQ estimate: Word use/vocabulary, Educational history (9th grade education) Attention/Concentration & Cogn: Grossly Intact Insight: Limited Judgement: Good Result Diagram: 01/10/17 0901/10/17 09 Mental Health Plan Patient is a 31 yo female in a nearly catatonic state and a very poor historian. She has a history of schizophrenia and poly substance abuse and was transferred to the care center from [facility] due to her ex-spouse being on staff there. She was evaluated in [facility] ED on 12/17/16 for bizarre behavior and transferred to [facility] where a bed was available. Per nursing staff, patient 's ex- is on staff at [facility] which led to a "conflict of interest resulting in legal matters", they requested a transfer to our facility. She has likely been noncompliant with her medications leading to decompensation. Substance abuse is likely a contributing factor however patient is not specific about recent use and urine tox dip in the ED on 12/17/16 was negative. On admission She appeared disheveled, acting detached, and bizarre. She has intense feelings about God in that she wants Him to be respected and when asked about family history she states that her mother has diabetes type II or she used to if God has cured it already. She presented as suspicious and guarded with prolonged blank stare. Her Thought process is no longer appear impaired, she continues to show steady improvement. Patient is now sleeping well but remains tired. She is overall improving if not at a slow pace. During my session today she was again bright and socially appropriate. There was no delay to her speech and she was aware of circumstances and beginning to future plan how to take care of herself. Anticipate discharge in 48-72 hours. [place] AXIS I: Schizophrenia, chronic paranoid type Poly substance use disorder AXIS II: Deferred AXIS III: Bacterial vaginosis AXIS IV: Unknown AXIS V: GAF 40 Medications Depakote ER 1500mg nightly Depakote ER 1500mg nightly Olanzapine 5 mg daily and 15 mg nightly Clonazepam 0.5 mg at bedtime Treatments Patient is being provided with a high degree of safety through our unit structure and active adult engagement provided by our mental health professionals, mental health technicians, psychiatric nurses and myself. We are focusing on developing improved coping skills and identifying stressors that may have led to current episode. We will attempt to: * Integrate into therapeutic groups, milieu and individual therapy. * Maintain in a closely monitored and structured unit * Provide low-stimulation environment * Obtain collateral data to assist in treatment planning * Assess degree of lability of affect and impulse control * Complete safety plan * Decrease frequency of relapse and need for re-hospitalization * Denies thoughts of harm to self and/or others * Establish a consistent sleep pattern * Medication effective in stabilization of mood and/or thought process * Reduce the risk of imminent harm to self and/or others by providing a safe environment * Tolerates medication without side effects Patient will be on the following psychiatric medications: Depakote ER 1500mg nightly Olanzapine 5 mg daily and 15 mg nightly Clonazepam 0.5 mg at bedtime Education: Educate patient about recreational drug use as an etiology Educate about metabolic etiologies related to obesity Patient's legal status Patient is on a 90 day LR O +30 days involuntary treatment hold. Patient will be given the opportunity to talk to her diamond wheel edger and the section repairer Anticipated number of hospital days to achieve above goals: 2 Disposition: Home Clayton Cash MD Jan 16, 2017 14:30
--- NOTE | 2017-01-16 18:13 | NUR ---
[facility] Day Shift Pt maintained behavioral control throughout the shift. Pt affect appears brighter than noted on previous shifts. Pt remains somewhat latent, though much less so than noted on previous shifts. Pt spends most of the shift sitting quietly in the dining room, participating in unit activities, or resting in her room. Pt occasionally noted endorsing bizarre grandiose delusions. Pt is appropriate with staff and peers when active on the unit. Pt attended all group activities and participated actively. Pt attended all meals and ate approx 100% of all meals.
--- NOTE | 2017-01-16 19:42 | NUR ---
mall manager/Counselor: S: "I get worse the longer I stay in here." O: Patient slept 7+ hours last night per staff. Patient denies S/I and H/I. She also denies auditory and visual hallucinations. Depression is 0/10 and anxiety is 2/10. Patient's landlord agreed to allow patient to pay rent Saturday upon discharge from the hospital. A: Patient is cooperative, unkept, disheveled, hopeful, limited insight, limited judgment. P: Follow care plan, coordinate with out-patient providers.
[2017-01-16] MEDS: Divalproex (QD) 500 mg ER24 Tablet PO SCH (20:22)
--- NOTE | 2017-01-16 22:27 | NUR ---
NURSING NOTE [id number] Mood: "fine" Affect: pleasant, smiling and bright in conversation Behavior: continues to be social w/peers, attending all groups, med compliant, made several phone calls. Thought processes: reports she is looking forward to discharging soon, denies all safety issues and denies AH/VH/SI/HI. Laughed sarcastically when this mortgage loan underwriter asked if she was depressed.
--- NOTE | 2017-01-17 12:39 | NUR ---
Nursing Note [id number] Mood, Behavior S/O: Pt has good appetite. Pleasant & cooperative with medications & cares. Pt is changing room to 230 with a roommate. Conversation tracking clear & organized with normal rate & rhythm. Pt slightly soft at times, but will repeat phrases not understood. Pt jokes with peers & staff. Pt has attended groups today. She states one group was "about emotions." Pt smiles as she states she will be going home tomorrow. A: Pt has been improving. P: Provide supportive environment. Monitor medications & effects.
[2017-01-17 12:59] VITALS: BP 107/64; PULSE 76; RESP 16
--- NOTE | 2017-01-17 14:08 | PCM.PNPSY ---
Subjective Date of Service Jan 17, 2017 Subjective I spent 30 minutes both reviewing treatment plan with our clinical team, interviewing the patient and providing supportive/educational psychotherapy. I spent more than 50% of the time counseling the patient. I reviewed the treatment plan with the patient and discussed options available including the potential risks, benefits and side effects. [place] repeated that she has felt a marked improvement in both thought organization and mood stability. She denies auditory hallucinations. Staff reports that she has been participating well in one-to-one unit and group activities. She slept 7 hours and denies psychotic symptoms review. She feels that her depressive mood is improving. She denies medication side effects. She was able to identify her medications and what they were used to treat Mental Status Exam Vital Signs Vital Signs Date Time Temp Pulse Resp B/P Pulse Ox O2 Delivery O2 Flow Rate FiO2 01/17/17 12:59 36.1 76 16 107/64 Appearance: Neat/well groomed Attitude: Pleasant, Cooperative Behavior: No unusual behavior Affect: Well Modulated/Appropriate, Other (smiling more) Mood: Euthymic Thought Process/Associations: Logical/Sequential, Goal Directed Speech Production: Normal Speech Rate: Normal Speech Articulation: Normal Thought Content: Appropriate, Jain preoccupation (patient is a devout Judaism) Danger to Self/Suicidal Ideati: None Danger to Others: None Consciousness: Alert Orientation: Person, Place, Date, Situation Memory: Grossly Intact Estimate Intellectual Function: Average Basis for IQ estimate: Word use/vocabulary, Educational history (9th grade education) Attention/Concentration & Cogn: Grossly Intact Insight: Limited Judgement: Good Mental Health Plan Patient is a 31 yo female in a nearly catatonic state and a very poor historian. She has a history of schizophrenia and poly substance abuse and was transferred to the care center from [facility] due to her ex-spouse being on staff there. She was evaluated in [facility] ED on 12/17/16 for bizarre behavior and transferred to [facility] where a bed was available. Per nursing staff, patient 's ex- is on staff at [facility] which led to a "conflict of interest resulting in legal matters", they requested a transfer to our facility. She has likely been noncompliant with her medications leading to decompensation. Substance abuse is likely a contributing factor however patient is not specific about recent use and urine tox dip in the ED on 12/17/16 was negative. On admission She appeared disheveled, acting detached, and bizarre. She has intense feelings about God in that she wants Him to be respected and when asked about family history she states that her mother has diabetes type II or she used to if God has cured it already. She presented as suspicious and guarded with prolonged blank stare. Her Thought process is no longer appear impaired, she continues to show steady improvement. Patient is now sleeping well but remains tired. She is overall improving if not at a slow pace. During my session today she was again bright and socially appropriate. There was no delay to her speech and she was aware of circumstances and beginning to future plan how to take care of herself. Anticipate discharge in 24 hours. [place] AXIS I: Schizophrenia, chronic paranoid type Poly substance use disorder AXIS II: Deferred AXIS III: Bacterial vaginosis AXIS IV: Unknown AXIS V: GAF 40 Medications Depakote ER 1500mg nightly Depakote ER 1500mg nightly Olanzapine 5 mg daily and 15 mg nightly Clonazepam 0.5 mg at bedtime Treatments Patient is being provided with a high degree of safety through our unit structure and active adult engagement provided by our mental health professionals, mental health technicians, psychiatric nurses and myself. We are focusing on developing improved coping skills and identifying stressors that may have led to current episode. We will attempt to: * Integrate into therapeutic groups, milieu and individual therapy. * Maintain in a closely monitored and structured unit * Provide low-stimulation environment * Obtain collateral data to assist in treatment planning * Assess degree of lability of affect and impulse control * Complete safety plan * Decrease frequency of relapse and need for re-hospitalization * Denies thoughts of harm to self and/or others * Establish a consistent sleep pattern * Medication effective in stabilization of mood and/or thought process * Reduce the risk of imminent harm to self and/or others by providing a safe environment * Tolerates medication without side effects Patient will be on the following psychiatric medications: Depakote ER 1500mg nightly Olanzapine 5 mg daily and 15 mg nightly Clonazepam 0.5 mg at bedtime Education: Educate patient about recreational drug use as an etiology Educate about metabolic etiologies related to obesity Patient's legal status Patient is on a 90 day LR O +30 days involuntary treatment hold. Patient will be given the opportunity to talk to her premises technician and the county judge Anticipated number of hospital days to achieve above goals: 1 Disposition: Home Clayton Cash MD Jan 17, 2017 14:07
--- NOTE | 2017-01-17 17:44 | NUR ---
Observations 0900 - 2130 Pt affect and mood unchanged from previous shifts. Pt speech and eye contact was ok. Pt was pleasant and friendly upon approach. Pt is polite and cooperative. Pt maintained behavior control throughout the shift. Pt attended community meeting and set a daily goal. Pt attended both groups. Pt is social with select peers. Pt attended meals in D.R. and has a good appetite. Pt ate snack. Pt took a shower. Pt rested in her room and socialized with peers during free time. Pt was observed every 15 minutes as ordered throughout the shift.
--- NOTE | 2017-01-17 18:29 | NUR ---
consulting services manager/Counselor: S: "I will be happy that I'm not here this weekend." O: Patient slept 7+ hours last night per staff. Patient denies S/I and H/I. She also denies auditory and visual hallucinations. Depression is 0/10 and anxiety is 0/10. Patient attended both group sessions today. A: Patient is cooperative, unkept, disheveled, hopeful, fair insight, fair judgment. P: Follow care plan, coordinate with out-patient providers.
[2017-01-17] MEDS: Divalproex (QD) 500 mg ER24 Tablet PO SCH (21:06)
--- NOTE | 2017-01-17 22:27 | NUR ---
NURS Note [id number] Mood: "I'm doing pretty good." Denies anxiety, depression. Affect: Restricted Thought Process/Content: "Sometimes it feels good to hurt yourself or others with the truth." Election Judge asked pt if she was thinking of harming herself or others and she denies SI and HI. Denies AH, VH. Thought Process is mostly linear and logical. Behavior: Appropriate. Up in common areas much of shift.
[2017-01-18] MEDS: hydrOXYzine Pamoate 25 mg Capsule PO PRN (02:46)
[2017-01-18] MEDS: LORazepam 1 mg Tablet PO PRN (02:46)
--- NOTE | 2017-01-18 05:20 | NUR ---
Nursing Noc Pt noted to be up a couple of times through the night reporting being awoken by noisy patients. Requested and received PRN sleep and anxiety aid, but noted to be awake since [address] Noted to be more conversational and reality based then previously. Continuing to monitor mood behavior and emotional state. CP
--- NOTE | 2017-01-18 10:37 | PCM.DIMED ---
Discharge Instructions Date of Service Jan 18, 2017 Dates of Hospitalization December 20, 2016 at 14:57 Discharge Diagnosis Discharge Diagnosis Schizophrenia Paranoid type Polysusbstance Use DO Diet Discharge Diet: No restrictions Activity Discharge Activity: No restrictions Jose Juan Cunningham DO Jan 18, 2017 10:37
[2017-01-18] MEDS ORDERED: CHOL100043 PO (10:42)
[2017-01-18] MEDS ORDERED: KLO5T PO (10:42)
[2017-01-18] MEDS ORDERED: HALO10TA PO (10:42)
[2017-01-18] MEDS ORDERED: BENZ1TAB7 PO (10:42)
[2017-01-18] MEDS ORDERED: OLAN15TA17 PO (10:42)
[2017-01-18] MEDS ORDERED: DIVA500T14 PO (10:42)
[2017-01-18] MEDS ORDERED: HYDR50CA3 PO (10:42)
[2017-01-18] MEDS ORDERED: OLAN5TAB4 PO (10:46)
--- NOTE | 2017-01-18 10:50 | PCM.DIMED ---
Discharge Instructions Date of Service Jan 18, 2017 Dates of Hospitalization December 20, 2016 at 14:57 Discharge Diagnosis Discharge Diagnosis . [place] AXIS I: Schizophrenia, chronic paranoid type Poly substance use disorder AXIS II: Deferred AXIS III: Bacterial vaginosis AXIS IV: Unknown AXIS V: GAF 40 Medication Instructions Additional med instructions I Strongly encouraged patient to follow up with outpatient care: 1-Recommended patient takes medication as prescribed and not alter this unless under the direct care of a provider. 2-Recommend client refrain from recreational drugs and alcohol while taking psychiatric medications. 3-Recommend client start a 12 step program to deal with issues of addiction. 4-Recommend patient attempt to find a therapist or group to deal with impulse control and interpersonal relationship conflicts Diet Discharge Diet: No restrictions Activity Discharge Activity: No restrictions Call your provider Call your provider for: Fever or Chills Patient Instructions Patient Instructions [facility] and medication management. Appointment to be scheduled per case liner. Follow-up with PCP in: 2 weeks Clayton Cash MD Jan 18, 2017 10:50 Olanzapine 5 mg daily and 15 mg nightly Clonazepam 0.5 mg at bedtime Medication Instructions Additional med instructions I Strongly encouraged patient to follow up with outpatient care: 1-Recommended patient takes medication as prescribed and not alter this unless under the direct care of a provider. 2-Recommend client refrain from recreational drugs and alcohol while taking psychiatric medications. 3-Recommend client start a 12 step program to deal with issues of addiction. 4-Recommend patient attempt to find a therapist or group to deal with impulse control and interpersonal relationship conflicts Diet Discharge Diet: No restrictions Activity Discharge Activity: No restrictions Call your provider Call your provider for: Fever or Chills Patient Instructions Patient Instructions Client [facility] with [facility] for counseling and medication management. Appointment to be scheduled per case liner. Follow-up with PCP in: 2 weeks Clayton Cash MD Jan 18, 2017 10:50
--- NOTE | 2017-01-18 11:35 | DIS ---
[address] [address] DISCHARGE SUMMARY PATIENT: KARLO SMITH : 1985 MR#: [id number] ADMIT: 12/20/2016 JOB ID: [id number] DIS: 01/18/2017 IDENTIFICATION: The patient is a 31-year-old female with history of schizophrenia and polysubstance abuse transferred to the Care Center from [facility]. REASON FOR ADMISSION: Client transferred from some [facility] due to a relative being on staff there. She had been noncompliant with her medications using street drugs and had had severe psychosis and depression to the point of catatonia. SUMMARY OF PRESENT ILLNESS: The patient is a 31-year-old, white female, presenting in a near catatonic state with a history of schizophrenia and polysubstance abuse. She has been noncompliant with medications leading to decompensation. Substance abuse was likely a contributing factor. She, at the time of admission, appeared disheveled, was extremely detached and acting bizarrely. She had mu-ism delusions about God talking directly to her and telling her to do things. She had significant symptoms of suspiciousness and thought blocking. HOSPITAL COURSE: Client is admitted to our unit and was provided with a high degree of safety through the structure and active adult engagement she received here. We had her participate in one-to-one unit and group activities focused on improving coping skills, as well as helping her improve reality based thinking. She was stabilized on a combination of medications including Depakote, Klonopin and olanzapine. With this combination and the therapy on our unit, she showed a gradual but slow improvement. Over the past three days, she has had a resolution of psychosis and depression and has been interacting appropriately. MENTAL STATUS EXAMINATION: Client neatly dressed. Good eye contact. Behavior calm, pleasant, cooperative. Mood euthymic. Affect congruent. Normal intensity. Thought process: Coherent, logical and spontaneous. No signs of psychosis. Thought content: Themes of future planning, how to take care of herself. Denied auditory hallucinations. Insight and judgment baseline. Impulse control highly contained. Reality testing intact. Competence to handle current stressors is appropriate. DISCHARGE DIAGNOSIS: AXIS I 1. Schizophrenia, chronic, paranoid type. 2. Polysubstance abuse disorder. AXIS II Defer. AXIS III None. AXIS IV Unknown. AXIS V Current global assessment of functioning equal to 45. DISCHARGE PLAN: Followup was client is already established at [facility] with a provider and a therapist. She will be following up with an appointment there today. DISCHARGE MEDICATIONS: 1. Depakote 1500 h.s. 2. Zyprexa 5 daily, 15 h.s. 3. Klonopin 0.5 h.s. ACTIVITY AND DIET: Recommend client refrain from recreational drugs and alcohol while taking psychiatric medications. Recommend that she not change medications unless under the supervision of a physician. CONDITION ON DISCHARGE: Good. PROGNOSIS: Good.
--- NOTE | 2017-01-18 12:58 | NUR ---
Nursing: Day shift and discharge: Virginia was dressed neatly, alert and oriented as she came out for breakfast this a.m. She is aware that she will be discharged today. Field Service Rep went through discharge forms and information with Virginia. She was cooperative with process. Her case technician from [place] arrived at 10:30 to pick out hand Virginia and transport her to her appointment at 11:00. Bu 1110, Virginia was ready to go with all her belongings. She left the unit accompanied by Aniyah case technician at 1110. Virginia denied anxiety, depression ro suicidal ideation as she left. However, she still has delulsional ideas as evidenced in her statement to staff just this morning that the skirt she was wearing, "God gave it to me". No discussion or statements this a.m. about being . All outcomes except cognitive optimal function met. The ongoing outcome will be addressed by F/U treatment team.
[2017-01-18 13:55] VITALS: BP 114/72; PULSE 72; RESP 16
--- NOTE | 2017-01-18 19:31 | NUR ---
safety and security manager/Counselor: S: "I will be happy that I'm not here this weekend." O: Patient slept 6.75 hours last night per staff. Patient denies S/I and H/I. She also denies auditory and visual hallucinations. Depression is 0/10 and anxiety is 0/10. Out-patient appointment: Aniyah Smith, counselor at [facility], 01/18/17 at 11:00am. A: Patient is cooperative, disheveled, hopeful, fair insight, fair judgment. P: Follow care plan, coordinate with out-patient providers.
== END 2017-01-18 11:10 | disposition home or self-care (01) | DRG 885 ==
LOC: MHC 14:57
PROVIDERS: ADMIT Psychiatry & Neurology Psychiatry; ATTEND Psychiatry & Neurology Psychiatry
DX: F20.0 Paranoid schizophrenia (principal); Z91.14 Patient's other noncompliance with medication regimen; F19.10 Other psychoactive substance abuse, uncomplicated; N76.0 Acute vaginitis

== ENCOUNTER 2017-01-23 12:10 | Emergency (ER) | payer MEDICAID, OTHER ==
[~2017-01-23 12:10] MED LIST changes: -BENZ1TAB7 PO; +CHOL100043 PO; -DEP250A PO; -DEP500A PO; +DIVA500T14 PO; -HAL5 PO; +HYDR50CA3 PO; +OLAN15TA17 PO; +OLAN5TAB4 PO
[2017-01-23 12:13] VITALS: BP 140/90; PULSE 103; RESP 18; O2SAT 98
--- NOTE | 2017-01-23 13:08 | ED.REPORT ---
HPI-Rash / Abscess Date of Service Jan 23, 2017 ED Provider: Darron Viera MD Pt is a 31 year old female with a hx of schizophrenia and polysubstance abuse presenting to the ED complaining of pain and skin redness and swelling in her groin onset in the last few weeks while she was in the care center. She denies any previous similar symptoms or other symptoms at this time. Nursing Notes Stated Complaint: GROIN ABSCESS Chief Complaint: Skin Rash/Abscess Nursing Notes Reviewed: Yes ([employer] not reconciled) Allergies: Coded Allergies: Sulfa (Sulfonamide Antibiotics) (Verified Allergy, Severe, 06/29/15) Scheduled Cholecalciferol (Vitamin D3) (Vitamin D) 1,000 Unit Tablet 5,000 UNIT PO DAILY Divalproex ER (Divalproex ER) 500 Mg Tab.er.24h 1,500 MG PO HS Olanzapine (Zyprexa) 5 Mg Tablet 5 MG PO BID Olanzapine (Olanzapine) 15 Mg Tablet 15 MG PO HS Olanzapine (Zyprexa) 5 Mg Tablet 5 MG PO DAILY Scheduled PRN Hydroxyzine Pamoate (HydrOXYzine Pamoate) 50 Mg Capsule 50 MG PO TID PRN PRN For Itching General Time Seen by MD: 12:50 Chief Complaint Abscess Hx Obtained From: Patient Arrived By: Walk-in Onset Occurred: More than a week ago... (2 weeks) Symptom Duration: Since onset Location: : Inguinal Quality: Painful Severity: Current: Moderate Severity: Maximum: Severe Recent Healthcare: No recent hospitalization, Recent doctor visit Similar Sx Previous: No Past Medical History Past Medical History Notes: Recent admission with discharge January 18 for history of schizophrenia and polysubstance abuse Past Medical History 1) Schizophrenia, adenoid type 2) History of polysubstance abuse Past Surgical History Unknown Smoking History Light Tobacco Smoker Social History Drug Use: Meth, Other Ambulatory Status Independent Review of Systems Constitutional: Denies: Weakness - generalized Respiratory: Denies: Shortness of breath GI: Denies: Vomiting Skin: Reports Rash, Reports Swelling Complete sys rev & neg: except as marked. Physical Exam Initial Vital Signs Vital Signs (First) Date Time Temp Pulse Resp B/P Pulse Ox O2 Delivery O2 Flow Rate FiO2 01/23/17 12:13 36.8 103 18 140/90 98 Room Air Initial VS: Reviewed, Vital signs normal, Vital signs abnormal (HR 103) Head / Eyes: Atraumatic, Normocephalic, PERRL ENT: Mucous membranes moist, Conjunctiva normal, No scleral icterus Respiratory: Breath sounds normal, Clear to auscultation, No respiratory distress Cardiovascular: Regular rate & rhythm, Heart sounds normal, Intact distal pulses Abdomen / GI: Soft, Non-tender, No guarding, No rebound, No distention Extremities: Vascular intact, Neuro intact, No swelling, No tenderness Neurologic: Alert, Oriented, Nonfocal General/Constitutional: Awake, Alert Organized historian. Skin: Warm, Dry, Intact 3 cm abscess right groin. Concerning for MRSA. Small amount of surounding erythema. Psychiatric: Mood NL, Cognitive function NL, Judgment/insight NL, Thought content NL Abnormal Mood/Affect: Positive: Flat affect Interpretation & Diagnostics Lab Results Interpretation Lab Results Interpretation: wound Culture pending Procedures Incision & Drainage Abscess I & D Abscess: Sebaceous cyst 2cm Time: 13:50 Procedure Performed by: ED physician Consent / Setup / Site Prep: Consent from patient, Time-out performed, Hand hygiene observed, Stand sterile technique, Standard surgical scrub, Sterile drapes applied Location of Abscess: right groin Skin Preparation Agent: Betadine Local Anesthesia: Lidocaine 2% (With epi) Incised Abscess with Scalpel: #11 Pus Drained: No purulence (sebaceous material removed) Irrigation: Yes, Copious Post-Procedure / Complications: Packing placed, Culture obtained, Gram stain ordered, Dressing applied, No complications, Condition improved, Tolerated procedure well, Patient stable Re-Eval/Medical Decision Med Decision/Clinical Course This is a 31-year-old female presents with swelling and painful lump in her right groin. Concerned about an abscess. Reports a lump was noted a few weeks ago but has gotten bigger and more uncomfortable. She denies fever or infectious symptoms, she has probably denies prior history of MRSA. On exam she has a small area of swelling in the right groin concerning for a possible abscess. There is questionable, trace surrounding cellulitis. It is not appeared to be typical folliculitis. There are no other lesions. The patient does not appear toxic. Under local anesthesia the area of swelling was incised, with sebaceous material obtained. I really did not appreciate lazaro purulence, but a culture was obtained. The patient did receive a single dose of clindamycin as initial concern was a possible cutaneous abscess, and this was chosen given the patient' s history of Bactrim allergy. However given the absence of rope. Material, given the presence of what appears to be a sebaceous cyst which was removed, I am not finding indication that additional and a boxer really needed. Patient did not require request or need any pain medicine, and the patient does have a history of substance abuse such that I would avoid controlled substances without a clear, objective medical indication. Patient is entirely comfortable with this. Routine wound care is discussed. The patient is discharged in good condition Source of Hx: Old records Re-Evaluation/Progress : Time of Eval: 13:50 Patient Status: Condition improved Re-Evaluation/Progress Note: Performed I&D. Pt tolerated procedure well. Discussed plan for discharge. Pt understands and agrees. Counseled Regarding: Diagnosis, Lab results, Need for follow-up, When/why to return to ED Discharge & Departure Impression: Primary Impression: Sebaceous cyst Disposition: Home Discharge Condition All VS Reviewed: Yes Condition: Improved Additional Instructions: 1. This was a sebaceous cyst that was drained. 2. There is a chance that it may re-occur. If it does, follow up with Dr. Lindsay. Call for an appointment and they can remove it fully in the office. 3. Keep the wound clean. OK to shower, but no swimming until healed. 4. Return if any signs of infection develop - fever, redness, increasing pain/ swelling. Referrals: [facility] (PCP) Faviola Lindsay MD Attestation Portions of this note were transcribed by Elaine Clayton. I, Dr. Viera personally performed the history, physical exam and medical decision-making; I reviewed and confirmed the accuracy of the information in the transcribed note. Signed by: Sigifredo Ball, 01/23/17 at 1423. copies to: Faviola Lindsay MD; [facility] Darron Viera MD Jan 23, 2017 13:08 ELAINE CLAYTON Jan 23, 2017 13:16
[2017-01-23] MEDS ORDERED: Lidocaine 2%-Epi 1:100,000 20 mL Inj SUBQ ONE (13:20)
== END 2017-01-23 14:55 | disposition home or self-care (01) ==
LOC: SED 12:10
DX: L72.3 Sebaceous cyst (principal); F17.200 Nicotine dependence, unspecified, uncomplicated; Z79.899 Other long term (current) drug therapy; Z88.2 Allergy status to sulfonamides

== ENCOUNTER 2017-01-27 12:33 | Emergency (ER) | payer OTHER ==
[~2017-01-27] VITALS: Ht 162.6 cm; Wt 90.9 kg
[~2017-01-27 12:33] MED LIST changes: -CHOL100043 PO; -OLAN5TAB4 PO
[2017-01-27 12:34] VITALS: BP 126/80; PULSE 85; RESP 16; O2SAT 97
--- NOTE | 2017-01-27 13:02 | ED.REPORT ---
HPI-Rash / Abscess Date of Service Jan 27, 2017 ED Provider: Kurt Najera DO The patient is a 31 year-old female with a history of schizophrenia and polysubstance abuse presenting to the ED complaining of color changes in her right groin abscess s/p I&D on 01/23/17. She had the sebaceous cyst drainage in the ER by Dr. Viera last week and had a course of Clindamycin. Her wound culture grew Bacteroides. Since then, she notes that the wound turns saab and is afraid of a worsening infection. She denies any swelling, pain, discharge, urinary symptoms, fever, or chills. She has an appointment with the [facility] on 02/15. Nursing Notes Stated Complaint: ABSCESS ON RIGHT THIGH/GROIN AREA Chief Complaint: Skin Rash/Abscess Nursing Notes Reviewed: Yes Allergies: Coded Allergies: Sulfa (Sulfonamide Antibiotics) (Verified Allergy, Severe, 06/29/15) Scheduled Divalproex ER (Divalproex ER) 500 Mg Tab.er.24h 1,500 MG PO HS Olanzapine (Olanzapine) 15 Mg Tablet 15 MG PO HS Scheduled PRN Hydroxyzine Pamoate (HydrOXYzine Pamoate) 50 Mg Capsule 50 MG PO TID PRN PRN For Itching General Time Seen by MD: 12:40 Chief Complaint Abscess Hx Obtained From: Patient Arrived By: Walk-in Onset Occurred: 1 week ago Symptom Duration: Since onset Location: : Inguinal Quality: Same as prior Severity: Current: No pain currently Severity: Maximum: Moderate Associated with: Denies Abdominal pain, Denies Fever, Denies Leg swelling, Denies Nausea, Denies Red streaking, Denies Shaking chills, Denies Vomiting, Denies Weakness Pertinent Negative: Pt denies other symptoms Pertinent Negative: Exacerbated by nothing, Relieved by nothing Recent Healthcare: Recent hospitalization, Previous diagnosis Similar Sx Previous: No Past Medical History Past Medical History Notes: Recent admission with discharge January 18 for history of schizophrenia and polysubstance abuse Past Medical History 1) Schizophrenia, adenoid type 2) History of polysubstance abuse Past Surgical History Unknown Smoking History Light Tobacco Smoker Social History Drug Use: Meth, Other Ambulatory Status Independent Review of Systems Basic Review of Systems : No dysuria, No frequency Hematologic: No bleeding, No bruising Neurologic: NL mental status, No weakness, No numbness Constitutional: Denies: Chills, Fatigue, Fever Respiratory: Denies: Non-productive cough, Shortness of breath, Wheezing Cardiovascular: Denies: Chest pain, Edema GI: Denies: Constipation, Diarrhea, Nausea, Vomiting Complete sys rev & neg: except as marked. Female: Denies: Dysuria, Flank pain, Hematuria, Urination decreased Physical Exam Initial Vital Signs Vital Signs (First) Date Time Temp Pulse Resp B/P Pulse Ox O2 Delivery O2 Flow Rate FiO2 01/27/17 12:34 36.7 85 16 126/80 97 Room Air Initial VS: Reviewed, Vital signs normal Head / Eyes: Atraumatic, Normocephalic, PERRL ENT: Mucous membranes moist, Conjunctiva normal, No scleral icterus Neck: Supple, Non-tender, Full range of motion Respiratory: Breath sounds normal, Clear to auscultation, No respiratory distress Cardiovascular: Regular rate & rhythm, Heart sounds normal, Intact distal pulses Abdomen / GI: Soft, Non-tender, No guarding, No rebound, No distention Back: No CVA tenderness Lymphatic: No lymphadenopathy Extremities: Vascular intact, Neuro intact, No swelling, No tenderness Neurologic: Alert, Oriented, Nonfocal Psychiatric: Mood/affect normal, Behavior normal, Normal thought content Rash / Lesion Notes: Right inguinal area: wound appears dry and intact with no discharge. Mild erythematous. No warmth, swelling, or tenderness to palpation. Re-Eval/Medical Decision Med Decision/Clinical Course 31 yo female with schizophrenia and polysubstance abuse returned to the ER for concerns of worsening skin infection at the I&D site on the right groin. She had an I&D done on 01/23 and had a course of Clindamycin. Patient notes the wound turns saab without any other symptoms. On exam, the wound appears to be well healed with no sign of infection. Her vital signs are stable and the rest of the exam are normal. Patient was reassured and instructed to shower daily and not to irritate the wound with shaving or picking at it. She will follow up with surgeon only if the cyst recurs. Otherwise, she can follow up with the residency clinic for other medical issues. Differential Diagnosis: Positive: Abscess, Furunculosis (boil), Skin abscess Severity: Non life-threatening Diagnosis Appears: Clear Counseled Regarding: Diagnosis, Lab results, Need for follow-up, When/why to return to ED Discharge & Departure Shift Change Sign-Out Response to Therapy: Improved Impression: Primary Impression: Sebaceous cyst Disposition: Home Discharge Condition Condition: Stable Patient Instructions: Abscess Follow-up (ED) Additional Instructions: You had a sebaceous cyst that was drained by Dr. Viera on 01/23. The wound looks good with no sign of infection today. As mentioned by Dr. Viera, there is a chance that it may re-occur. If it does , you should follow up with Dr. Lindsay for an appointment. The referral was sent at the last ER visit. Keep the wound clean. You can apply Bacitracin or Neosporin ointment and cover it with bandage. Ok to shower and wash with warm soap but no swimming until healed completely. Avoid shaving your pubic hair or around the groins. Follow up with the Residency clinic as scheduled. Return to the ER if there is any sign of infection develop - fever, redness, increasing pain/swelling, discharge, nausea, or vomiting. Referrals: [facility] (PCP) Attending Statement The patient was seen and examined together with Dr. Smith on 01/26/17 and I have added additional information to the note above. copies to: [facility] Katya Smith DO Jan 27, 2017 13:02 Kurt Najera DO Jan 27, 2017 13:11
== END 2017-01-27 13:17 | disposition home or self-care (01) ==
LOC: SED 12:33
DX: L72.3 Sebaceous cyst (principal); F20.89 Other schizophrenia; F17.200 Nicotine dependence, unspecified, uncomplicated; Z88.2 Allergy status to sulfonamides

== ENCOUNTER 2017-01-31 06:53 | Emergency (ER) | payer OTHER ==
[~2017-01-31] VITALS: Ht 162.6 cm; Wt 99.1 kg
--- NOTE | 2017-01-31 06:56 | ED.REPORT ---
HPI- Female Date of Service Jan 31, 2017 ED Provider: Dr. Viera 31 y/o female with a hx of schizophrenia and polysubstance abuse presents to the ED via EMS complaining of vaginal bleeding for the last 2 days. As per the EMS, the pt has gone through 3 pads over 3 days. Associated sx include lightheadedness. She states "I'm pretty sure I'm even though the test says no". The pt's last period was 8 months ago. She states she had been taking her psych medications intermittently before quitting completely 2 days ago due to the side effects. She has an appointment [facility]. Currently, the pt also reports that her "lungs feel raspy". She denies fever, diaphoresis, chills and drug or alcohol use. Nursing Notes Stated Complaint: VAGINAL BLEEDING Nursing Notes Reviewed: Yes ([employer] not reconciled) Allergies: Coded Allergies: Sulfa (Sulfonamide Antibiotics) (Verified Allergy, Severe, 06/29/15) Scheduled Clotrimazole 1% (Gyne-Lotrimin 7 1%) 45 Gm Cream.appl 1 APPLIC TOP BID Divalproex ER (Divalproex ER) 500 Mg Tab.er.24h 1,500 MG PO HS Olanzapine (Olanzapine) 15 Mg Tablet 15 MG PO HS Scheduled PRN Hydroxyzine Pamoate (HydrOXYzine Pamoate) 50 Mg Capsule 50 MG PO TID PRN PRN For Itching General Time Seen by MD: 06:55 Chief Complaint Vaginal bleeding... Hx Obtained From: Patient Arrived By: Walk-in Sudden in Onset?: Yes Onset Occurred: 2 days ago Symptom Duration: Since onset Severity: Current: No pain currently Severity: Maximum: No pain Recent Healthcare: Recent doctor visit Similar Sx Previous: No Past Medical History Past Medical History Notes: Recent admission with discharge January 18 for history of schizophrenia and polysubstance abuse Past Medical History 1) Schizophrenia, adenoid type 2) History of polysubstance abuse Past Surgical History Unknown Smoking History Light Tobacco Smoker Social History Drug Use: Meth, Other Ambulatory Status Independent Review of Systems Reports: raspy lungs Constitutional: Denies: Chills, Fever Female: Reports: Vaginal bleeding - abnl Skin: Denies Diaphoresis Neurologic: Reports: Lightheaded Complete sys rev & neg: except as marked. Physical Exam Initial Vital Signs Vital Signs (First) Date Time Temp Pulse Resp B/P Pulse Ox O2 Delivery O2 Flow Rate FiO2 01/31/17 07:00 36.6 79 16 118/76 99 Room Air Initial VS: Reviewed Head / Eyes: Atraumatic, Normocephalic Neck: Supple, Non-tender, Full range of motion Respiratory: Breath sounds normal, Clear to auscultation, No respiratory distress Cardiovascular: Regular rate & rhythm, Heart sounds normal, Intact distal pulses Extremities: Vascular intact, Neuro intact, No swelling, No tenderness Skin: Warm, Dry, No cyanosis Neurologic: Alert, Oriented, Nonfocal General/Constitutional: Awake, Alert, No acute distress Abdomen: Atraumatic, Soft, Non-tender Sebaceous cyst in right groin area is healing well but there is candidiasis developing. PSYCHIATRIC: Flat , blunt affect. Limited insight. Poor judgement. Mentions non-compliance. Presentation is concernnig for delusional thinking. Interpretation & Diagnostics Lab Results Interpretation Result Diagram: 01/31/17 0720 01/31/17 0720 Test 01/31/17 07:20 01/31/17 07:50 White Blood Count 8.6th/mm3 (3.8-10.1) Red Blood Count 3.88mil/mm3 (3.90-5.20) Hemoglobin 12.8g/dL (12.0-15.6) Hematocrit 38.3% (35.0-46.0) Mean Corpuscular Volume 98.7fL (81-100) Mean Corpuscular Hemoglobin 33.0pg (27.0-35.0) Mean Corpuscular Hemoglobin Concent 33.4% (32.0-37.0) Red Cell Distribution Width 12.3% (12.3-15.4) Platelet Count 146bil/L (150-400) Neutrophils (%) (Auto) 63.5% (40-74) Lymphocytes (%) (Auto) 21.1% (14-46) Monocytes (%) (Auto) 10.5% (4-12) Eosinophils (%) (Auto) 4.4% (0-5) Basophils (%) (Auto) 0.3% (0-3) Sodium Level 136mEq/L (134-144) Potassium Level 3.9mEq/L (3.5-5.2) Chloride Level 100mEq/L (97-108) Carbon Dioxide Level 23mmol/L (18-29) Blood Urea Nitrogen 9mg/dL (6-20) Creatinine 0.84mg/dL (0.57-1.00) Estimat Glomerular Filtration Rate 113mL/min (>59) Glucose Level 97mg/dL (60-99) Calcium Level 8.6mg/dL (8.5-10.1) Total Bilirubin 0.2mg/dL (0.0-1.2) Aspartate Amino Transf (AST/SGOT) 16U/L (0-50) Alanine Aminotransferase (ALT/SGPT) 16U/L (0-32) Alkaline Phosphatase 76U/L (25-150) Total Protein 6.6g/dL (6.4-8.4) Albumin 3.9g/dL (3.4-5.0) HCG Beta Subunit < 0.500mIU/mL Alcohols < 10mg/dL (0-10) Hold Urine Received (Received) Lab Results Interpretation: CBC normal CMP normal U tox negative negative Alcohol negative Re-Eval/Medical Decision Med Decision/Clinical Course This is a 31-year-old female with a history of psychosis and schizophrenia and recent psychiatric hospitalization who presents with a complaint that she is 8 months and having bleeding. She reports that the pregnancies never show up on her urine tests. She also notes that she has stopped taking her psychiatric medicines. She denies any abdominal pain. On exam she has a flat affect, slightly disorganized, has limited insight. There is a strong concern that Lc Medel's description of symptoms is delusional, as apparently she was not one week ago. She clinically appears well, has a soft nontender abdomen, she has had a recent sebaceous cyst drained, and the site is healed-although there is some mild candidiasis in the adjacent groin area now. The patient denies any recent substance abuse, and is been sober since discharge. She did have previous substance abuse history. I demonstrate any features indicate imminent harm herself or others. He has normal vitals. Blood work was normal-and this includes a negative test. [facility] was involved, and confirms the patient is on a LRO. [facility], [facility] indicates she been generally compliant-certainly do not want the [facility] called at this point, the patient is comfortable going directly to [facility], and [facility] personnel like to come over-and they will discuss parenteral (depot) antipsychotics as she has been on these in the past. This seems reasonable. The patient does have a low level of delusional behavior and psychosis, but again does not demonstrate signs of danger to herself and others. She does not demonstrate relapse substance abuse, and she is cooperative. Source of Hx: Old records, EMS Re-Evaluation/Progress #1: Time of Eval: 09:10 Re-Evaluation/Progress Note: Ritika social insurance adviser states the pt has an appointment with her prescriber, who is okay with discahrging the pt to [facility]. Re-Evaluation/Progress #2: Time of Eval: 10:00 Patient Status: Condition improved Re-Evaluation/Progress Note: Rechecked pt. Discussed lab results, diagnosis and plan to discharge. Pt understands and agrees with the plan. F/U instructions and RTER warning given. All questions addressed. Counseled Regarding: Diagnosis, Lab results, Need for follow-up, When/why to return to ED Discharge & Departure Impression: Primary Impression: Schizophrenia Schizophrenia type: unspecified Qualified Code: F20.9 - Schizophrenia, unspecified Additional Impressions: Vaginal bleeding Acute psychosis Noncompliance with medication regimen Disposition: Home Discharge Condition All VS Reviewed: Yes Condition: Stable Additional Instructions: 1. Your blood tests were normal. 2. You are NOT . 3. Continue to stay away from drugs. 4. It is really important that you be on your psychiatric medications. We are having you go over to [facility] directly from the ED to discuss your medications with your prescribers. 5. Return to the ED if new or worsening symptoms. Return to the ED if you have thoughts of hurting yourself or others. Referrals: [facility] (PCP) Scribe Attestation Portions of this note were transcribed by Bettina Riley. I, , personally performed the history, physical exam and medical decision- making;I reviewed and confirmed the accuracy of the information in the transcribed note. Signed by Sigifredo Hendrix. 01/31/17 10:00 copies to: [facility] Darron Viera MD Jan 31, 2017 06:56 Bettina Riley Jan 31, 2017 07:07
[2017-01-31 07:00] VITALS: BP 118/76; PULSE 79; RESP 16; O2SAT 99
[2017-01-31 07:27] LABS: BASOPHILS % (AUTO) 0.3 % (0-3); EOSINOPHILS % (AUTO) 4.4 % (0-5); MONOCYTES % (AUTO) 10.5 % (4-12); Mean Corpuscular Volume 98.7 fL (81-100); NEUTROPHILS % (AUTO) 63.5 % (40-74); Platelet Count 146 bil/L (150-400)
[2017-01-31 09:24] VITALS: BP 117/73; PULSE 68; RESP 15; O2SAT 98
[2017-01-31] MEDS ORDERED: CLOT45CR7 TOP (10:09)
[2017-01-31 10:16] VITALS: BP 117/73; PULSE 68; RESP 15; O2SAT 98
== END 2017-01-31 10:17 | disposition home or self-care (01) ==
LOC: SED 06:53 → EDBD 06:53 → SED 10:17
DX: F23 Brief psychotic disorder (principal); N93.9 Abnormal uterine and vaginal bleeding, unspecified; R42 Dizziness and giddiness; F17.200 Nicotine dependence, unspecified, uncomplicated; Z91.14 Patient's other noncompliance with medication regimen; Z88.2 Allergy status to sulfonamides
CPT/HCPCS: 36415; 80053; 81025; 84702; 85025; 90791; 99284; G0480

== ENCOUNTER 2017-02-27 14:17 | Inpatient (IN) | payer MEDICAID, OTHER ==
[~2017-02-27] VITALS: Ht 162.6 cm; Wt 101.0 kg
[~2017-02-27 14:17] MED LIST changes: +CLOT45CR7 TOP
[2017-02-27 15:05] VITALS: BP 140/82; PULSE 76; RESP 15; O2SAT 99
--- NOTE | 2017-02-27 15:18 | ED.REPORT ---
HPI-Psychiatric Illness Date of Service Feb 27, 2017 ED Provider: Dr. Viera 31 y/o female with a hx of paranoid schizophrenia is brought to the ED by [facility] health care case manager after they got a call from her landlord that she was going in and out of other apartments prior to arrival. The pt has not been taking her medications. She is not answering most of the questions, including whether she is suicidal or homicidal. Further history is unavailable due to patient's mental status and lack of cooperation. Nursing Notes Stated Complaint: MENTAL HEALTH Chief Complaint: Psychiatric Complaint Nursing Notes Reviewed: Yes (Innovari not reconciled) Allergies: Coded Allergies: Sulfa (Sulfonamide Antibiotics) (Verified Allergy, Severe, 06/29/15) Scheduled Clotrimazole 1% (Gyne-Lotrimin 7 1%) 45 Gm Cream.appl 1 APPLIC TOP BID Divalproex ER (Divalproex ER) 500 Mg Tab.er.24h 1,500 MG PO HS Olanzapine (Olanzapine) 15 Mg Tablet 15 MG PO HS Scheduled PRN Hydroxyzine Pamoate (HydrOXYzine Pamoate) 50 Mg Capsule 50 MG PO TID PRN PRN For Itching General Time Seen by MD: 15:17 Chief Complaint Bizarre behavior Unable to Obtain Hx: Uncooperative, Mental status Arrived By: Walk-in (brought in by home health care case manager) Onset Occurred: Just prior to arrival Symptom Duration: Since onset Recent Healthcare: Recent doctor visit Risk-Psychiatric Illness Suicide Risk Stratification Suicide Risk Factors - Adult: : Prior psych admission: Substance abuse RF Statements: Risk factors reviewed (not predictive) Past Medical History Past Medical History Notes: Recent admission with discharge January 18 for history of schizophrenia and polysubstance abuse, patient is on LRO and affadavit today indicates non-compliance (02-26-17) Recent ED visit with mild psychosis and delusions of , but not to extent of requiring hospitalizaation (01/31/17) Past Medical History 1) Schizophrenia 2) History of polysubstance abuse Past Surgical History Unknown Smoking History Light Tobacco Smoker Social History Alcohol Use: In recovery Drug Use: Meth, Other Ambulatory Status Independent Review of Systems Unable to Obtain ROS Uncooperative, Mental status Complete sys rev & neg: except as marked. Physical Exam Initial Vital Signs Vital Signs (First) Date Time Temp Pulse Resp B/P Pulse Ox O2 Delivery O2 Flow Rate FiO2 02/27/17 15:05 36.8 76 15 140/82 99 Room Air Initial VS: Reviewed, Vital signs normal Head / Eyes: Atraumatic, Normocephalic, PERRL Neck: Supple, Non-tender, Full range of motion Respiratory: Breath sounds normal, Clear to auscultation, No respiratory distress Cardiovascular: Regular rate & rhythm, Heart sounds normal, Intact distal pulses Abdomen / GI: Soft, Non-tender Extremities: Vascular intact, Neuro intact, No swelling, No tenderness Skin: Warm, Dry, No cyanosis General/Constitutional: Awake, Well hydrated Behavior: Positive: Withdrawn Near catatonic Admits she is not taking her medications No toxidrome or signs of withdrawal or intoxication No self-cutting scars on her arms. Neurologic: No motor deficits, No sensory deficits Abnormal Mood/Affect: Positive: Flat affect Abnormal Thinking / Perception: Positive: Insight abnormal, Judgment abnormal Near catatonic, but not completely. Will look at you, but not answer questions. Slow movements. Intermittently gives one-two word answers but whispers them and makes it difficult to hear/understand. Does not answer questions about SI/HI or hallucinations. Interpretation & Diagnostics Lab Results Interpretation Result Diagram: 02/27/17 1540 02/27/17 1540 Test 02/27/17 15:40 02/27/17 16:09 White Blood Count 9.9th/mm3 (3.8-10.1) Red Blood Count 4.11mil/mm3 (3.90-5.20) Hemoglobin 13.3g/dL (12.0-15.6) Hematocrit 39.8% (35.0-46.0) Mean Corpuscular Volume 96.8fL (81-100) Mean Corpuscular Hemoglobin 32.4pg (27.0-35.0) Mean Corpuscular Hemoglobin Concent 33.4% (32.0-37.0) Red Cell Distribution Width 11.8% (12.3-15.4) Platelet Count 171bil/L (150-400) Neutrophils (%) (Auto) 64.4% (40-74) Lymphocytes (%) (Auto) 28.0% (14-46) Monocytes (%) (Auto) 5.3% (4-12) Eosinophils (%) (Auto) 1.8% (0-5) Basophils (%) (Auto) 0.3% (0-3) Sodium Level 142mEq/L (134-144) Potassium Level 4.3mEq/L (3.5-5.2) Chloride Level 104mEq/L (97-108) Carbon Dioxide Level 21mmol/L (18-29) Blood Urea Nitrogen 11mg/dL (6-20) Creatinine 0.82mg/dL (0.57-1.00) Estimat Glomerular Filtration Rate 116mL/min (>59) Glucose Level 108mg/dL (60-99) Calcium Level 9.7mg/dL (8.5-10.1) Total Bilirubin 0.2mg/dL (0.0-1.2) Aspartate Amino Transf (AST/SGOT) 18U/L (0-50) Alanine Aminotransferase (ALT/SGPT) 16U/L (0-32) Alkaline Phosphatase 81U/L (25-150) Total Protein 6.9g/dL (6.4-8.4) Albumin 4.4g/dL (3.4-5.0) Thyroid Stimulating Hormone (TSH) 1.840uIU/mL (0.450-4.500) Human Chorionic Gonadotropin, Qual Negative (Negative) Hold [place]ima Top Tube Received (Received) Lab Results Interpretation: CBC normal CMP normal Breathylizer 0 Tox screen negative Re-Eval/Medical Decision Med Decision/Clinical Course This is a 31-year-old female brought in as I understand by police-please see affidavits-with concern for medication noncompliance, grave disability and near catatonia. Sensory has recent psychiatric hospitalization of severe psychosis, but her LRO just recently ended. She is followed by [facility] services, they have also completed an affidavit and request DCR evaluation. The patient is has a very flat, slow affect. She is nearly, but not completely catatonic-she will look at you, she occasionally mutters a difficult to hear word and answer questions but generally does not answer questions. She does move, but is extremely slow. She does not answer questions regarding suicidality or homicidality, she does admit to medication noncompliance. She has no overt findings of toxidrome evident. She has normal vitals. Initial reading labs, urine tox, breathalyzer and breathylizer normal. No acute medical issues are identified. The ENVIRONMENTAL SERVICES FLOOR TECH is being consulted, with the understanding of the DCR evaluation is indicated. Patient's being turned over to oncoming provider change of shift pending mental health evaluation. Source of Hx: Old records Differential Diagnosis: Positive: Schizophrenia, Negative: Alcohol abuse Counseled Regarding: Diagnosis Discharge & Departure Shift Change Sign-Out Patient Care Transferred: Yes Discussed Complaint(s): Yes Laboratory Evaluation: Back, reviewed by me Input from Consult: Awaiting ENVIRONMENTAL SERVICES FLOOR TECH & DCR evaluations Impression: Primary Impression: Schizophrenia Schizophrenia type: unspecified Qualified Code: F20.9 - Schizophrenia, unspecified Additional Impressions: Noncompliance with medication regimen Acute psychosis Discharge Condition All VS Reviewed: Yes Referrals: [facility] ([facility] Care Transferred to: Dr. Dukes Care Transferred at: 18:00 Scribe Attestation Portions of this note were transcribed by Bettina Riley. I,, personally performed the history, physical exam and medical decision-making;I reviewed and confirmed the accuracy of the information in the transcribed note. Signed by Sigifredo Hendrix. 02/27/17 16:47 Darron Viera MD Feb 27, 2017 15:18 Bettina Riley Feb 27, 2017 16:43
[2017-02-27 15:53] LABS: BASOPHILS % (AUTO) 0.3 % (0-3); EOSINOPHILS % (AUTO) 1.8 % (0-5); MONOCYTES % (AUTO) 5.3 % (4-12); Mean Corpuscular Hemoglobin 32.4 pg (27.0-35.0); Mean Corpuscular Volume 96.8 fL (81-100); NEUTROPHILS % (AUTO) 64.4 % (40-74); Platelet Count 171 bil/L (150-400)
[2017-02-27 17:00] VITALS: BP 125/84; PULSE 65; RESP 14; O2SAT 96
[2017-02-27 19:45] VITALS: BP 125/83; PULSE 92; RESP 16; O2SAT 96
[2017-02-27 22:00] VITALS: BP 114/78; PULSE 69; RESP 18; O2SAT 96
[2017-02-28] MEDS ORDERED: Magnesium Hydroxide 10 mL Oral Concentration PO PRN (00:40)
[2017-02-28 00:41] VITALS: BP 114/78; PULSE 69; RESP 18; O2SAT 96
[2017-02-28] MEDS: DIVALPROEX PO SCH ×4 (00:47→23:26)
--- NOTE | 2017-02-28 02:49 | NUR ---
admit note nursing 11-7 this is a 31 year old female police found wandering at her apartment complex. she was brought to [facility] where she was medically cleared, evaluated and detained [place] as gravely disabled. has a long hx of schizophrenia with multiple hospitalizations. she was discharge from this unit on 01/18/17 and appears to have stopped taking her medication due to believing that she is . she arrived with er staff and security at 0030. physical assessment- no apparent medical/physical injury/need and none is apparent. is a/o to person and place, vs- wnl, allergic to sulfa, negative test, ht- 64" wt- 211 lbs. unable to complete the admission process due to internal stimuli and disorganization. was searched, agreed to no self harm and was briefly oriented to her surroundings. initially given rm 222 but had to be moved to 231 due to wandering into other patients rooms. initially required one to one supervision and direction. received bed time medication at 0100 and has appeared to sleep after 0230. assessed q 15 minutes. milly
[2017-02-28 14:43] VITALS: BP 136/86; PULSE 45; RESP 16
--- NOTE | 2017-02-28 15:31 | HP ---
[address] [address] HISTORY AND PHYSICAL PATIENT: KARLO SMITH : 1985 MR#: [id number] ADMIT: 02/28/2017 JOB ID: [id number] IDENTIFICATION: The patient is a 31-year-old, white female with a history of schizophrenia. She lives in an apartment in [place] and is followed at [facility]. REASON FOR ADMISSION: Client brought to the ED by [facility] telephonic case manager after they were called from her landlord stating that the client was confused, disorganized and wandering in and out of other people's apartments. SUMMARY OF PRESENT ILLNESS: The patient is a 31-year-old, white female with a history of schizophrenia and polysubstance abuse. Transferred from her apartment to the ED after landlord called the police due to client acting bizarrely. The patient herself is an extremely poor historian and when she becomes psychotic, cannot verbalize. She was able to nod yes or no but was essentially nonverbal during my session. She presents today for evaluation and treatment of psychosis and near catatonia. She has no complaints. I met with her for a 30-minute evaluation and spent an additional 30 minutes reviewing course and records kept by [facility] and to staff that have been interacting with her. Her main difficulty is schizophrenia and secondary issue is medication noncompliance. The condition has been present for decades, and is of a moderate to severe intensity, manifesting with symptoms of high anxiety, disorganized thoughts, paranoia, lack of social cues, and poor boundaries. She has not been able to attend to her activities of daily living due to the degree of impairment. All of the above are made worse when she does not sleep well, becomes socially isolated, or stops taking her medications. It is all improved when she does sleep well, takes her medication and is surrounded by good people. She is currently presenting with marked cognitive deficits and severe impairment in impulse control, coping, judgment, insight and reality testing. Client could not participate in psychiatric review of systems or physical review of systems. PAST MEDICAL HISTORY: MEDICATIONS: 1. Depakote (divalproex) ER 1500 mg h.s. 2. Olanzapine 15 mg. ALLERGIES: SULFA DRUGS. PAST MEDICAL HISTORY: Recent admissions for schizophrenia and polysubstance abuse. Recent ED visit for delusion that she was . PAST PSYCHIATRIC HISTORY: The client reports feeling a desire to hang herself at the age of [age]. She reports her first psych hospitalization at age 16. She was hospitalized first at [facility] per psychiatry in 2009. She has had over six inpatient stays both at the [facility] and at [facility]. PAST SUICIDE ATTEMPTS: Yes, at age [age]. Some thoughts since but no attempts. HISTORY OF VIOLENCE: No. PSYCHOSOCIAL HISTORY: Client is and currently lives independently. She dropped out of high school and does not have a GED. Her current funding source is disability. She denies drug and alcohol use. In the past has had trouble with alcohol, heroin, marijuana and methamphetamines. MENTAL STATUS EXAMINATION: Client neatly dressed, very poor eye contact. Her behavior lethargic and withdrawn. Attitude aloof and detached. Speech monotone or mute. Mood dysphoric. Affect congruent, flat, restricted. Thought process, client unable to relate a coherent history. She did not appear to be responding to internal stimuli that had very concrete and restrictive thought process. More poverty of thought than anything else. Thought content, client was mute. She did deny suicidal ideation when I asked but merely shaking her head no. Client could not answer orientation, memory, or attention questions. Insight and judgment markedly impaired. Impulse control poor. Reality testing poor. Competence to handle current stressors is currently being overwhelmed. PHYSICAL EXAMINATION: Vital signs within normal limits. History and physical reviewed from ED and appear appropriate. LABORATORY DATA: CBC, liver, electrolytes, thyroid normal. HCG negative. UDS negative. IMPRESSION: Client is a 31-year-old, white female, who presents in a mute but 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 Previously, she had been in a catatonic state while here in our unit. She is a very poor historian. She does have a history of both schizophrenia and polysubstance abuse but her urine toxicology was negative at this time. It appears she has been noncompliant with her medications and has had a gradual return of anxiety initially and then acute psychosis. She could not participate in the interview, and I was unable to have an idea of her thoughts in the past. She has had intense feelings about God and multiple sikhism delusions. The patient was detained on a 72-hour involuntary treatment hold. DIAGNOSES: AXIS I 1. Schizophrenia, chronic, paranoid. 2. Substance abuse, polysubstance, currently sober. AXIS II Deferred. AXIS III None. AXIS IV Mild. AXIS V Current Global Assessment of Functioning equal to 30. PLAN: Recommend client be admitted to our unit, be provided with a high degree of safety through the structure and active adult engagement that she will receive here. Will have her participate in one-to-one unit and group activities focused on improving coping skills, reality based thinking and impulse control. Will try to come up with a safety plan and a treatment plan regarding medication compliance. Client is agreeable to restarting Depakote and Zyprexa. Will initially start Depakote at 750 mg h.s. to minimize potential side effects. Client is on a 72-hour involuntary treatment hold and will have a chance to talk with her [employer] executive director and a engineering laboratory technician in the morning. Anticipate a 5-10 day stay.
--- NOTE | 2017-02-28 16:21 | NUR ---
[id number]. nurs. S/O: Pt sleeping in am, awake to take sheduled zyprexa. Later, up to eat in DR, has sim. presentation to prev. early admissions, pt stares ,with puzzled expression and is verbally unresponsive to any inquiry. Pt observing happenings around her, moving in slow somewhat dazed manner. Pt appeared to be indicating that she was have AHs but response indistinct. Pt still seems somewhat comfortable in familiar environment. Continue to monitor for safety ,provide support. Pt has signed med waiver to NOT take meds prior to court hearing tomorrow. P:CNCP
--- NOTE | 2017-02-28 17:32 | NUR ---
[facility] Day Shift Pt maintained behavioral control throughout the shift. Pt affect appears mostly flat, blunt, though pt does express some frustration in the early AM through use of facial expressions and exaggerated movement. Pt spends most of the shift resting in her room or lightly pacing the unit. Pt occasionally appears to stare blankly into other pt rooms until redirected. Pt is only able to mildly engage in conversation with staff and peers, speaking in brief sentences at a low volume. Pt did not attend community meeting or group activities throughout the shift. Pt attended all meals and ate approx 100% of all meals.
--- NOTE | 2017-02-28 23:26 | NUR ---
Observations 1900 to 0700 Pt attended and participated in wrap up group. Pt ate a snack. Pt appears internally preoccupied and spends free time roaming unit with a blank stare. Pt maintained behavioral control. Pt appeared asleep at 2300 and has remained asleep. Pt respirations were observed when asleep. Staff completed 15 min close observations as ordered.
--- NOTE | 2017-03-01 03:21 | NUR ---
Nursing Noc Pt sleeping through the evening then up at change of shift to med room requesting medications. Appears disheveled and preoccupied smirking or giggling to internal stimuli. Pt noted to sleep throughout the shift by Q15 minute safety checks. Continuing to monitor mood, behavior and emotional state. CP
--- NOTE | 2017-03-01 13:52 | NUR ---
Nursing Note [id number] Behavior S/O: Pt in room most of the day. She is interacting with other patients minimally. Pt refuses to talk with me or answer questions including yes or no questions. Interacts with other staff only briefly when she needs/wants something. Affect flat. Piercing stare when attempting to talk with her. A: Pt appears to be responding to internal stimuli. P: Provide supportive environment. Monitor medications & effects.
--- NOTE | 2017-03-01 14:15 | PCM.PNPSY ---
Subjective Date of Service Mar 01, 2017 Subjective I spent 30 minutes both reviewing treatment plan with our clinical team, interviewing the patient and providing supportive/educational psychotherapy. I spent more than 50% of the time counseling the patient. I reviewed the treatment plan with the patient and discussed options available including the potential risks, benefits and side effects. [place] reports a slight improvement in thought organization and mood stability overnight. Staff reports that she has been isolating and participating poorly in one-to-one unit and group activities. She slept 6 hours and refuses to participate or is unable to participate in a psychiatric or physical symptoms review. She denies medication side effects. Current Medications Current Medications Clonazepam 0.5 mg HS PO Last administered on 02/28/17 23:25; Admin Dose 0.5 MG ; Start 02/28/17 at 00:41 Divalproex Sodium/ Divalproex Sodium 750 mg HS PO Last administered on 23:26; Admin Dose 750 MG; Start 02/28/17 at 00:41 Olanzapine 5 mg DAILY PO Last administered on 02/28/17 08:48; Admin Dose 5 MG; Start 02/28/17 at 08:30 Olanzapine 15 mg HS PO Last administered on 02/28/17 23:25; Admin Dose 15 MG; Start 02/28/17 at 00:41 Mental Status Exam Appearance: Neat/well groomed Attitude: Guarded Behavior: Distractible Affect: Flat Mood: Dysthymic, Depressed Thought Process/Associations: Blocking Speech Production: Soft, Mumbled, Muter Speech Rate: Lags/Latency Thought Content: Negativistic, Suspicious Delusions: Paranoid Consciousness: Lethargic Orientation: Unable to assess Memory: Untestable Estimate Intellectual Function: Unable to assess Insight: Limited Judgement: Limited Result Diagram: 02/27/17 1540 02/27/17 1540 Mental Health Plan Client is a 31-year-old, white female, who presents in a mute but 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 Previously, she had been in a catatonic state while here in our unit. She is a very poor historian. She does have a history of both schizophrenia and polysubstance abuse but her urine toxicology was negative at this time. It appears she has been noncompliant with her medications and has had a gradual return of anxiety initially and then acute psychosis. She could not participate in the interview, and I was unable to have an idea of her thoughts in the past. She has had intense feelings about God and multiple amish delusions. The patient was detained on a 72-hour involuntary treatment hold. [place] AXIS I 1. Schizophrenia, chronic, paranoid. 2. Substance abuse, polysubstance, currently sober. AXIS II Deferred. AXIS III None. AXIS IV Mild. AXIS V Current Global Assessment of Functioning equal to 30. Medications Treatments Patient is being provided with a high degree of safety through our unit structure and active adult engagement provided by our mental health professionals, mental health technicians, psychiatric nurses and myself. We are focusing on developing improved coping skills and identifying stressors that may have led to current episode. We will attempt to: * Integrate into therapeutic groups, milieu and individual therapy. * Maintain in a closely monitored and structured unit * Provide low-stimulation environment * Obtain collateral data to assist in treatment planning * Assess degree of lability of affect and impulse control * Complete safety plan * Decrease frequency of relapse and need for re-hospitalization * Denies thoughts of harm to self and/or others * Establish a consistent sleep pattern * Medication effective in stabilization of mood and/or thought process * Reduce the risk of imminent harm to self and/or others by providing a safe environment * Tolerates medication without side effects Patient will be on the following psychiatric medications: Depakote 750 mg at bedtime to be increased to 1500 mg as tolerated (patient self discontinued her medication is spent off for no undetermined amount of time ). Zyprexa 5 every morning and 15 at bedtime Klonopin 0.5 mg at bedtime Patient's legal status Patient is on a 72 hour involuntary treatment hold. Patient will be given the opportunity to talk to her [employer] sc[employer] consultant on Saturday and the occup therapist on Saturday Anticipated number of hospital days to achieve above goals: 5-10 home Disposition: Home Clayton Cash MD Mar 01, 2017 14:15
[2017-03-01 15:41] VITALS: BP 129/78; PULSE 74; RESP 16
--- NOTE | 2017-03-01 20:51 | NUR ---
Observations 0900 - 2130 Pt affect and mood was flat, blank, disorganized and lost. Pt was pleasant, polite and cooperative when approached. Pt maintained behavior throughout the shift. Pt speech was soft and quiet and eye contact was ok. Pt ate snack. Pt rested in her room, paced in the hallway and sat quietly in D.R. during the day. Pt attended meals in D.R. and ate 75-90% of her meals. Pt ate snack. Pt attended community meeting, groups or unit activities. Pt went out on patio with staff and peers to get some fresh air. Pt was observed every 15 minutes through the shift as ordered.
[2017-03-01] MEDS: DIVALPROEX PO SCH ×2 (21:35)
--- NOTE | 2017-03-02 05:48 | NUR ---
nursing, nights, 11-7 s/o- has appeared to sleep after 2014 during q 15 minute assessments. a- no apparent distress. p- monitor behavior/emotional state, quality, times and amount of sleep, use and effect of medication. milly
[2017-03-02 09:00] VITALS: BP 108/70; PULSE 75; RESP 16
--- NOTE | 2017-03-02 11:33 | NUR ---
Nursing Dayshift: S: "They're telling me 'welcome back.'" O: Patient acknowledging hearing one voice, then ups it to 5 voices, then 10 voices. Then chuckles and a short smile. Voice low and quiet tone. Ambulating slowly on the unit. Sparse conversation. Admits to having harmful thoughts towards herself. Verbally contracts for safety and agrees to seek staff help if feeling dangerous. Questions about anxiety and depression answered in non understandable mumbling. Eating well at meals. A: Quiet. Minimal conversation. P: CPOC. Monitor mood and behavior.
[2017-03-02] MEDS: LORazepam 1 mg Tablet PO PRN (12:21)
--- NOTE | 2017-03-02 16:07 | NUR ---
Reach Truck Operator/Counselor S:" I quit taking my meds. It worked out quite well." O: Patient denies any SI or HI, no anxiety or depression and states that she talks to God and God to her. A: Patient stated that she decided to not take her medications and wanted to start eating better. She feels that it worked out well, and now she that she is back on medications she feels comfortably numb. She is flat and mumbles quite often. She does interact with other patients and has spent time on the patio playing football. P: Follow care plan and coordinate with outpatient providers.
--- NOTE | 2017-03-02 17:50 | NUR ---
Observations 0700 to 1900 Pt attended community meeting. Pt ate a snack. Pt showered. Pt has a flat, blunt affect. Pt has minimal interaction with peers. Pt wanders unit and appears internally preoccupied. Pt maintained behavioral control Breakfast: 100%. Lunch: 100%. Staff completed 15 min close observations as ordered.
[2017-03-02] MEDS: DIVALPROEX PO SCH ×2 (20:28)
--- NOTE | 2017-03-02 21:10 | PCM.PNPSY ---
Subjective Date of Service Mar 02, 2017 Subjective The patient reports, "God is good, I'm well." Prior to admission, the patient reports that she stopped taking medications, started to feel better then "I was staring at people...I was too much with God." Reports the desire to "change my diet instead of taking pills." Patient denies side effects from medication but reports feeling "comfortably numb." Reports ongoing two-way conversations with God. Sleep: good Appetite: okay Suicidal and homicidal ideation: denies SI, reports occasional HI with no target identified Auditory hallucinations:denies but reports ongoing voice of God. Visual hallucinations: denies Other Psychotic Symptoms: see above Anxiety: 0/10 Depression: 0/10 Mental Status Exam Appearance: Neat/well groomed Attitude: Guarded Behavior: Distractible Affect: Flat Mood: Dysthymic Thought Process/Associations: Blocking Speech Production: Soft Speech Rate: Lags/Latency Speech Articulation: Slurred Thought Content: Negativistic, Suspicious Danger to Self/Suicidal Ideati: None Danger to Others: Identified target (None identified. No plan reported.) Delusions: Paranoid Hallucinations: Auditory (Endorses), Visual (Denies) Consciousness: Lethargic Orientation: Person, Place, Situation Memory: Short Term Memory (Impaired) Estimate Intellectual Function: Average Basis for IQ estimate: Word use/vocabulary, Educational history Attention/Concentration & Cogn: Impaired Insight: Limited Judgement: Limited Result Diagram: 02/27/17 1540 02/27/17 1540 Mental Health Plan The patient is a 31-year-old female, who presents in a mute but 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 During her last admission to the [facility], she had been in a catatonic state. She is a very poor historian. She does have a history of both schizophrenia and polysubstance abuse but her urine toxicology was negative. It appears she has been noncompliant with her medications and has had a gradual return of anxiety initially and then acute psychosis. She has had intense feelings about God and multiple congregation delusions. The patient was detained on a 72-hour involuntary treatment hold. [place] AXIS I 1. Schizophrenia, chronic, paranoid. 2. Substance abuse, polysubstance, currently sober. AXIS II Deferred. AXIS III None. AXIS IV Mild. AXIS V Current Global Assessment of Functioning equal to 30. Medications Treatments 1. The patient is admitted to the inpatient unit and will be provided a safe and secure environment. 2. The patient is denying current active suicidality and is not in need of a one-to-one at this time. 3. The patient is encouraged to participate with group and milieu activities. 4. The patient will be seen by the treatment team on a daily basis to assess symptoms, side effects and response to treatment. 5. Increase Depakote to 500mg daily and 1000mg at bedtime. 6. Zyprexa 5 every morning and 15 at bedtime 7. Klonopin 0.5 mg at bedtime 8. Patient will need additional inpatient stabilization 9. Anticipated length of stay 7-10 days. Quinn Rosen MD Mar 02, 2017 21:10 her business initiatives manager on Saturday and the aging box hand on Saturday Anticipated number of hospital days to achieve above goals: 5-10 home Disposition: Home Quinn Rosen MD Mar 02, 2017 21:10
--- NOTE | 2017-03-03 05:37 | NUR ---
Nursing Note Cyber Security Administrator 7pm to 7am Pt visible on unit at start of shift, well - groomed and had changed into street clothing. Pt observed standing in one place for extended periods of time chuckling to herself. Pt denies hearing voices, denies anxiety or depression. When pt. asked about her housing situation she stated I live alone right now. I like having a roommate as long as they are not too crazy and then broke out laughing to herself. After PM med pass pt. continued to stand at the med room door staring ahead despite her peers lining up behind her and had to be prompted to step aside. Pt went to bed at 2230 and slept through the night uninterrupted. Monitor with q 15 min face checks for safety, location and accountability.
[2017-03-03] MEDS: Divalproex (QD) 500 mg ER24 Tablet PO SCH ×2 (09:09→21:07)
[2017-03-03 09:20] VITALS: BP 109/73; PULSE 89; RESP 16
--- NOTE | 2017-03-03 13:57 | NUR ---
Nursing Dayshift: S: "I do feel better today than yesterday." O: Patient agreeing to feeling better today. Has been in the dining room for meals with a good appetite. Some interaction with staff and peers. Did not attend goals group today. Showered this afternoon. Anxiety and depression "better". Denies harmful thoughts and hallucinations. A: Quiet. Flat. Brightens with interaction. P: CPOC. Monitor mood and behavior.
[2017-03-03] MEDS: Alum-Mag Hydrox-Simeth 30 mL Suspension PO PRN (17:25)
--- NOTE | 2017-03-03 18:14 | NUR ---
Observations 0900 - 2130 Pt affect and mood was same as previous shifts. Pt was pleasant, polite and cooperative when approached. Pt maintained behavior throughout the shift. Pt speech was soft and quiet and eye contact was poor, looking downward. Pt ate snack. Pt rested in her room, paced in the hallway and sat quietly in D.R. during the day. Pt attended meals in D.R. and ate 100% of her meals. Pt ate snack. Pt did not attend community meeting and declined to set a daily goal. Pt has kept to herself most of the day. Pt took a shower and attended to ADL's. Pt was observed every 15 minutes through the shift as ordered.
--- NOTE | 2017-03-03 22:17 | PCM.PNPSY ---
Subjective Date of Service Mar 03, 2017 Subjective The patient is minimally interactive but denies any acute issues. She reports still hearing the voice of God. She denies side effects to medications. Sleep: 7.25 hours Appetite: fine Suicidal and homicidal ideation: denies Auditory hallucinations:denies but reports ongoing voice of God. Visual hallucinations: denies Other Psychotic Symptoms: see above Anxiety: 0/10 Depression: 0/10 Current Medications Current Medications Divalproex Sodium 500 mg DAILY PO Last administered on 03/03/17 09:09; Admin Dose 500 MG; Start 03/03/17 at 08:30 Divalproex Sodium 1,000 mg HS PO Last administered on 03/03/17 21:07; Admin Dose 1,000 MG; Start 03/03/17 at 21:00 Mental Status Exam Appearance: Neat/well groomed Attitude: Guarded Behavior: Distractible Affect: Flat Mood: Dysthymic Thought Process/Associations: Blocking Speech Production: Soft Speech Rate: Lags/Latency Speech Articulation: Slurred Thought Content: Negativistic, Suspicious Danger to Self/Suicidal Ideati: None Danger to Others: None Delusions: Paranoid Hallucinations: Auditory (Endorses), Visual (Denies) Consciousness: Lethargic Orientation: Person, Place, Situation Memory: Short Term Memory (Impaired) Estimate Intellectual Function: Average Basis for IQ estimate: Word use/vocabulary, Educational history Attention/Concentration & Cogn: Impaired Insight: Limited Judgement: Limited Result Diagram: 02/27/17 1540 02/27/17 1540 Mental Health Plan The patient is a 31-year-old female, who presents in a mute but 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 During her last admission to the [facility], she had been in a catatonic state. She is a very poor historian. She does have a history of both schizophrenia and polysubstance abuse but her urine toxicology was negative. It appears she has been noncompliant with her medications and has had a gradual return of anxiety initially and then acute psychosis. She has had intense feelings about God and multiple adventism delusions. The patient was detained on a 72-hour involuntary treatment hold. Patient less fixated on adventism themes and denying side effects. [place] AXIS I 1. Schizophrenia, chronic, paranoid. 2. Substance abuse, polysubstance, currently sober. AXIS II Deferred. AXIS III None. AXIS IV Mild. AXIS V Current Global Assessment of Functioning equal to 30. Medications Treatments 1. The patient is admitted to the inpatient unit and will be provided a safe and secure environment. 2. The patient is denying current active suicidality and is not in need of a one-to-one at this time. 3. The patient is encouraged to participate with group and milieu activities. 4. The patient will be seen by the treatment team on a daily basis to assess symptoms, side effects and response to treatment. 5. Continue Depakote 500mg daily and 1000mg at bedtime. 6. Zyprexa 5 every morning and 15 at bedtime 7. Klonopin 0.5 mg at bedtime 8. Patient will need additional inpatient stabilization 9. Anticipated length of stay 7-10 days. Quinn Rosen MD Mar 03, 2017 22:16
--- NOTE | 2017-03-04 04:17 | NUR ---
Nursing, NOC Patient in room all shift, sleeping. Wakens slowly for medications, poor eye contact. Did not conversate, just accepted medications and went back to sleep. Continue w/ Q15 min checks for safety, location and accountability.
[2017-03-04 09:50] VITALS: BP 109/69; PULSE 83; RESP 15
[2017-03-04] MEDS: Divalproex (QD) 500 mg ER24 Tablet PO SCH ×2 (10:03→20:11)
--- NOTE | 2017-03-04 15:36 | NUR ---
Observations 0900 - 0 Pt affect and mood was same as previous shifts. flat, withdrawn, isolative, sullen and quiet Pt was pleasant, polite and cooperative when approached. Pt maintained behavior throughout the shift. Pt speech was soft and quiet and eye contact was poor, blank stare and/or looking downward when talking. Pt rested in her room, stood in her doorway and sat quietly in D.R. during the day. Pt attended meals in D.R. and ate 100% of her meals. Pt ate snack. Pt attended community meeting and set a daily goal. Pt rated her mood as "crappy" on a scale of 1 to 10, with 10 being the best. Pt has kept to herself most of the day. Pt was observed every 15 minutes through the shift as ordered.
--- NOTE | 2017-03-04 15:58 | NUR ---
Fundraising Assistant/Counselor S:"I don't like the meds." O: Patient stated she had some SI earlier today but was able to talk to her nurse, who was able to help her. No HI, no AVH, some anxiety and no depression. A: Patient fluctuated back and forth between mumbling and speaking clearly. She stated that she will most likely not continue meds once discharged. Will follow up with her counselor, Aniyah Carvalho at [place]. P: Follow care plan and coordinate with outpatient providers.
--- NOTE | 2017-03-04 18:15 | NUR ---
Nursing: Day shift: 699 to 1899 S: "I was (suicidal) until I talked with you in the box." "I want to go home". O: Between meals, Carlos was lying in her bed, covers up, eyes closed for the first half of the shift. She DID attend [facility] with encouragement from proposal lead writer. During the last half of the shift, she was dressed neatly, hair combed, smiling on approach, interacting with peers. Some delayed response but much improved form a.m. AT 1315 assessment, rated depression at 10.10 and anxiety at only 2/10. Takes scheduled meds as offered. No requests for prn's. A: Responds to directions. Is aware of court tomorrow. p: Assess for effectiveness of meds ordered today. Addendum: 03/04/17 at 1821 by JOSE ENRIQUE MCKEON RN Amended: Links added.
--- NOTE | 2017-03-04 23:20 | PCM.PNPSY ---
Subjective Date of Service Mar 04, 2017 Subjective The patient is minimally interactive but reports not as tired today, but would prefer all medications be at bedtime. Patient suspicious regarding R3 in room for unclear reasons. The patient stated that upon discharge, "I would probably cut myself off meds again." The patient reports that her CM, Aniyah Salinas, is helping her with her apartment so that she can have roommates. She reports still hearing the voice of God. She denies side effects to medications outside of daytime drowsiness. Sleep: 9 hours Appetite: olay Suicidal and homicidal ideation: some SI earlier, spoke with RN, denies current Auditory hallucinations:denies but reports ongoing voice of God. Visual hallucinations: denies Other Psychotic Symptoms: see above Anxiety: "some" Depression: "away" Current Medications Current Medications Divalproex Sodium 500 mg DAILY PO Last administered on 03/04/17 10:03; Admin Dose 500 MG; Start 03/03/17 at 08:30; Stop 03/04/17 at 21:01; Status DC Divalproex Sodium 1,000 mg HS PO Last administered on 03/04/17 20:11; Admin Dose 1,000 MG; Start 03/03/17 at 21:00; Stop 03/04/17 at 21:01; Status DC Mental Status Exam Appearance: Neat/well groomed Attitude: Guarded Behavior: Distractible Affect: Flat Mood: Dysthymic Thought Process/Associations: Blocking Speech Production: Soft Speech Rate: Lags/Latency Speech Articulation: Slurred Thought Content: Negativistic, Suspicious Danger to Self/Suicidal Ideati: None Danger to Others: None Delusions: Paranoid Hallucinations: Auditory (Endorses), Visual (Denies) Consciousness: Lethargic Orientation: Person, Place, Situation Memory: Short Term Memory (Impaired) Estimate Intellectual Function: Average Basis for IQ estimate: Word use/vocabulary, Educational history Attention/Concentration & Cogn: Impaired Insight: Limited Judgement: Limited Result Diagram: 02/27/17 1540 02/27/17 1540 Mental Health Plan The patient is a 31-year-old female, who presented in a mute but 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 During her last admission to the [facility], she had been in a catatonic state. She is a very poor historian. She does have a history of both schizophrenia and polysubstance abuse but her urine toxicology was negative. It appears she has been noncompliant with her medications and has had a gradual return of anxiety initially and then acute psychosis. She has had intense feelings about God and multiple buddhist delusions. The patient was detained on a 72-hour involuntary treatment hold. Patient less fixated on buddhist themes on admission but is less so today. Patient reports some fatigue from medication and would prefer all at bedtime but is denying other side effects. [place] AXIS I 1. Schizophrenia, chronic, paranoid. 2. Substance abuse, polysubstance, currently sober. AXIS II Deferred. AXIS III None. AXIS IV Mild. AXIS V Current Global Assessment of Functioning equal to 30. Medications Treatments 1. The patient is admitted to the inpatient unit and will be provided a safe and secure environment. 2. The patient is denying current active suicidality and is not in need of a one-to-one at this time. 3. The patient is encouraged to participate with group and milieu activities. 4. The patient will be seen by the treatment team on a daily basis to assess symptoms, side effects and response to treatment. 5. Switch Depakote to 1500mg at bedtime. 6. Zyprexa 5 every morning and 15 at bedtime 7. Klonopin 0.5 mg at bedtime 8. Patient will need additional inpatient stabilization 9. Anticipated length of stay 7-10 days. Quinn Rosen MD Mar 04, 2017 23:20
--- NOTE | 2017-03-05 01:09 | NUR ---
ANNY PT was pleasant when this RN saw her in the milieu as she was present for only a short time. Later, this RN went into her room to given her evening meds and pt was lying in bed with her eyes open. RN asked how pt was doing at the time and she did not respond. PT initially was going to refuse her HS meds, but then grabbed the cup and threw them in her mouth without any water. RN sat with her and offered an open ear if she wanted to talk. PT sat up, drank the water and abruptly layed back down. She did not want to talk at this time. PT is currently sleeping. PT is planning for court tomorrow. WIll CTM at this time with current POC and monitor for any A/R.
--- NOTE | 2017-03-05 11:45 | PCM.PNPSY ---
Subjective Date of Service Mar 05, 2017 Subjective Patient is a 31-year-old, white female with a history of schizophrenia and polysubstance abuse, transferred from her apartment to the ED after landlord called the police due to client acting bizarrely 2nd to medication noncompliance , have been on the Mental Health Units for 5 days. Home Depakote and olanzapine were restarted and titrating, added clonazepam. She admits to still hearing voices of god, non threatening however. Patient states looking forward to coming home to see her 2 boys. Sleep: 8.25 hours Appetite: good Suicidal and homicidal ideation: denies Auditory hallucinations: ongoing voice of God. Visual hallucinations: denies Other Psychotic Symptoms: none Anxiety: "some" Depression: denies Current Medications Current Medications Divalproex Sodium 1,000 mg HS PO Last administered on 03/04/17t 20:11; Admin Dose 1,000 MG; Start 03/03/17 at 21:00; Stop 03/04/17 at 21:01; Status DC Mental Status Exam Appearance: Neat/well groomed Attitude: Cooperative, Guarded Behavior: Distractible Affect: Flat Mood: Dysthymic, Other (smiles today) Thought Process/Associations: Blocking Speech Production: Soft Speech Rate: Lags/Latency Speech Articulation: Slurred Thought Content: Negativistic, Suspicious Danger to Self/Suicidal Ideati: None Danger to Others: None Delusions: Paranoid Hallucinations: Auditory (Endorses), Visual (Denies) Consciousness: Lethargic Orientation: Person, Place, Situation Memory: Short Term Memory (Impaired) Estimate Intellectual Function: Average Basis for IQ estimate: Word use/vocabulary, Educational history Attention/Concentration & Cogn: Impaired Insight: Limited Judgement: Limited Result Diagram: 02/27/17 1540 02/27/17 1540 Mental Health Plan Patient 31yo female with significant history of schizophrenia with medication non compliance. The patient has responded well once home olanzapine and Depakote restarted and titrated while adding clonazepam. Patient still has auditory hallucination, though non threatening. Patient smiles and looks forward to going home. There is significant improvement over yesterday. [place] AXIS I 1. Schizophrenia, chronic, paranoid. 2. Substance abuse, polysubstance, currently sober. AXIS II Deferred. AXIS III None. AXIS IV Mild. AXIS V Current Global Assessment of Functioning equal to 30. Medications Clonazepam 05.mg PO HS Depakote-ER 1500mg PO HS Olanzapine 5mg PO daily Olanzapine 15mg PO HS Ambient 5-10mg PO HS PRN Lorazepam 1mg q4h PRN Vistaril 50mg PO Q4H PRN Nicotine 2mg Buccal Q6h Treatments 1. The patient is admitted to the inpatient unit and will be provided a safe and secure environment. 2. The patient is denying current active suicidality and is not in need of a one-to-one at this time. 3. The patient is encouraged to participate with group and milieu activities. 4. The patient will be seen by the treatment team on a daily basis to assess symptoms, side effects and response to treatment. 5. Depakote (QD) 1500mg at bedtime. 6. Zyprexa 5 every morning and 15 at bedtime 7. Klonopin 0.5 mg at bedtime 8. Patient will need additional inpatient stabilization 9. Anticipated length of stay 7-10 days. Attending Statement The patient was seen and examined together with Dr. Melara on 03/05/17 and I have added additional information to the note above. Preet Melara DO Mar 05, 2017 11:20 Quinn Rosen MD Mar 05, 2017 22:56
[2017-03-05 15:35] VITALS: BP 106/74; PULSE 81; RESP 17
--- NOTE | 2017-03-05 16:24 | NUR ---
Nursin to 1899 S: I will feel depressed until I see my children. O: [place] is dressed neatly and has been out on open unit for hours at a time today. Has not been lying on bed with head covered today. Smiles and even laughs at times during brief assessment conversation with senior medical writer, but smile quickly fades to near tears as she talks about her children. Usual expression is somewhat flat. Denies AH. A: Increasingly interacting with peers. P: Continue to assess for medication effects. Addendum: 03/05/17 at 1635 by JOSE ENRIQUE MCKEON RN Amended: Links added.
--- NOTE | 2017-03-05 18:05 | NUR ---
Obs Dayshift Pt is out on the unit, engages some w/ peers but quietly spoken, soft, and appears spacy at times. Pt is polite and appropriate. Pt has little to no participation in groups or unit activities. Pt spends more time in her room. Pt met w/ her outpatient CM today, good ADL's, good meals, good eye contact.
[2017-03-05] MEDS: Benzocaine-Menthol Lozenge 2/Pkg PO PRN (21:17)
[2017-03-05] MEDS: Divalproex (QD) 500 mg ER24 Tablet PO SCH (21:17)
--- NOTE | 2017-03-06 06:19 | NUR ---
weight shifter [id number] Pt participated in wrap up group with peers and also assisted with putting a puzzle together. Pt took all meds this HS after staring into the medication cup for a while. Pt continues to appear in a form of catatonic state in which she goes in and out at times. No behavioral issues or acting out. No suicidal ideations or intentions to self-harm noted at this time. AM labs include Mag, CBC, and CMP. Slept 7 hrs.Continue to monitor for mood changes, emotional wellbeing, and q15 min checks for safety. Care continues.
[2017-03-06 09:16] VITALS: BP 114/77; PULSE 81; RESP 20
--- NOTE | 2017-03-06 14:19 | NUR ---
Nursing Dayshift: S: "It's a good day." O: Patient on the sedate side today. Has been up for meals with a good appetite. Interactive on approach though quiet speech with some latency. Has napped after lunch. Denies anxiety, depression, harmful thoughts, and hallucinations. A: Quiet. Some isolating. P: CPOC. Monitor mood and behavior.
--- NOTE | 2017-03-06 15:21 | NUR ---
Obs Dayshift Pt is engaging and participating in activities w/ peers. Did take a long nap for half of the day. Pt states that she is feeling good, bright, smiling and appropriate. Pt is reasonable, calm, and co-operative. Pt does become very soft spoken at times and needs reminders to speak up and more clear. Pt has good ADL's, and good meals
--- NOTE | 2017-03-06 16:52 | PCM.PNPSY ---
Subjective Date of Service Mar 06, 2017 Subjective Today patient reported significant agitation, mad at herself for not doing "stuff" to expedite her discharge from mental health. Patient is very anxious about the possibility of seeing her children's again. She has 2 boys but has not seen them in some time. Sleep: 7 hours Appetite: Reports good appetite Suicidal and homicidal ideation: As any suicidal or homicidal ideation Auditory hallucinations: Hear the voice of God in the past, denies any auditory hallucination today. Visual hallucinations: Denies Other Psychotic Symptoms: See above Anxiety: Moderate Depression: Moderate Current Medications Current Medications Divalproex Sodium 1,500 mg HS PO Last administered on 03/05/17t 21:17; Admin Dose 1,500 MG; Start 03/05/17 at 21:00 Mental Status Exam Vital Signs Vital Signs Date Time Temp Pulse Resp B/P Pulse Ox O2 Delivery O2 Flow Rate FiO2 03/06/17 09:16 36.7 81 20 114/77 Appearance: Neat/well groomed Attitude: Cooperative, Guarded Behavior: Distractible Affect: Flat Mood: Dysthymic, Other (smiles today) Thought Process/Associations: Blocking Speech Production: Soft Speech Rate: Lags/Latency Speech Articulation: Slurred Thought Content: Negativistic, Suspicious Danger to Self/Suicidal Ideati: None Danger to Others: None Delusions: Paranoid Hallucinations: Auditory (Endorses), Visual (Denies), Other Consciousness: Lethargic Orientation: Person, Place, Situation Memory: Short Term Memory (Impaired) Estimate Intellectual Function: Average Basis for IQ estimate: Word use/vocabulary, Educational history Attention/Concentration & Cogn: Impaired Insight: Limited Judgement: Limited Mental Health Plan Patient 31yo female with significant history of schizophrenia with medication non compliance. The patient has responded well once home olanzapine and Depakote restarted and titrated while adding clonazepam. She denies auditory hallucinations today, however appeared more evasive and somewhat suspicious, in addition to being more drowsy with low volume speech. This is in contrast to yesterday when patient was smiling and looking forward to going home. We will continue monitor behavior. [place] AXIS I 1. Schizophrenia, chronic, paranoid. 2. Substance abuse, polysubstance, currently sober. AXIS II Deferred. AXIS III None. AXIS IV Mild. AXIS V Current Global Assessment of Functioning equal to 30. Medications Clonazepam 05.mg PO HS Depakote-ER 1500mg PO HS Olanzapine 5mg PO daily Olanzapine 15mg PO HS Ambient 5-10mg PO HS PRN Lorazepam 1mg q4h PRN Vistaril 50mg PO Q4H PRN Nicotine 2mg Buccal Q6h Treatments 1. The patient is admitted to the inpatient unit and will be provided a safe and secure environment. 2. The patient is denying current active suicidality and is not in need of a one-to-one at this time. 3. The patient is encouraged to participate with group and milieu activities. 4. The patient will be seen by the treatment team on a daily basis to assess symptoms, side effects and response to treatment. 5. Depakote (QD) 1500mg at bedtime. 6. Zyprexa 5 every morning and 15 at bedtime 7. Klonopin 0.5 mg at bedtime 8. Patient will need additional inpatient stabilization 9. Anticipated length of stay up to 14 days Attending Statement The patient was seen and examined together with Dr. Melara on 03/06/17 and I have added additional information to the note above. Preet Melara DO Mar 06, 2017 16:52 Quinn Rosen MD Mar 06, 2017 22:59
[2017-03-06] MEDS: Divalproex (QD) 500 mg ER24 Tablet PO SCH (21:08)
--- NOTE | 2017-03-07 05:57 | NUR ---
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 Pt took all HS meds and went to sleep thereafter where she has remained without s/sx of distress. Slept 6hrs. Continue to monitor for mood changes, emotional wellbeing, and q15min checks for safety. Care continues.
--- NOTE | 2017-03-07 10:54 | PCM.PNPSY ---
Subjective Date of Service Mar 07, 2017 Subjective Patient emotionally labile. Today, patient reports increased happiness, was glad to see her friend (peer). They discussed denominational related matters. Additionally, she has reportedly contacted her mother and was able to speek to her 10-year-old son. Patient denies any visual or auditory hallucination, though patient admits to seeing signs of God, on the wall for example. Patient reports medication has made her head feel like a "hot air balloon". Sleep: 6 hours without sleep aid Appetite: Good appetite Suicidal and homicidal ideation: Denies Auditory hallucinations: Denies Visual hallucinations: Denies Other Psychotic Symptoms: See above Anxiety: Denies Depression: Denies Current Medications Current Medications Divalproex Sodium 1,500 mg HS PO Last administered on 03/06/17t 21:08; Admin Dose 1,500 MG; Start 03/05/17 at 21:00 Clonazepam 0.5 mg at bedtime Olanzapine 5 mg in the a.m., 15 mg at bedtime Mental Status Exam Appearance: Neat/well groomed Attitude: Cooperative, Guarded Behavior: Distractible Affect: Well Modulated/Appropriate (vocal, good eye contact, smiles appropriately, still soft at times) Mood: Dysthymic, Other (smiles today) Thought Process/Associations: Logical/Sequential Speech Production: Soft Speech Rate: Lags/Latency Speech Articulation: Normal Thought Content: Negativistic, Suspicious Danger to Self/Suicidal Ideati: None Danger to Others: None Delusions: Paranoid Hallucinations: Other (seeing signs of God on the wall) Consciousness: Alert Orientation: Person, Place, Situation Memory: Short Term Memory (Impaired) Estimate Intellectual Function: Average Basis for IQ estimate: Word use/vocabulary, Educational history Attention/Concentration & Cogn: Impaired Insight: Limited Judgement: Limited Mental Health Plan Patient 31yo female with significant history of schizophrenia with medication non compliance. The patient has responded well once home olanzapine and Depakote restarted and titrated while adding clonazepam. Emotionally labile, patient with increasing increasing happiness, smiles, spontaneous speech normal rate with stronger volume and good articulation whereas yesterday patient with fatigue, suspicious, and avoidance yesterday. Voice with increased volume. Pt denies any hallucination, though seems to have ideas of reference, eating signs of God. Continue with current medication regimen. [place] AXIS I 1. Schizophrenia, chronic, paranoid. 2. Substance abuse, polysubstance, currently sober. AXIS II Deferred. AXIS III None. AXIS IV Mild. AXIS V Current Global Assessment of Functioning equal to 30. Medications Clonazepam 05.mg PO HS Depakote-ER 1500mg PO HS Olanzapine 5mg PO daily Olanzapine 15mg PO HS Ambient 5-10mg PO HS PRN Lorazepam 1mg q4h PRN Vistaril 50mg PO Q4H PRN Nicotine 2mg Buccal Q6h Treatments 1. The patient is admitted to the inpatient unit and will be provided a safe and secure environment. 2. The patient is denying current active suicidality and is not in need of a one-to-one at this time. 3. The patient is encouraged to participate with group and milieu activities. 4. The patient will be seen by the treatment team on a daily basis to assess symptoms, side effects and response to treatment. 5. Depakote (QD) 1500mg at bedtime. 6. Zyprexa 5 every morning and 15 at bedtime 7. Klonopin 0.5 mg at bedtime 8. Patient will need additional inpatient stabilization 9. Anticipated length of stay up to 14 days Attending Statement The patient was seen and examined together with Dr. Melara on 03/07/17 and I have added additional information to the note above. Preet Melara DO Mar 07, 2017 10:54 Quinn Rosen MD Mar 09, 2017 00:41
[2017-03-07 12:26] VITALS: BP 111/75; PULSE 68; RESP 16
[2017-03-07] MEDS: Benzocaine-Menthol Lozenge 2/Pkg PO PRN (16:09)
--- NOTE | 2017-03-07 16:15 | NUR ---
Legal Secretary/Counselor S:"I just want to use medical marijuana." O: Patient denies any SI or HI, no depression and rated her anxiety at low. She states she talks to god. A: Patient stated she is having some flashbacks to seeing some spirits when she was younger. She states that the meds are helping despite not wanting to take them. She has been active on the unit, and is not mumbling anymore. She is active and engaged. P: Follow care plans and coordinate with outpatient providers.
--- NOTE | 2017-03-07 16:42 | NUR ---
Nursing Dayshift: S: "I guess I'm talking too much outside on the patio. Can I get a lozenge?" O: Patient received a lozenge per request. Has been out in the public areas much of the shift. More interactive with staff. Eating well at meals. Attending unit activities. A: Med compliant. More animated. P: CPOC. Monitor mood and behavior.
--- NOTE | 2017-03-07 19:17 | NUR ---
Observations 0900 - 0 Pt affect and mood was same as previous shifts. flat, withdrawn and quiet. Pt was pleasant, polite and cooperative when approached. Pt maintained behavior throughout the shift. Pt speech was soft and quiet and eye contact was poor, blank stare and/or looking downward when talking. Pt stood in her doorway, stood in hallway and sat quietly in D.R. during the day. Pt was minimally social and mostly keeps to herself. Pt attended meals in D.R. and ate 100% of her meals. Pt ate snack. Pt attended community meeting and set a daily goal. Pt rated her mood 8/10, with 10 being the best. Pt was observed every 15 minutes through the shift as ordered.
[2017-03-07] MEDS: LORazepam 1 mg Tablet PO PRN (20:53)
[2017-03-07] MEDS: Divalproex (QD) 500 mg ER24 Tablet PO SCH (21:02)
--- NOTE | 2017-03-08 05:04 | NUR ---
nursing, nights, 11-7 s/o- has appeared to sleep after 2230. up briefly for water at 0420 and easily returned to sleep. assessed q 15 minutes. a- no apparent distress. p- monitor behavior/emotional state, quality, times and amount of sleep, use and effect of medication. milly
[2017-03-08] MEDS: Benzocaine-Menthol Lozenge 2/Pkg PO PRN (12:31)
[2017-03-08 13:53] VITALS: BP 126/80; PULSE 84; RESP 16
--- NOTE | 2017-03-08 14:12 | NUR ---
Nursing Dayshift: S: "Can I get a throat lozenge?" O: Patient c/o dry throat. Received a Cepacol lozenge. No further complaints. Has been out of her room more as the shift progresses. Good appetite at meals. Pleasant on approach. Smiling more during interaction. A: Calm. Cooperative. P: CPOC. Monitor mood and behavior.
--- NOTE | 2017-03-08 17:24 | PCM.PNPSY ---
Subjective Date of Service Mar 08, 2017 Subjective Patient reports feeling more comfortable, she enjoys group and bible study, though she states she "feels like a gerbil in here". She looks forward to discharge and to see her children and reestablishing a relationship with her mother. When asked about how she arrived to [facility], she states that edith has reported her after she commented "my would rather introduce a serial killer to my kids than me". Sleep:6hr Appetite:good "regaining appetite" Suicidal and homicidal ideation: denies Auditory hallucinations:denies Visual hallucinations:denies Other Psychotic Symptoms: paranoia as above Anxiety: denies Depression:denies Current Medications Current Medications Divalproex Sodium 1,500 mg HS PO Last administered on 03/07/17t 21:02; Admin Dose 1,500 MG; Start 03/07/17 at 21:00 Olanzapine 20mg HS, changed 03/07/2017 Mental Status Exam Vital Signs Vital Signs Date Time Temp Pulse Resp B/P Pulse Ox O2 Delivery O2 Flow Rate FiO2 03/08/17 13:53 36.1 84 16 126/80 Appearance: Neat/well groomed Attitude: Cooperative, Guarded Behavior: Distractible Affect: Well Modulated/Appropriate (vocal, good eye contact, smiles appropriately, though withdrawn at times) Mood: Dysthymic, Other (smiles at times today) Thought Process/Associations: Logical/Sequential Speech Production: Soft Speech Rate: Lags/Latency Speech Articulation: Normal Thought Content: Negativistic, Suspicious Danger to Self/Suicidal Ideati: None Danger to Others: None Delusions: Paranoid Hallucinations: Other (seeing signs of God on the wall) Consciousness: Alert Orientation: Person, Place, Situation Memory: Short Term Memory (Impaired) Estimate Intellectual Function: Average Basis for IQ estimate: Word use/vocabulary, Educational history Attention/Concentration & Cogn: Impaired Insight: Limited Judgement: Limited Mental Health Plan Patient 31yo female with significant history of schizophrenia with medication non compliance. The patient has responded well once home olanzapine and Depakote restarted and titrated while adding clonazepam. Mood improved. Affect somewhat labile, improved eye contact, clear and loud voice on initial interview, gradually decrease with flat affect by the end of the interview. Pt denies any hallucination. Patient reports decreased drowsiness with all medications at bedtime. Patient still needs further stabilization. [place] AXIS I 1. Schizophrenia, chronic, paranoid. 2. Substance abuse, polysubstance, currently sober. AXIS II Deferred. AXIS III None. AXIS IV Mild. AXIS V Current Global Assessment of Functioning equal to 30. Medications Clonazepam 05.mg PO HS Depakote-ER 1500mg PO HS Olanzapine 20mg PO HS Ambien 5-10mg PO HS PRN Lorazepam 1mg q4h PRN Vistaril 50mg PO Q4H PRN Nicotine 2mg Buccal Q6h Treatments 1. The patient is admitted to the inpatient unit and will be provided a safe and secure environment. 2. The patient is denying current active suicidality and is not in need of a one-to-one at this time. 3. The patient is encouraged to participate with group and milieu activities. 4. The patient will be seen by the treatment team on a daily basis to assess symptoms, side effects and response to treatment. 5. Depakote (QD) 1500mg at bedtime. 6. Olanzapine 20mg at bedtime 7. Klonopin 0.5 mg at bedtime 8. Patient will need additional inpatient stabilization 9. Anticipated length of stay up to 14 days Attending Statement The patient was seen and examined together with Dr. Melara on 03/08/17 and I have added additional information to the note above. Preet Melara DO Mar 08, 2017 17:24 Quinn Rosen MD Mar 09, 2017 00:48 9. Anticipated length of stay up to 14 days Preet Melara DO Mar 08, 2017 17:24
[2017-03-08] MEDS: Divalproex (QD) 500 mg ER24 Tablet PO SCH (20:47)
--- NOTE | 2017-03-08 20:55 | NUR ---
Observations 0900 - 0 Pt affect and mood was brighter this shift, friendly, more social and active on the unit. Pt was pleasant, polite and cooperative when approached. Pt maintained behavior throughout the shift. Pt speech and eye contact was ok. Pt attended meals in D.R. and ate 100% of her meals. Pt ate snack. Pt attended community meeting and set a daily goal. Pt attended group and unit activities today. Pt was observed every 15 minutes through the shift as ordered.
--- NOTE | 2017-03-08 21:10 | NUR ---
NURSING NOTE [id number] Mood: "fine" Affect: flat, sarcastic at times Behavior: pt. is visible in milieu this shift, participated in rec group, social w/peers, approached med station for HS meds independently and received PRN Ambien 5 mg as well as her scheduled HS meds. Thought processes: denies any psychiatric issues tonight; denying SI/HI, AH/VH, depression/anxiety. Only notable delusional thought content was the pt. stating she "should be discharging tomorrow" but upon clarification pt. seemed more to be indicating she feels as though she should be able to discharge at any time. Lacks insight into her condition and why she is here.
--- NOTE | 2017-03-09 00:04 | NUR ---
Observations 1900 to 0700 Pt attended and participated in wrap up group. Pt ate a snack. Pt spends free time watching TV and interacting with peers. Pt has a flat affect. Pt maintained behavioral control and showed no signs of abnormal behavior. Pt appeared asleep from 2129- 2344. Pt is currently resting quietly in bed. Pt respirations were observed when asleep. Staff completed 15 min close observations as ordered.
--- NOTE | 2017-03-09 06:00 | NUR ---
[id number] Nursing Note Sleep=7.75+ hrs sleep. S/O: Patient often stands back and appears to be observing more than interacting with peers. Patient will interact but does not often initiate interaction. A: Adequate amounts of sleep obtained this shift. P: Monitor for safety and response to treatment. Follow plan of care. PRNs Ambien 5 mg @ 20:47 for sleep. Effective.
--- NOTE | 2017-03-09 13:18 | PCM.PNPSY ---
Subjective Date of Service Mar 09, 2017 Subjective I spent 30 minutes both reviewing treatment plan with our clinical team, interviewing the patient and providing supportive/educational psychotherapy. I spent more than 50% of the time counseling the patient. I reviewed the treatment plan with the patient and discussed options available including the potential risks, benefits and side effects. [place] reports a slight improvement in thought organization and mood stability. Staff reports that she has been more active and participating better in one-to -one unit and group activities. She slept 8 hours and denies psychotic symptoms review. Both staff and myself have observed her responding to internal stimuli. She continues to behave somewhat guarded suspicious and paranoid. She denies medication side effects. She was able to identify her medications and what they were used to treat. Current Medications Current Medications Divalproex Sodium 1,500 mg HS PO Last administered on 03/08/17 20:47; Admin Dose 1,500 MG; Start 03/07/17 at 21:00 Olanzapine 20 mg HS PO Last administered on 03/08/17 20:47; Admin Dose 20 MG; Start 03/08/17 at 21:00 Mental Status Exam Appearance: Neat/well groomed Attitude: Cooperative, Guarded Behavior: Distractible Affect: Well Modulated/Appropriate (vocal, good eye contact, smiles appropriately, though withdrawn at times) Mood: Dysthymic, Other (smiles at times today) Thought Process/Associations: Logical/Sequential Speech Production: Soft Speech Rate: Lags/Latency Speech Articulation: Normal Thought Content: Negativistic, Suspicious Danger to Self/Suicidal Ideati: None Danger to Others: None Delusions: Paranoid Hallucinations: Auditory (Endorses), Other (seeing signs of God on the wall) Consciousness: Alert Orientation: Person, Place, Situation Memory: Short Term Memory (Impaired) Estimate Intellectual Function: Average Basis for IQ estimate: Word use/vocabulary, Educational history Attention/Concentration & Cogn: Impaired Insight: Limited Judgement: Limited Mental Health Plan Client is a 31-year-old, white female, who presents in a mute but 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 Previously, she had been in a catatonic state while here in our unit. She is a very poor historian. She does have a history of both schizophrenia and polysubstance abuse but her urine toxicology was negative at this time. It appears she has been noncompliant with her medications and has had a gradual return of anxiety initially and then acute psychosis. She could not participate in the interview, and I was unable to have an idea of her thoughts in the past. She has had intense feelings about God and multiple judaism delusions. During my session with her today she was much more related and had improved eye contact. She appeared to understand the treatment program and what she needed to do to regain her mental balance. [place] AXIS I 1. Schizophrenia, chronic, paranoid. 2. Substance abuse, polysubstance, currently sober. AXIS II Deferred. AXIS III None. AXIS IV Mild. AXIS V Current Global Assessment of Functioning equal to 35. Medications Clonazepam 05.mg PO HS Depakote-ER 1500mg PO HS Olanzapine 20mg PO HS Ambien 5-10mg PO HS PRN Lorazepam 1mg q4h PRN Vistaril 50mg PO Q4H PRN Nicotine 2mg Buccal Q6h Treatments 1. The patient is admitted to the inpatient unit and will be provided a safe and secure environment. 2. The patient is denying current active suicidality and is not in need of a one-to-one at this time. 3. The patient is encouraged to participate with group and milieu activities. 4. The patient will be seen by the treatment team on a daily basis to assess symptoms, side effects and response to treatment. 5. Depakote (QD) 1500mg at bedtime. 6. Olanzapine 20mg at bedtime 7. Klonopin 0.5 mg at bedtime 8. Patient will need additional inpatient stabilization 9. Anticipated length of stay up to 14 days Clayton Cash MD Mar 09, 2017 13:18
--- NOTE | 2017-03-09 13:46 | NUR ---
Nursing Note [id number] Behavior S/O: Pt has good appetite. Pt ate lunch by herself in the dining room. Pt in room laying on her bed most of the day with only brief times out of the unit. Pt d/n initiate conversation. Pt mumbles only when addressed by staff or peers. Pt's conversation is difficult to understand as she talks softly & d/n move her lips. Affect is sad. Poor eye contact. A: Pt is isolative & appears to be responding to internal stimuli. P: Provide supportive environment. Monitor medications & effects.
[2017-03-09 15:27] VITALS: BP 99/55; PULSE 80; RESP 16
[2017-03-09] MEDS: Alum-Mag Hydrox-Simeth 30 mL Suspension PO PRN (16:10)
--- NOTE | 2017-03-09 16:57 | NUR ---
Observations 0700 - 1900 Pt affect and mood bright, friendly, more social and active on the unit. Pt was pleasant, polite and cooperative when approached. Pt maintained behavior throughout the shift. Pt speech and eye contact was ok. Pt attended meals in D.R. and ate 100% of her meals. Pt ate snack. Pt was social with staff and peers. Pt was in bed, isolative most of the morning and early afternoon. Pt was observed every 15 minutes through the shift as ordered.
[2017-03-09] MEDS: Benzocaine-Menthol Lozenge 2/Pkg PO PRN (20:10)
[2017-03-09] MEDS: Divalproex (QD) 500 mg ER24 Tablet PO SCH (20:11)
--- NOTE | 2017-03-09 22:28 | NUR ---
NURSING NOTE [id number] Mood: "umm.. fine?" *rolls eyes* Affect: labile; mostly flat in interactions w/this functional tester typewriters but later angry when asked to take her HS meds. She is much brighter in interactions w/her peers as opposed to staff. Behavior: pt. social in milieu, engaging in long conversations w/peers. When speaking to staff she mostly gives short, oscar and occasionally sarcastic answers. Pt. is attending groups and structured activities on unit. This evening pt. was upset w/this functional tester typewriters when presented w/HS meds. Pt. insisted her medications were not what she was scheduled to take and that she had "never seen these before" and that "I don't need to take them". Pt. was educated and it was discussed that she had taken these same meds from this functional tester typewriters the evening prior but pt. did not agree and was very reluctant to take them. At one point she stormed off to her room and slammed her door. Eventually did take her meds but crushed the med cup and water cup in her hands in an angry manner and threw them on the ground in the direction of this functional tester typewriters before stomping off. Thought process: denies all psychiatric issues. Denies SI/HI. Reports she misses her children. Very poor insight into her condition and why she is here.
--- NOTE | 2017-03-10 06:26 | NUR ---
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 Pt slept for 6.75 hrs. Continue to monitor for mood changes, emotional wellbeing, and q15min checks for safety. Care continues.
--- NOTE | 2017-03-10 13:51 | PCM.PNPSY ---
Subjective Date of Service Mar 10, 2017 Subjective I spent 30 minutes both reviewing treatment plan with our clinical team, interviewing the patient and providing supportive/educational psychotherapy. I spent less than 50% of the time counseling the patient. I reviewed the treatment plan with the patient and discussed options available including the potential risks, benefits and side effects. [place] reports a slight improvement in thought organization and mood stability. Staff reports that she has been more active and participating better in one-to -one unit and group activities. She slept 7 hours and denies psychotic symptoms review. Both staff and myself continue to observe her responding to internal stimuli. She continues to behave somewhat guarded suspicious and paranoid. She denies medication side effects. Current Medications Current Medications Olanzapine 20 mg HS PO Last administered on 03/09/17t 20:11; Admin Dose 20 MG; Start 03/08/17 at 21:00 Mental Status Exam Appearance: Neat/well groomed Attitude: Cooperative, Guarded Behavior: Distractible Affect: Well Modulated/Appropriate (vocal, good eye contact, smiles appropriately, though withdrawn at times) Mood: Dysthymic, Other (smiles at times today) Thought Process/Associations: Logical/Sequential Speech Production: Soft Speech Rate: Lags/Latency Speech Articulation: Normal Thought Content: Negativistic, Suspicious Danger to Self/Suicidal Ideati: None Danger to Others: None Delusions: Paranoid Hallucinations: Auditory (Endorses), Other (seeing signs of God on the wall) Consciousness: Alert Orientation: Person, Place, Situation Memory: Short Term Memory (Impaired) Estimate Intellectual Function: Average Basis for IQ estimate: Word use/vocabulary, Educational history Attention/Concentration & Cogn: Impaired Insight: Limited Judgement: Limited Mental Health Plan Client is a 31-year-old, white female, who presents in a mute but 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 Previously, she had been in a catatonic state while here in our unit. She is a very poor historian. She does have a history of both schizophrenia and polysubstance abuse but her urine toxicology was negative at this time. It appears she has been noncompliant with her medications and has had a gradual return of anxiety initially and then acute psychosis. She could not participate in the interview, and I was unable to have an idea of her thoughts in the past. She has had intense feelings about God and multiple confucianist delusions. During my session with her today she was related and had improved eye contact. She appeared to understand the treatment program and what she needed to do to regain her mental balance. [place] AXIS I 1. Schizophrenia, chronic, paranoid. 2. Substance abuse, polysubstance, currently sober. AXIS II Deferred. AXIS III None. AXIS IV Mild. AXIS V Current Global Assessment of Functioning equal to 35. Medications Clonazepam 05.mg PO HS Depakote-ER 1500mg PO HS Olanzapine 20mg PO HS Ambien 5-10mg PO HS PRN Lorazepam 1mg q4h PRN Vistaril 50mg PO Q4H PRN Nicotine 2mg Buccal Q6h Treatments 1. The patient is admitted to the inpatient unit and will be provided a safe and secure environment. 2. The patient is denying current active suicidality and is not in need of a one-to-one at this time. 3. The patient is encouraged to participate with group and milieu activities. 4. The patient will be seen by the treatment team on a daily basis to assess symptoms, side effects and response to treatment. 5. Depakote (QD) 1500mg at bedtime. 6. Olanzapine 20mg at bedtime 7. Klonopin 0.5 mg at bedtime 8. Patient will need additional inpatient stabilization 9. Anticipated length of stay up to 14 days Clayton Cash MD Mar 10, 2017 13:51
--- NOTE | 2017-03-10 14:09 | NUR ---
nursing note 7-3pm S)"i don't know if I should be wearing this it was Blanca's (former patients shirt)" O) pt verbal and friendly with select peers, did talk a bit with this sports book writer, denies anxiety or depression, participating in art group, ate meals no complaints A)flat affect, compliant, more social P) monitor behavior and medication effectiveness
[2017-03-10] MEDS: Benzocaine-Menthol Lozenge 2/Pkg PO PRN (17:29)
--- NOTE | 2017-03-10 18:38 | NUR ---
NURSING NOTE [id number] Mood: "fine" Affect: flat, w/some brighter moments Behavior: social w/peers, attending all groups, spent time out on the patio w/peers, asking for PRN throat lozenges but denies cold sx. Thought processes: pt. denies any disturbed thought content, denies SI/HI/AH/VH. Continues to show lack of insight into her condition and need for medications.
[2017-03-10] MEDS: Divalproex (QD) 500 mg ER24 Tablet PO SCH (20:48)
--- NOTE | 2017-03-11 05:29 | NUR ---
Nursing Note Assistant Drafter 11pm to 7am Pt asleep at start of shift. Awoke at 0315 to get a drink and went back to bed. Monitor pt q 15 minute face checks for safety, location and accountability
--- NOTE | 2017-03-11 13:23 | PCM.PNPSY ---
Subjective Date of Service Mar 11, 2017 Subjective I spent 30 minutes both reviewing treatment plan with our clinical team, interviewing the patient and providing supportive/educational psychotherapy. I spent less than 50% of the time counseling the patient. I reviewed the treatment plan with the patient and discussed options available including the potential risks, benefits and side effects. [place] reports a slight improvement in thought organization and mood stability. Staff reports that she has been more active and participating better in one-to -one unit and group activities. She slept 5.25 hours and denies psychotic symptoms review. Both staff and myself continue to observe her responding to internal stimuli. She continues to behave in a guarded suspicious and paranoid. She was able to identify her medications and what they were used to treat. Mental Status Exam Appearance: Neat/well groomed Attitude: Cooperative, Guarded Behavior: Distractible Affect: Well Modulated/Appropriate (vocal, good eye contact, smiles appropriately, though withdrawn at times) Mood: Dysthymic, Other (smiles at times today) Thought Process/Associations: Logical/Sequential Speech Production: Soft Speech Rate: Lags/Latency Speech Articulation: Normal Thought Content: Negativistic, Suspicious Danger to Self/Suicidal Ideati: None Danger to Others: None Delusions: Paranoid Hallucinations: Auditory (Endorses), Other (seeing signs of God on the wall) Consciousness: Alert Orientation: Person, Place, Situation Memory: Short Term Memory (Impaired) Estimate Intellectual Function: Average Basis for IQ estimate: Word use/vocabulary, Educational history Attention/Concentration & Cogn: Impaired Insight: Limited Judgement: Limited Mental Health Plan Patient is a 31-year-old, white female, who presents in a mute but 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 Previously, she had been in a catatonic state while here in our unit. She is a very poor historian. She does have a history of both schizophrenia and polysubstance abuse but her urine toxicology was negative at this time. It appears she has been noncompliant with her medications and has had a gradual return of anxiety initially and then acute psychosis. She could not participate in the interview, and I was unable to have an idea of her thoughts in the past. She has had intense feelings about God and multiple baptist delusions. Patient is observed to have improved speech, mood, and affect. Though, affect is still significantly labile and somewhat irritable. She has a suspicious attitude towards taking her medication. [place] AXIS I 1. Schizophrenia, chronic, paranoid. 2. Substance abuse, polysubstance, currently sober. AXIS II Deferred. AXIS III None. AXIS IV Mild. AXIS V Current Global Assessment of Functioning equal to 35. Medications Clonazepam 05.mg PO HS Depakote-ER 1500mg PO HS Olanzapine 20mg PO HS Ambien 5-10mg PO HS PRN Lorazepam 1mg q4h PRN Vistaril 50mg PO Q4H PRN Nicotine 2mg Buccal Q6h Treatments 1. The patient is admitted to the inpatient unit and will be provided a safe and secure environment. 2. The patient is denying current active suicidality and is not in need of a one-to-one at this time. 3. The patient is encouraged to participate with group and milieu activities. 4. The patient will be seen by the treatment team on a daily basis to assess symptoms, side effects and response to treatment. 5. Depakote (QD) 1500mg at bedtime. 6. Olanzapine 20mg at bedtime 7. Klonopin 0.5 mg at bedtime 8. Patient will need additional inpatient stabilization 9. Anticipated length of stay up to 14 days, LR expires on 03/20/2017 Attending Statement I met with patient and reviewed the course w/ , and nursing staff. I interviewed patient I agree w Dr Becker assessment and plan Preet Melara DO Mar 11, 2017 13:23 Clayton Cash MD Mar 12, 2017 14:18
[2017-03-11] MEDS: Benzocaine-Menthol Lozenge 2/Pkg PO PRN (13:53)
--- NOTE | 2017-03-11 18:50 | NUR ---
NURS NOTE DAY Mood: "I'm depressed because my family is not together." Endorses depression. Denies anxiety. Affect: Restricted. Thought Process/Content: "I hear the voices calling me to God." Vaguely endorses AH, VH. Denies SI, HI. Behavior: Interacting appropriately with other pts. Isolated in room much of day. PRNs/NURS: PRN nicotine and cepacol lozenges.
--- NOTE | 2017-03-11 20:18 | NUR ---
Obs Dayshift Pt spent most of the day hovering around her room out in the hallway. Engages a little w/ few peers, soft spoken, smiling often, appears to be listening and watching staff and peers around her. Pt is polite, quiet, withdrawn and child like. Ok ADL's, Good meals
[2017-03-11] MEDS: Divalproex (QD) 500 mg ER24 Tablet PO SCH (20:33)
--- NOTE | 2017-03-12 04:23 | NUR ---
Nursing, NOC 7pm-7am Patient visible in room and on unit. Flat affect, seems brighter with peers. Delayed speech. Calm and cooperative. Medication compliant. PRN Ambien given @ 2200 which was fairly effective. Continue with Q15 min safety/room checks thru the NOC.
--- NOTE | 2017-03-12 11:40 | PCM.PNPSY ---
Subjective Date of Service Mar 12, 2017 Subjective I spent 30 minutes both reviewing treatment plan with our clinical team, interviewing the patient and providing supportive/educational psychotherapy. I spent less than 50% of the time counseling the patient. I reviewed the treatment plan with the patient and discussed options available including the potential risks, benefits and side effects. [place] reports a slight improvement in thought organization and mood stability. Staff reports that she has been active and participating better in one-to-one unit and group activities. She slept 6.25 hours and denies psychotic symptoms review. Both staff and myself continue to observe her responding to internal stimuli. She continues to behave in a guarded suspicious and paranoid. Patient believes her drowsiness are due to the sedative effects of her medication. She was able to identify her medications and what they were used to treat. Mental Status Exam Appearance: Neat/well groomed Attitude: Cooperative, Guarded Behavior: Distractible Affect: Flat, Other (incongruent affect and mood) Mood: Depressed (tearful, missed her children), Other Thought Process/Associations: Logical/Sequential Speech Production: Soft Speech Rate: Lags/Latency Speech Articulation: Normal Thought Content: Negativistic, Suspicious Danger to Self/Suicidal Ideati: None Danger to Others: None Delusions: Paranoid (medication) Hallucinations: Auditory (Endorses), Other (seeing signs of God on the wall) Consciousness: Alert Orientation: Person, Place, Situation Memory: Short Term Memory (Impaired) Estimate Intellectual Function: Average Basis for IQ estimate: Word use/vocabulary, Educational history Attention/Concentration & Cogn: Impaired Insight: Limited Judgement: Limited Mental Health Plan Patient is a 31-year-old, white female, who presents in a mute but 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 Previously, she had been in a catatonic state while here in our unit. She is a very poor historian. She does have a history of both schizophrenia and polysubstance abuse but her urine toxicology was negative at this time. It appears she has been noncompliant with her medications and has had a gradual return of anxiety initially and then acute psychosis. She could not participate in the initial evaluation, and was unable to have an idea of her thoughts in the past. She has had intense feelings about God and multiple yazidi delusions. Patient is observed to have improved speech, mood, and affect. Though, she exhibited incongruent mood and affect in addition to suspicious attitude towards taking her medication. [place] AXIS I 1. Schizophrenia, chronic, paranoid. 2. Substance abuse, polysubstance, currently sober. AXIS II Deferred. AXIS III None. AXIS IV Mild. AXIS V Current Global Assessment of Functioning equal to 35. Medications Clonazepam 05.mg PO HS Depakote-ER 1500mg PO HS Olanzapine 20mg PO HS Ambien 5-10mg PO HS PRN Lorazepam 1mg q4h PRN Vistaril 50mg PO Q4H PRN Nicotine 2mg Buccal Q6h Treatments 1. The patient is admitted to the inpatient unit and will be provided a safe and secure environment. 2. The patient is denying current active suicidality and is not in need of a one-to-one at this time. 3. The patient is encouraged to participate with group and milieu activities. 4. The patient will be seen by the treatment team on a daily basis to assess symptoms, side effects and response to treatment. 5. Depakote (QD) 1500mg at bedtime. 6. Olanzapine 15mg at bedtime. Decrease from olanzapine 20mg HS 03/12/2017 7. Klonopin 0.5 mg at bedtime 8. D/C lorazepam 1 mg PRN and Ambien 5-10 mg PRN per patient due to sedative effect 03/12/2017 8. Patient will need additional inpatient stabilization 9. Anticipated length of stay up to 14 days, LR expires on 03/20/2017 Attending Statement I met with patient and reviewed the course w/ , and nursing staff. I interviewed patient I agree w Dr Becker assessment and plan Preet Melara DO Mar 12, 2017 11:40 Clayton Cash MD Mar 12, 2017 14:18
--- NOTE | 2017-03-12 18:15 | NUR ---
NURS NOTE DAY Mood: Endorses depression 04/21. Denies anxiety. Affect: Restricted. Thought Process/Content: "The voices told me to get up, brush my teeth, and come out here." Endorses AH. Denies VH. Denies SI, HI. Behavior: Out in common areas much of shift, interacting with peers and staff. PRNs/NURS: PRN nicotine lozenges.
--- NOTE | 2017-03-12 18:46 | NUR ---
Obs Dayshift Pt has little change from the last 2 days. At times she will be standing in the hallway observing peers and staff, quiet, and soft spoken. Other times she she is joking, quick witted, smiling, good eye contact and communicating well. Pt is friendly w/ peers, states that she has spent time w/ some of her peers outside of the Hospital. Spends time in her room, quiet, calm and appropriate. Good ADL's, Good meals
[2017-03-12] MEDS: Divalproex (QD) 500 mg ER24 Tablet PO SCH (20:43)
[2017-03-12] MEDS: Benzocaine-Menthol Lozenge 2/Pkg PO PRN (20:45)
--- NOTE | 2017-03-13 13:24 | NUR ---
Nursing Note [id number] Behavior S/O: Pt out in milieu most of the morning. Little interaction with peers observed, but pleasant & cooperative. Better eye contact. Still continues to avoid some eye contact. Able to verbalize needs & wants with staff. Voice is soft, but understandable. Pt requested to shower. Good appetite. A: Pt con't to be slightly paranoid. She has had some improvement since last week in ability to socialize better. P: Provide supportive environment. Monitor medications & effects.
--- NOTE | 2017-03-13 15:28 | PCM.PNPSY ---
Subjective Date of Service Mar 13, 2017 Subjective I spent 30 minutes both reviewing treatment plan with our clinical team, interviewing the patient and providing supportive/educational psychotherapy. I spent less than 50% of the time counseling the patient. I reviewed the treatment plan with the patient and discussed options available including the potential risks, benefits and side effects. [place] reports a slight improvement in thought organization and mood stability. Staff reports that she has been active and participating better in one-to-one unit and group activities. Patient reports good sleep. Today, patient endorses continuing to hear the voice of God and "others". Both staff and myself continue to observe her responding to internal stimuli albeit, less. She continues to behave in a guarded suspicious and paranoid. Patient believes her drowsiness are due to the sedative effects of her medication, though attenuates with the decrease of olanzapine, and the discontinuation of Ativan and Ambien PRN. She was able to identify her medications and what they were used to treat. Current Medications Clonazepam 0.5 mg nightly Depakote ER 50 mg nightly Olanzapine 15 mg nightly Mental Status Exam Appearance: Neat/well groomed Attitude: Cooperative, Guarded Behavior: Distractible Affect: Flat, Other (incongruent affect and mood) Mood: Depressed (tearful, missed her children), Other Thought Process/Associations: Logical/Sequential Speech Production: Soft Speech Rate: Lags/Latency Speech Articulation: Normal Thought Content: Negativistic, Suspicious Danger to Self/Suicidal Ideati: None Danger to Others: None Delusions: Paranoid (medication) Hallucinations: Auditory (Endorses), Other (seeing signs of God on the wall) Consciousness: Alert Orientation: Person, Place, Situation Memory: Short Term Memory (Impaired) Estimate Intellectual Function: Average Basis for IQ estimate: Word use/vocabulary, Educational history Attention/Concentration & Cogn: Impaired Insight: Limited Judgement: Limited Mental Health Plan Patient is a 31-year-old, white female, who presents in a mute but 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 Previously, she had been in a catatonic state while here in our unit. She is a very poor historian. She does have a history of both schizophrenia and polysubstance abuse but her urine toxicology was negative at this time. It appears she has been noncompliant with her medications and has had a gradual return of anxiety initially and then acute psychosis. She could not participate in the initial evaluation, and was unable to have an idea of her thoughts in the past. She has had intense feelings about God and multiple confucianist delusions. Patient is observed to have no changes in speech, mood, and affect from yesterday, however, much improved compared to admission. She continues to exhibited incongruent mood and affect in addition to suspicious attitude towards taking her medication. [place] AXIS I 1. Schizophrenia, chronic, paranoid. 2. Substance abuse, polysubstance, currently sober. 3. Tobacco use disorder AXIS II Deferred. AXIS III None. AXIS IV Mild. AXIS V Current Global Assessment of Functioning equal to 35. Medications Clonazepam 05.mg PO HS Depakote-ER 1500mg PO HS Olanzapine 20mg PO HS Ambien 5-10mg PO HS PRN Lorazepam 1mg q4h PRN Vistaril 50mg PO Q4H PRN Nicotine 2mg Buccal Q6h Treatments 1. The patient is admitted to the inpatient unit and will be provided a safe and secure environment. 2. The patient is denying current active suicidality and is not in need of a one-to-one at this time. 3. The patient is encouraged to participate with group and milieu activities. 4. The patient will be seen by the treatment team on a daily basis to assess symptoms, side effects and response to treatment. 5. Depakote (QD) 1500mg at bedtime. 6. Olanzapine 15mg at bedtime. Decrease from olanzapine 20mg HS 03/12/2017 7. Klonopin 0.5 mg at bedtime 8. D/C lorazepam 1 mg PRN and Ambien 5-10 mg PRN per patient due to sedative effect 03/12/2017 8. Patient will need additional inpatient stabilization 9. Anticipated length of stay up to 14 days, LR expires on 03/20/2017 Preet Melara DO Mar 13, 2017 15:28
--- NOTE | 2017-03-13 15:55 | NUR ---
Obs Dayshift Pt has little change from the last 2 days. At times she will be standing in the hallway observing peers and staff, quiet, and soft spoken. Other times she she is joking, quick witted, smiling, good eye contact and communicating well. Pt is friendly w/ peers, went into the group room to play Wii, ping pong, and art w/ some peers. Spends time in her room, quiet, calm and appropriate. Good ADL's, Good meals
[2017-03-13 16:25] VITALS: BP 129/76; PULSE 80; RESP 16
[2017-03-13] MEDS: Divalproex (QD) 500 mg ER24 Tablet PO SCH (21:02)
--- NOTE | 2017-03-13 21:31 | NUR ---
behavior: pt. standing at med door room, took meds, pt. still standing ther talking slowly, attempting to make eye contact and smile. pt. stated 'I believe I deserve love", agreed with pt. slowly walked away, mood still slightly flat and depressed.
--- NOTE | 2017-03-13 21:57 | NUR ---
NURSING NOTE [id number] Mood: "good" Affect: pleasant, calm, cooperative Behavior: pt. is social w/peers and is seen carrying long conversations w/them. Still a bit guarded when speaking to this advertising copy writer but is opening up more than the last few evenings prior and jokes and laughs appropriately in conversation. Visible in milieu all shift. Attending groups. Med compliant. Thought processes: pt. denies any current psychiatric issues, but did state after speaking w/a fellow pt. about his plans to enter a long-term CD treatment program that she too wanted to enter into some sort of CD treatment. She reported that while she has not been using recently she does still have cravings and she thinks it would help her to have services. Also states she thinks that would help w/the visitation conditions for her to see her son. Denies SI/HI. No delusional thought content noted this shift.
[2017-03-14 09:04] LABS: BASOPHILS % (AUTO) 0.3 % (0-3); EOSINOPHILS % (AUTO) 4.7 % (0-5); MONOCYTES % (AUTO) 5.7 % (4-12); Mean Corpuscular Hemoglobin 32.6 pg (27.0-35.0); Mean Corpuscular Volume 97.3 fL (81-100); NEUTROPHILS % (AUTO) 50.3 % (40-74); Platelet Count 156 bil/L (150-400)
[2017-03-14 10:00] VITALS: BP 116/71; PULSE 78; RESP 16
--- NOTE | 2017-03-14 11:05 | PCM.PNPSY ---
Subjective Date of Service Mar 14, 2017 Subjective I spent 30 minutes both reviewing treatment plan with our clinical team, interviewing the patient and providing supportive/educational psychotherapy. I spent less than 50% of the time counseling the patient. I reviewed the treatment plan with the patient and discussed options available including the potential risks, benefits and side effects. [place] reports no improvement in thought organization and mood stability. Staff reports that she has been active and participating better in one-to-one unit and group activities. Staff reports 5.75hr sleep overnight and denies any psychotic symptoms on review. Both staff and myself continue to observe her responding to internal stimuli albeit, less. She continues to behave in a guarded suspicious and paranoid. Patient believes her drowsiness are due to the sedative effects of her medication, though attenuates with the decrease of olanzapine, and the discontinuation of Ativan and Ambien PRN. Pt admits to discontinue her antipsychotic medication once discharge, and instead smoke marijuana to help her psychosis. She was able to identify her medications and what they were used to treat. Current Medications Current Medications Olanzapine 15 mg HS PO Last administered on 03/13/17t 21:02; Admin Dose 15 MG; Start 03/12/17 at 21:00 Mental Status Exam Appearance: Neat/well groomed Attitude: Cooperative, Guarded Behavior: Distractible Affect: Flat, Other (incongruent affect and mood) Mood: Depressed (tearful, missed her children), Other Thought Process/Associations: Logical/Sequential Speech Production: Soft Speech Rate: Lags/Latency Speech Articulation: Normal Thought Content: Negativistic, Suspicious Danger to Self/Suicidal Ideati: None Danger to Others: None Delusions: Paranoid (medication) Hallucinations: Auditory (Endorses), Other (seeing signs of God on the wall) Consciousness: Alert Orientation: Person, Place, Situation Memory: Short Term Memory (Impaired) Estimate Intellectual Function: Average Basis for IQ estimate: Word use/vocabulary, Educational history Attention/Concentration & Cogn: Impaired Insight: Limited Judgement: Limited Result Diagram: 03/14/17 0416 Mental Health Plan Patient is a 31-year-old, white female, who presents in a mute but 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 Previously, she had been in a catatonic state while here in our unit. She is a very poor historian. She does have a history of both schizophrenia and polysubstance abuse but her urine toxicology was negative at this time. It appears she has been noncompliant with her medications and has had a gradual return of anxiety initially and then acute psychosis. She could not participate in the initial evaluation, and was unable to have an idea of her thoughts in the past. She has had intense feelings about God and multiple mandaen delusions. Patient is observed to have no changes in speech, mood, and affect from yesterday, however, much improved compared to admission. She continues to exhibited incongruent mood and affect in addition to suspicious attitude towards taking her medication. [place] AXIS I 1. Schizophrenia, chronic, paranoid. 2. Substance abuse, polysubstance, currently sober. 3. Tobacco use disorder AXIS II Deferred. AXIS III Dyslipidemia AXIS IV Mild. AXIS V Current Global Assessment of Functioning equal to 35. Medications Clonazepam 05.mg PO HS Depakote-ER 1500mg PO HS Olanzapine 20mg PO HS Ambien 5-10mg PO HS PRN Lorazepam 1mg q4h PRN Vistaril 50mg PO Q4H PRN Nicotine 2mg Buccal Q6h Treatments 1. The patient is admitted to the inpatient unit and will be provided a safe and secure environment. 2. The patient is denying current active suicidality and is not in need of a one-to-one at this time. 3. The patient is encouraged to participate with group and milieu activities. 4. The patient will be seen by the treatment team on a daily basis to assess symptoms, side effects and response to treatment. 5. Depakote (QD) 1500mg at bedtime. 6. Olanzapine 15mg at bedtime. Decrease from olanzapine 20mg HS 03/12/2017 7. Klonopin 0.5 mg at bedtime 8. D/C lorazepam 1 mg PRN and Ambien 5-10 mg PRN per patient due to sedative effect 03/12/2017 8. Patient will need additional inpatient stabilization 9. File for a 90 day MR Attending Statement I met with the patient and discussed the course with Dr. Melara agree with his assessment and plan. Preet Melara DO Mar 14, 2017 11:05 Clayton Cash MD Mar 14, 2017 11:51
--- NOTE | 2017-03-14 14:56 | NUR ---
Nursing Note [id number] S/O: Pt out in milieu. She is smiling & talking with peers. Able to talk normally with peers & on the phone. She has declined medications prior to going to court tomorrow. She states, "Dr. Cash is going to wean me off my meds....I don't like the other doctor. He wants to make me take meds....The meds make my stomach hurt." Pt has good appetite. A: Pt has little insight into illness & need for medication. P: Provide supportive environment. Monitor medications & effects.
--- NOTE | 2017-03-14 17:50 | NUR ---
[facility] Day Shift Pt maintained behavioral control throughout the shift. Pt affect appears mostly euthymic, occasionally flat. Pt spends most of the shift interacting with peers and engaging in unit activities. Pt is pleasant and appropriate with staff and peers when active on the unit. Pt appears much less latent and internally preoccupied compared to previous shifts. Pt attended all group activities and participated actively. Pt attended all meals and ate approx 100% of all meals.
[2017-03-14] MEDS: Divalproex (QD) 500 mg ER24 Tablet PO SCH (19:38)
--- NOTE | 2017-03-15 04:34 | NUR ---
NOC PT is greatly improved and appears to be close to her baseline. PT is in dayroom and talking with other clients. She can be seen laughing quite a bit and has a bright affect. PT declined to take any HS med because of court tomorrow. PT answers questions appropriately and denies any SI/HI. PT will likely d/c soon and will hopefuly have PACT supervision outpt for f/u care. WIll continue with current POC and monitor for any changes in mood or A/R to meds.
[2017-03-15] MEDS: Benzocaine-Menthol Lozenge 2/Pkg PO PRN (08:39)
[2017-03-15 10:10] VITALS: BP 130/73; PULSE 81; RESP 16
--- NOTE | 2017-03-15 12:15 | PCM.PNPSY ---
Subjective Date of Service Mar 15, 2017 Subjective I spent 30 minutes both reviewing treatment plan with our clinical team, interviewing the patient and providing supportive/educational psychotherapy. I spent less than 50% of the time counseling the patient. I reviewed the treatment plan with the patient and discussed options available including the potential risks, benefits and side effects. [place] reports significant improvement in thought organization and mood stability. Staff reports that she has been active and participating better in one-to-one unit and group activities. Staff reports 5.5hr sleep overnight. Patient endorses to auditory hallucination, reports hearing demonic voices from time to time. She denies acting on these voices however, did in the past. She admits to running naked in the street prior to this admission. Both staff and myself continue to observe her responding to internal stimuli albeit, less. She is observed with only mildly guarded suspicious and paranoid. Patient believes her drowsiness are due to the sedative effects of her medication, though attenuates with the decrease of olanzapine, and the discontinuation of Ativan and Ambien PRN. Today, pt is motivated to be discharge next week, she agrees that it is with her in her best interest to adheres to her medications. Barriers however, continues to be the demonic voice telling her not to. She was able to identify her medications and what they were used to treat. Current Medications Current Medications Nicotine 1 patch DAILY TOPICAL Last administered on 03/15/17t 11:47; Admin Dose 1 PATCH; Start 03/15/17 at 10:20 Clonazepam 0.5 mg nightly Depakote ER 5000 mg nightly Olanzapine 15 mg nightly Mental Status Exam Appearance: Neat/well groomed Attitude: Cooperative, Guarded Behavior: Distractible Affect: Flat, Other (incongruent affect and mood) Mood: Depressed (tearful, missed her children), Other Thought Process/Associations: Logical/Sequential Speech Production: Soft Speech Rate: Lags/Latency Speech Articulation: Normal Thought Content: Negativistic, Suspicious Danger to Self/Suicidal Ideati: None Danger to Others: None Delusions: Paranoid (medication) Hallucinations: Auditory (demonic voices. ), Other (seeing signs of God on the wall) Consciousness: Alert Orientation: Person, Place, Situation Memory: Short Term Memory (Impaired) Estimate Intellectual Function: Average Basis for IQ estimate: Word use/vocabulary, Educational history Attention/Concentration & Cogn: Impaired Insight: Limited Judgement: Limited Result Diagram: 03/14/17 0830 Mental Health Plan Patient is a 31-year-old, white female, who presents in a mute but 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 Previously, she had been in a catatonic state while here in our unit. She is a very poor historian. She does have a history of both schizophrenia and polysubstance abuse but her urine toxicology was negative at this time. It appears she has been noncompliant with her medications and has had a gradual return of anxiety initially and then acute psychosis. She could not participate in the initial evaluation, and was unable to have an idea of her thoughts in the past. She has had intense feelings about God and multiple restoration delusions. Patient is observed to have improved changes in speech, mood, and affect from yesterday and overall. Mood and affect are congruent. Patient still harbor suspiciousness towards taking her medication. This is in part due to demonic voices he continues to hear, though less. [place] AXIS I 1. Schizophrenia, chronic, paranoid. 2. Substance abuse, polysubstance, currently sober. 3. Tobacco use disorder AXIS II Deferred. AXIS III Dyslipidemia AXIS IV Mild. AXIS V Current Global Assessment of Functioning equal to 35. Medications Clonazepam 05.mg PO HS Depakote-ER 1500mg PO HS Olanzapine 20mg PO HS Ambien 5-10mg PO HS PRN Lorazepam 1mg q4h PRN Vistaril 50mg PO Q4H PRN Nicotine 2mg Buccal Q6h Treatments 1. The patient is admitted to the inpatient unit and will be provided a safe and secure environment. 2. The patient is denying current active suicidality and is not in need of a one-to-one at this time. 3. The patient is encouraged to participate with group and milieu activities. 4. The patient will be seen by the treatment team on a daily basis to assess symptoms, side effects and response to treatment. 5. Depakote (QD) 1500mg at bedtime. 6. Olanzapine 15mg at bedtime. Decrease from olanzapine 20mg HS 03/12/2017 7. Klonopin 0.5 mg at bedtime 8. D/C lorazepam 1 mg PRN and Ambien 5-10 mg PRN per patient due to sedative effect 03/12/2017 8. Patient will need additional inpatient stabilization 9. File for a 90 day MR on 03/19. Preet Melara DO Mar 15, 2017 12:14
--- NOTE | 2017-03-15 14:23 | NUR ---
Nursing Note [id number] Behavior S/O: Pt out in milieu. She has been appropriate with peers & staff. Conversation tracking clear & organized with normal rate & rhythm. Full affect. Good eye contact. Pt requesting clothes so that she could go to court this morning. Pt con't to believe she doesn't need medications. A: Pt is improving. She has little insight into need for medications to maintain mental stability. P: Provide supportive environment. Monitor medications & effects.
--- NOTE | 2017-03-15 18:48 | NUR ---
Observations 0900 - 2130 Pt affect and mood was friendly, social and content. Pt was pleasant, polite and cooperative when approached. Pt maintained behavior throughout the shift. Pt speech and eye contact was good. Pt attended meals in D.R. and ate 100% of her meals. Pt ate snack. Pt attended group and unit activities. Pt was social with staff and peers. Pt did some coloring in D.R. and appeared to be enjoying this. Pt was observed every 15 minutes through the shift as ordered.
[2017-03-15] MEDS: Divalproex (QD) 500 mg ER24 Tablet PO SCH (20:20)
--- NOTE | 2017-03-16 05:32 | NUR ---
nursing, nights, 11-7 s/o- has appeared to sleep after midnight during q 15 minute assessments. a- no apparent distress. p- monitor behavior/emotional state, quality, times and amount of sleep, use and effect of medication. milly
[2017-03-16 09:15] VITALS: BP 111/73; PULSE 79; RESP 16
--- NOTE | 2017-03-16 14:01 | NUR ---
Day Shift Nursing Note S/O-"I need to apologize to the doctor... maybe I do need cholesterol medication." "I think the Olanzapine is making my hair fall out: I know I should not be doing drugs on the outside but I sometimes feel like the brown are coming in on me at my apt. just like they are here." Pt. stated she slept well last night. She has a good appetite. She presents with a flat affect. She tends to jump from subject to subject with conversation. She denies SI or hallucinations. She denies depression but does have some anxiety about leaving the hospital. She stated her counselor helps outside the hospital but she feels they do not really listen to her. Her room is disheveled. She is well groomed and cooperative with staff. A-Lack of insight. Appears to have internal stimuli. P-Monitor for safety per protocol. Assess efficacy of meds to manage target sxs. Encourage engagement with peers. Teach better coping techniques.
--- NOTE | 2017-03-16 14:13 | PCM.PNPSY ---
Subjective Date of Service Mar 16, 2017 Subjective The patient seemed mildly irritable this morning as she had missed her coffee as "was sent up on the tray "smelled like cigarettes... A bottle of eternal stench." She stated that she was looking forward to leaving and that she was "just tired of being here." The patient was also upset that her cholesterol and triglycerides were slightly elevated which she attributed to medication. We discussed alternative medications and she reported thoughts aripiprazole had caused gambling issues and should not tolerated Risperdal or haloperidol. She requested a dietitian consultation. The patient also agreed to start atorvastatin. No other side effects reported. Sleep: "Fine" Appetite: "Okay" Suicidal and homicidal ideation: Denies Auditory hallucinations: Denies Visual hallucinations: Denies Other Psychotic Symptoms: Withdrawn speaking softly Anxiety: "Fine" Depression: "Not really" Current Medications Current Medications Nicotine 1 patch DAILY TOPICAL Last administered on 03/16/17t 08:34; Admin Dose 1 PATCH; Start 03/15/17 at 10:20 Mental Status Exam Vital Signs Vital Signs Date Time Temp Pulse Resp B/P Pulse Ox O2 Delivery O2 Flow Rate FiO2 03/16/17 09:15 36.5 79 16 111/73 Appearance: Neat/well groomed Attitude: Cooperative, Guarded Behavior: Distractible Affect: Flat, Other (incongruent affect and mood) Mood: Irritable (mildly) Thought Process/Associations: Logical/Sequential Speech Production: Soft Speech Rate: Lags/Latency Speech Articulation: Normal Thought Content: Negativistic, Suspicious Danger to Self/Suicidal Ideati: None Danger to Others: None Delusions: Paranoid (medication) Hallucinations: Auditory (denies), Visual (Denies) Consciousness: Alert Orientation: Person, Place, Situation Memory: Short Term Memory (Impaired) Estimate Intellectual Function: Average Basis for IQ estimate: Word use/vocabulary, Educational history Attention/Concentration & Cogn: Impaired Insight: Limited Judgement: Limited Result Diagram: 03/14/17 8880 Mental Health Plan Patient 31yo female with significant history of schizophrenia with medication non compliance. The patient has responded well once home olanzapine and Depakote restarted and titrated while adding clonazepam. Mood improved. Affect is somewhat restricted. She has reported experiencing signs of God while looking at brown but denies this today and denies auditory hallucinations today. The patient still shows minimal insight into her need for treatment and ongoing medications. She is, however, agreeable to continuing medications at this time and starting atorvastatin as she believes that since she has resisted medical treatments in the past and has had bad outcome she does not wish this to happen again. The patient's olanzapine was decreased on 03/12 to 15 mg nightly and the patient appears to have persisted in having psychotic symptoms and is more withdrawn. [place] AXIS I 1. Schizophrenia, chronic, paranoid. 2. Substance abuse, polysubstance, currently sober. 3. Tobacco use disorder AXIS II Deferred. AXIS III Dyslipidemia AXIS IV Mild. AXIS V Current Global Assessment of Functioning equal to 35. Medications Olanzapine 20mg PO HS Depakote-ER 1500mg PO HS Vistaril 50mg PO Q4H PRN Nicotine 14 mg patch daily Nicotine 2mg Buccal Q6h Treatments 1. The patient is admitted to the inpatient unit and will be provided a safe and secure environment. 2. The patient is denying current active suicidality and is not in need of a one-to-one at this time. 3. The patient is encouraged to participate with group and milieu activities. 4. The patient will be seen by the treatment team on a daily basis to assess symptoms, side effects and response to treatment. 5. Depakote (QD) 1500mg at bedtime. Check a CMP and Depakote level in a.m. 6. Return olanzapine to 20mg HS 7. Discontinue clonazepam due to sedation. 8. Patient will need additional inpatient stabilization 9. May need to file for a 90 day MR on 03/19. Quinn Rosen MD Mar 16, 2017 14:13 Quinn Rosen MD Mar 16, 2017 14:13
--- NOTE | 2017-03-16 16:25 | NUR ---
Observations 0700 to 1900 Pt ate a snack. Pt showered and had clothes washed. Pt is social with peers and spends time coloring in common area. Pt is pleasant and cooperative. Pt maintained behavioral control and showed minimal signs of abnormal behavior. Pt did express frustrations about medications affecting weight: Ill just not take them when I get out of here and work on my diet. Encouraged pt to speak with psychiatrist about side effects of medications. Staff completed 15 min close observations as ordered.
[2017-03-16] MEDS: Divalproex (QD) 500 mg ER24 Tablet PO SCH (20:34)
--- NOTE | 2017-03-16 22:39 | NUR ---
fence machine operator [id number] Pt participated in wrap up group with peers and socialized well. Appropriately smiling and pleasant. No behavioral or outburst noted. Pt stated, "I now know that the psychiatric and you all are not against me." Pt took all medications this HS without issues noted. Continue to monitor for mood changes, emotional wellbeing, and q15min checks for safety. Care continues.
--- NOTE | 2017-03-17 05:31 | NUR ---
nursing, nights, 11-7 s/o- has appeared to sleep 2315 during q 15 minute assessments. a- no apparent distress. p- monitor behavior/emotional state, quality, times and amount of sleep, use and effect of medication. milly
[2017-03-17 09:00] VITALS: BP 131/83; PULSE 88; RESP 19
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
--- NOTE | 2017-03-17 17:43 | NUR ---
Observations [id number] Pt more active on unit then observed in previous shifts. She attended all meals, eating 100%. Pt observed to be more communicative with staff and peers, coloring in the dining room and spending time on the patio. Pt good with ADL's, showering and doing laundry. Pt attended all meals, eating 100%. She was observed every 15 minutes of shift as directed.
[2017-03-17] MEDS: Divalproex (QD) 500 mg ER24 Tablet PO SCH (19:48)
--- NOTE | 2017-03-18 03:06 | NUR ---
7p-7a PT's mood is improved and affect is brighter. PT spends a lot of time in dayroom and talking with other pts. WHen asked how she is doing pt reports "I think I am feeling the best I can and today was a positive day." Discussed with pt the importance of med compliance when she is d/c'd. PT is agreeable to being on them but says "I am not going to stay on them forever. THey F...d up my body enough as it is." PT also states that she has problems with her meds when she uses "hard drugs." PT states she plans on staying away from them. PT refused lipitor this radha as she told this RN that her mother said it has too many bad side effects and she wanted to try a different one. RN told her to discuss this with MD in am. PT agreeable. PT has been sleeping well per usual so far tonight. Plan is to continue with current regimen and hopefully meeting will go well with social media assistant on Saturday and possible d/c Saturday. Will CTM for any A/R.
[2017-03-18 09:07] VITALS: BP 118/73; PULSE 66; RESP 18
--- NOTE | 2017-03-18 14:55 | NUR ---
Nursing Dayshift Pt visible on the unit visiting with a select male peer. She is cooperative on the unit but states "I have a problem with the medications because of side effects". Pt unwilling to state what side effects she is having. She rolled her eyes and stated "Many" and walked away. She reported she does not want to take medication when she leaves. Pt's telehealth case manager from [facility] is currently visiting with the patient. No complaints or behavior problems on the unit.
--- NOTE | 2017-03-18 16:11 | PCM.PNPSY ---
Subjective Date of Service Mar 18, 2017 Subjective Patient without new complaints today. She continues to report auditory hallucinations, hearing voices of God. Denies any malignant voices however. Pt continued to feel "tipsy", as before patient believes her medications are the source of her fatigue and that she requires consistent coffee intake in the morning to stay alert. When asked about medication adherence, patient states it is useless discussing it. as she is required to take medications. Patient talked briefly about her plans when she is discharged from the hospital; her goals are to return to school, obtain a degree in criminal justice, with ultimate intent to help those in similar situation as herself. In the interim, she plans to volunteer at [employer]. She reports that she would prefer not to take lipitor and will try to manage her elevated cholesterol with diet and exercise. She was given a healthy living/diet pamphlet by the tool setter and she plans to use it. Sleep: 7.5 hours, "good considering" Appetite: Good appetite Suicidal and homicidal ideation: Denies Auditory hallucinations: Benevolent voice of God Visual hallucinations: Denies Other Psychotic Symptoms: limited insight Anxiety: Denies Depression: Denies Current Medications Current Medications Olanzapine 20 mg HS PO Last administered on 03/17/17t 19:49; Admin Dose 20 MG; Start 03/16/17 at 21:00 Mental Status Exam Vital Signs Vital Signs Date Time Temp Pulse Resp B/P Pulse Ox O2 Delivery O2 Flow Rate FiO2 03/18/17 09:07 35.9 66 18 118/73 Appearance: Neat/well groomed Attitude: Pleasant, Cooperative Behavior: Other (somewhat irritated with questions) Affect: Restricted Mood: Irritable (mildly) Thought Process/Associations: Logical/Sequential Speech Production: Soft Speech Rate: Lags/Latency Speech Articulation: Normal Thought Content: Negativistic, Suspicious Danger to Self/Suicidal Ideati: None Danger to Others: None Delusions: Paranoid (Endorses mild regarding medications) Hallucinations: Auditory (endorses hearing God), Visual (Denies) Consciousness: Alert Orientation: Person, Place, Situation Memory: Short Term Memory (Impaired) Estimate Intellectual Function: Average Basis for IQ estimate: Word use/vocabulary, Educational history Attention/Concentration & Cogn: Impaired Insight: Limited Judgement: Limited Result Diagram: 03/14/17 0830 03/17/17 0855 Mental Health Plan Patient is a 31-year-old, white female, who presents in a mute but 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 Previously, she had been in a catatonic state while here in our unit. She is a very poor historian. She does have a history of both schizophrenia and polysubstance abuse but her urine toxicology was negative at this time. It appears she has been noncompliant with her medications and has had a gradual return of anxiety initially and then acute psychosis. She could not participate in the initial evaluation, and was unable to have an idea of her thoughts in the past. She has had intense feelings about God and multiple oriental orthodox delusions. Patient is observed to have improved changes in speech, mood, and affect from yesterday and overall. Mood and affect are congruent. Patient continue to have auditory hallucination, hearing God's voice, though denies any of the negative voices or voices commanding her to harm others. She still harbors suspicions towards taking her medication as they cause unwanted drowsiness. She refused her atorvastatin due to fear of side effects and desire to try to adjust lipids through diet and exercise. The patient's visit with her pillowcase folder went well and her outpatient team feels that she is appropriate for discharge. Given her reluctance around medication, poor insight, and history of non-adherence, a 90 day LRO is necessary prior to discharge if the 90MRO is to be reduced. [place] AXIS I 1. Schizophrenia, chronic, paranoid. 2. Substance abuse, polysubstance, currently sober. 3. Tobacco use disorder AXIS II Deferred. AXIS III Dyslipidemia AXIS IV Mild. AXIS V Current Global Assessment of Functioning equal to 40. Medications Olanzapine 20mg PO HS Depakote-ER 1500mg PO HS Vistaril 50mg PO Q4H PRN Nicotine 14 mg patch daily Nicotine 2mg Buccal Q6h Treatments 1. The patient is admitted to the inpatient unit and will be provided a safe and secure environment. 2. The patient is denying current active suicidality and is not in need of a one-to-one at this time. 3. The patient is encouraged to participate with group and milieu activities. 4. The patient will be seen by the treatment team on a daily basis to assess symptoms, side effects and response to treatment. 5. Depakote (QD) 1500mg at bedtime, VPA 62 on 03/17/17 6. Continue olanzapine to 20mg HS 7. Prolactin level elevated at 52.5 but patient declining trial of bromocriptine. 8. Patient stabilizing on current medications and should be able to be discharged on less restrictive order 9. If patient does not agree to LRO, patient will need a 90 day MR on 03/19. Attending Statement The patient was seen and examined together with Dr. Melara on 03/18/17 and I have added additional information to the note above. Preet Melara DO Mar 18, 2017 16:11 Quinn Rosen MD Mar 19, 2017 08:59
--- NOTE | 2017-03-18 16:53 | NUR ---
Observations [id number] Pt communicative with peers and staff, focused on discharge plan for tomorrow. Pt good with ADL's, attended all meals eating 100%. Pt read, colored, showered and organized room aligning with her goals for the day. She did not participate in group activities, due to discharge planning. Pt was observed every 15 minutes of shift as directed.
[2017-03-18] MEDS: Alum-Mag Hydrox-Simeth 30 mL Suspension PO PRN (17:54)
[2017-03-18] MEDS: Divalproex (QD) 500 mg ER24 Tablet PO SCH (21:00)
--- NOTE | 2017-03-18 22:04 | NUR ---
nursing note:Pt is fairly linear and logical with occasional wandering off. When asked what got her in here: "I took a sip of beer and a hit off a pipe that was laced with something." We talked about the moral of the story and she reports some history with AA and made a note for herself to go back. She says "AA saved my life once."She likes [facility] through her caodaism. We also talked about other things that make you feel good and she talked about getting Dopamine from exercise, and added exercise to her to-do list. She says she is sleeping well "without any sleeping pills" and denies any pain. She feels she is ready to discharge and worked on her discharge paperwork tonight.
--- NOTE | 2017-03-19 05:01 | NUR ---
Observations 2300 to 0700 Pt was asleep when my shift started. Pt remained asleep and in bed. Pt first appeared asleep at 2130 according to q15 check sheet, awoke about 0200 and was back asleep at 0245. Pt was observed every 15 minutes through the night as ordered. Pt slept well through the night other than waking up once.
--- NOTE | 2017-03-19 06:05 | NUR ---
Nursing Note Blending Tank Helper 11pm -7am Pt asleep at start of shift and remained asleep for the duration. Monitored pt q 15 minutes for safety location and accountability
--- NOTE | 2017-03-19 09:36 | PCM.DIMED ---
Discharge Instructions Date of Service Mar 19, 2017 Dates of Hospitalization Feb 28, 2017 at 00:18 Discharge Diagnosis Discharge Diagnosis Schizoaffective DO Diet Discharge Diet: No restrictions Activity Discharge Activity: No restrictions Jose Juan Cunningham DO Mar 19, 2017 09:36
[2017-03-19] MEDS ORDERED: DIVA500T14 PO (09:39)
[2017-03-19] MEDS ORDERED: OLAN20TA16 PO (09:39)
[2017-03-19] MEDS ORDERED: HYDR50CA3 PO (09:39)
[2017-03-19] MEDS ORDERED: CLOT45CR7 TOP (09:39)
--- NOTE | 2017-03-19 11:19 | NUR ---
Discharge Pt left the unit @ 1115 to self. She spoke with her casework specialist today prior to discharge and is aware of her appointment on 03/21/17. All discharge paperwork signed along with belongings list. Pt received her prescriptions and stated she would get them filled at [facility]. Her mood was happy and looking forward to going home. Denied anxiety or thoughts of self harm.
--- NOTE | 2017-03-19 11:31 | DIS ---
[address] [address] DISCHARGE SUMMARY PATIENT: KARLO SMITH : 1985 MR#: [id number] ADMIT: 02/28/2017 JOB ID: [id number] DIS: DATE: 03/19/2017 ADMITTING DIAGNOSES: [place] I: 1. Schizophrenia paranoid type 2. Substance use disorder not otherwise specified 3. Alcohol use disorder severe chronic [place] II:Deferred [place] III:None [place] IV:Mild [place] V:GAF1 current 30 DISCHARGE DIAGNOSES: [place] I: 1. Schizophrenia paranoid type 2. Substance use disorder not otherwise specified 3. Alcohol use disorder 4. Tobacco use disorder [place] II:Deferred [place] III:Dyslipidemia [place] IV:Mild [place] V:GAF current 35 REASON FOR ADMISSION: Patient was a noted long-term chronic and persistent paranoid schizophrenia with noted history of medication noncompliance. HOSPITAL COURSE: During the course of hospitalization the patient's medication history was reviewed, and she was re-initiated on doses of Zyprexa and Depakote. Throughout the hospital course the patient did show significant improvement with stabilization with medication interventions and eventual applications for LR-90 with release was pursued. Throughout hospital course, patient agreed to continue to cooperate with aftercare services through [facility] for both case management and medication management purposes. Throughout hospital course, patient did have laboratory data collected including 2 separate CBCs with essential normal findings last noted on March 14. She also had a metabolic panel collected on March 17 with essential findings for liver function. She did have 2 separate panels for history of hyperlipidemia. Her triglycerides on March 17 were within normal range at 140. Her cholesterol was mildly elevated at 218, LDL fraction at 130, HDL of 60. She also had a prolactin level drawn on March 17 mildly elevated at 52.5. Reference range was noted at 4.8-23.3. She did also have an updated valproic acid level which was noted at 62 on March 17. CONDITION AT TIME OF DISCHARGE: The patient was initially somewhat confused about the applications for LR90 with interventions by myself she eventually agreed and the patient was scheduled for discharge accordingly. MENTAL STATUS EXAMINATION: Her speech was of normal tone, frequency, and volume. Her mood was neutral. Affect was somewhat incongruent. Her thought process showed no evidence of racing thoughts. She was fairly loose and disorganized, but redirectable. She denied any evidence of current suicidal, homicidal ideation. No evidence of active hallucinations or delusions on interaction, but she does appear to be responding to stimulus at times. She was alert, oriented to time and place. Attention and concentration intact. Memory intact in the short term, half-way recent. Insight and judgment were deemed poor. DISCHARGE PLANS: Include: 1. Discharge under LR90 with followup care through [facility], both case management and medication management. Appointments are per heel caser ELENITA. 2. Continuation medications including Depakote ER 1500 mg at bedtime, 1 month supply of Depakote was given, no refills. Reason for usage mood stabilizer. 3. Continuation of Zyprexa 20 mg at bedtime, 1 month supply, no refills. Reason for usage antipsychotic. 4. Continuation of Vistaril 50 mg q.4 hours p.r.n. #120, no refills. Reason for usage anxiety. 5. The patient was highly encouraged to maintain a clean and sober lifestyle, based on her significant history of both substance abuse and alcohol. ARTI
== END 2017-03-19 11:15 | disposition home or self-care (01) | DRG 885 ==
LOC: SED 14:17 → MHC 02-28 00:18
PROVIDERS: ADMIT Psychiatry & Neurology Psychiatry; ATTEND Psychiatry & Neurology Psychiatry
DX: F20.0 Paranoid schizophrenia (principal); F10.99 Alcohol use, unspecified with unspecified alcohol-induced disorder; E78.5 Hyperlipidemia, unspecified; F17.210 Nicotine dependence, cigarettes, uncomplicated; F19.90 Other psychoactive substance use, unspecified, uncomplicated

== ENCOUNTER 2017-04-25 13:29 | Emergency (ER) | payer OTHER ==
[~2017-04-25] VITALS: Ht 165.1 cm; Wt 92.3 kg
[~2017-04-25 13:29] MED LIST changes: +OLAN20TA16 PO
[2017-04-25 13:31] VITALS: BP 130/84; PULSE 72; RESP 20; O2SAT 96
[2017-04-25 15:06] LABS: BASOPHILS % (AUTO) 0.4 % (0-3); EOSINOPHILS % (AUTO) 3.7 % (0-5); MONOCYTES % (AUTO) 4.8 % (4-12); Mean Corpuscular Hemoglobin 33.9 pg (27.0-35.0); Mean Corpuscular Volume 97.6 fL (81-100); NEUTROPHILS % (AUTO) 50.9 % (40-74); Platelet Count 180 bil/L (150-400)
--- NOTE | 2017-04-25 16:15 | ED.REPORT ---
HPI-Psychiatric Illness Date of Service Apr 25, 2017 ED Provider: Sangita Dwyer MD The patient is a 31 year old female with a hx of schizophrenia presenting to the ED by a embedded case manager at [place] due to decompensation, potential harm to herself and responding to internal stimuli. The pt was recently admitted here and was discharged on March 19. She is on LRO and is noncompliant with her medications. HPI limited due to mental status. Nursing Notes Stated Complaint: MENTAL EVAL Chief Complaint: Psychiatric Complaint Nursing Notes Reviewed: Yes Allergies: Coded Allergies: Sulfa (Sulfonamide Antibiotics) (Verified Allergy, Severe, 06/29/15) Scheduled Clotrimazole 1% (Gyne-Lotrimin 7 1%) 45 Gm Cream.appl 1 APPLIC TOP BID Divalproex ER (Divalproex ER) 500 Mg Tab.er.24h 1,500 MG PO HS Olanzapine (Olanzapine) 15 Mg Tablet 15 MG PO HS Olanzapine (Olanzapine) 20 Mg Tablet 20 MG PO HS Scheduled PRN Hydroxyzine Pamoate (HydrOXYzine Pamoate) 50 Mg Capsule 50 MG PO TID PRN PRN For Itching Hydroxyzine Pamoate (HydrOXYzine Pamoate) 50 Mg Capsule 50 MG PO Q4H PRN PRN FOR ANXIETY,AGIT, OR INSOMNIA General Time Seen by MD: 14:07 Chief Complaint Other (danger to self) Hx Obtained From: Brush Machine Setter Onset Occurred: Onset unknown Severity: Current: No pain currently Severity: Maximum: No pain Recent Healthcare: No recent doctor visit, No recent hospitalization Similar Sx Previous: Yes Risk-Psychiatric Illness Suicide Risk Stratification Suicide Risk Factors - Adult: : Prior psych admission RF Statements: Risk factors reviewed Past Medical History Past Medical History Notes: Recent admission with discharge January 18 for history of schizophrenia and polysubstance abuse, patient is on LRO and affadavit today indicates non-compliance (02-26-17) Recent ED visit with mild psychosis and delusions of , but not to extent of requiring hospitalizaation (01/31/17) Past Medical History 1) Schizophrenia 2) History of polysubstance abuse Past Surgical History Unknown Smoking History Light Tobacco Smoker Social History Alcohol Use: In recovery Drug Use: Meth, Other Ambulatory Status Independent Review of Systems Unable to Obtain ROS Mental status Physical Exam Initial Vital Signs Vital Signs (First) Date Time Temp Pulse Resp B/P Pulse Ox O2 Delivery O2 Flow Rate FiO2 04/25/17 13:31 36.8 72 20 130/84 96 04/25/17 17:58 Room Air Head / Eyes: Atraumatic, Normocephalic, PERRL ENT: Mucous membranes moist, Conjunctiva normal, No scleral icterus Neck: Supple, Non-tender, Full range of motion Respiratory: Breath sounds normal, Clear to auscultation, No respiratory distress Cardiovascular: Regular rate & rhythm, Heart sounds normal, Intact distal pulses Abdomen / GI: Soft, Non-tender, No guarding, No rebound, No distention Extremities: Vascular intact, Neuro intact, No swelling, No tenderness Skin: Warm, Dry, No cyanosis General/Constitutional: Awake, Alert Neurologic: Oriented X3, Speech NL, No motor deficits, No sensory deficits, Memory NL Abnormal Mood/Affect: Positive: Flat affect Psychiatric: Good eye contact wont answer any questions Interpretation & Diagnostics Interpretation & Diagnostics: Urine shows no and positive for marijuana only Lab Results Interpretation Result Diagram: 04/25/17 1453 04/25/17 1453 Test 04/25/17 14:53 White Blood Count 8.6th/mm3 (3.8-10.1) Red Blood Count 4.54mil/mm3 (3.90-5.20) Hemoglobin 15.4g/dL (12.0-15.6) Hematocrit 44.3% (35.0-46.0) Mean Corpuscular Volume 97.6fL (81-100) Mean Corpuscular Hemoglobin 33.9pg (27.0-35.0) Mean Corpuscular Hemoglobin Concent 34.8% (32.0-37.0) Red Cell Distribution Width 12.2% (12.3-15.4) Platelet Count 180bil/L (150-400) Neutrophils (%) (Auto) 50.9% (40-74) Lymphocytes (%) (Auto) 40.1% (14-46) Monocytes (%) (Auto) 4.8% (4-12) Eosinophils (%) (Auto) 3.7% (0-5) Basophils (%) (Auto) 0.4% (0-3) Hold Urine Received (Received) Sodium Level 139mEq/L (134-144) Potassium Level 4.4mEq/L (3.5-5.2) Chloride Level 102mEq/L (97-108) Carbon Dioxide Level 21mmol/L (18-29) Blood Urea Nitrogen 11mg/dL (6-20) Creatinine 1.01mg/dL (0.57-1.00) Estimat Glomerular Filtration Rate 91mL/min (>59) Glucose Level 139mg/dL (60-99) Calcium Level 9.6mg/dL (8.5-10.1) Total Bilirubin 0.2mg/dL (0.0-1.2) Aspartate Amino Transf (AST/SGOT) 17U/L (0-50) Alanine Aminotransferase (ALT/SGPT) 15U/L (0-32) Alkaline Phosphatase 71U/L (25-150) Total Protein 7.3g/dL (6.4-8.4) Albumin 4.7g/dL (3.4-5.0) Thyroid Stimulating Hormone (TSH) 2.530uIU/mL (0.450-4.500) Hold [place] Top Tube Received (Received) Re-Eval/Medical Decision Med Decision/Clinical Course 31-year-old known schizophrenic woman. Recently admitted to [facility] and is on an LRO. She has been medically screened and is medically clear. Only positive in her drug urine tox screen is marijuana. Over the last month has not been taking medications. At this point is minimally verbal or make eye contact but will not respond to direct questioning. Does seem to be responding to internal stimuli. Not able to care for herself and clearly is gravely disabled. DCR will be contacted with the expectation that she will be detained for medical management and stabilization of her schizophrenia Re-Evaluation/Progress : Time of Eval: 17:54 Re-Evaluation/Progress Note: Patient rechecked. Physical examination performed. Patient denies any pain, tenderness, or harming herself. Counseled Regarding: Diagnosis, Lab results, Need for follow-up, When/why to return to ED Discharge & Departure Shift Change Sign-Out Patient Care Transferred: Yes Discussed Complaint(s): Yes Additonal Information: Anticipate patient will be detained. No current beds in our care center at [facility] will begin looking for beds at other facilities. Care is turned over to Dr. Dukes after discussion of findings and anticipated dispo Impression: Primary Impression: Schizophrenia Schizophrenia type: unspecified Qualified Code: F20.9 - Schizophrenia, unspecified Additional Impression: Gravely disabled )( Condition at Discharge: Clear for psych facility Disposition: Transfer, Psychiatric Inpt Discharge Condition All VS Reviewed: Yes Condition: Improved Referrals: [facility] (PCP) Scribe Attestation Portions of this note were transcribed by Elaine Clayton and Indra May. I, Dr. Dwyer personally performed the history, physical exam and medical decision -making; I reviewed and confirmed the accuracy of the information in the transcribed note. Signed by: Sigifredo De La Cruz, 04/25/2017 copies to: [facility] Sangita Dwyer MD Apr 25, 2017 16:15 Apr 25, 2017 16:17 ELAINE CLAYTON Apr 25, 2017 18:15
[2017-04-25 17:58] VITALS: BP 87/55; PULSE 95; O2SAT 95
[2017-04-25 19:20] VITALS: BP 118/77; PULSE 51; RESP 17; O2SAT 100
== END 2017-04-25 20:19 | disposition other institution (70) ==
LOC: SED 13:29
DX: F20.9 Schizophrenia, unspecified (principal); F79 Unspecified intellectual disabilities; F17.200 Nicotine dependence, unspecified, uncomplicated; Z88.2 Allergy status to sulfonamides